=== PATIENT | male | born 1950 | race Caucasian/White ===

== ENCOUNTER → 2017-04-26 | Outpatient (CLI) | payer MEDICARE, SELFPAY | PROVIDERS: Visit Provider Nurse Practitioner Family | DX: Z02.4 Encounter for examination for driving license (principal) ==

== ENCOUNTER → 2017-06-05 07:27 | Outpatient (CLI) | payer MEDICARE, SELFPAY ==
[2017-06-05 07:47] LABS: Basophils % 0.2 % (0.1-2.0); Eosinophils # 0.2 K/mm3 (0.0-0.4); Eosinophils % 2.9 % (0.1-12.0); Hematocrit 42.3 % (42.0-52.0); Hemoglobin 14.1 g/dL (14.1-18.0); Lymphocytes # 1.3 K/mm3 (0.7-4.5); Lymphocytes % 23.9 K/mm3 (10-50); Mean Corpuscular HGB Conc 33.3 g/dL (31.8-35.4); Mean Corpuscular Hemoglobin 29.9 pg (27.0-31.2); Mean Corpuscular Volume 89.9 fl (80-94); Mean Platelet Volume 7.7 fl (7.4-10.4); Monocytes # 0.3 K/mm3 (0.1-1.0); Monocytes % 5.8 % (1.7-9.3); Neutrophils # 3.7 K/mm3 (1.8-7.8); Neutrophils % 67.3 % (37.0-80.0); Platelet Count 222 K/mm3 (142-424); Red Blood Count 4.71 M/mm3 (4.60-6.20); Red Cell Distribution Width 13.5 % (11.5-17.5); White Blood Count 5.5 K/mm3 (4.8-10.8)
[2017-06-05 08:53] LABS: Erythrocyte Sedimentation Rate 11 mm/hr (0-20)
[2017-06-05 13:08] LABS: C-Reactive Protein < 0.2 mg/L (0.0-0.9)
== END ==
PROVIDERS: PCP Family Medicine; Visit Provider Orthopaedic Surgery
DX: Z01.818 Encounter for other preprocedural examination (principal); M17.10 Unilateral primary osteoarthritis, unspecified knee
CPT/HCPCS: 36415; 85025; 85651; 86140

== ENCOUNTER → 2017-06-17 08:07 | Outpatient (CLI) | payer MEDICARE, SELFPAY ==
[2017-06-17 10:00] LABS: Anion Gap 10.3 mEq/L (5-15); Blood Urea Nitrogen 15 mg/dL (7-18); Carbon Dioxide 29 mmol/L (21.0-32.0); Chloride 107 mmol/L (98-107); Creatinine,Serum 1.04 mg/dL (0.70-1.30); Estimated Glomerular Filt Rate 71 ml/min (>60); GFR (African American) 86 ML/MIN (>60); Glucose 109 mg/dL (74-106); Potassium 4.3 mmoL/L (3.5-5.1); Sodium 142 mmol/L (136-145)
== END ==
PROVIDERS: Family Provider Family Medicine; PCP Family Medicine; Visit Provider Orthopaedic Surgery
DX: M17.12 Unilateral primary osteoarthritis, left knee (principal); Z01.818 Encounter for other preprocedural examination
CPT/HCPCS: 36415; 80048; 86850

== ENCOUNTER 2017-06-19 11:30 | Inpatient (IN) | payer MEDICARE, SELFPAY ==
[2017-06-16 10:49] VITALS: BMI 27.3
[2017-06-19] VITALS (21 sets, daily range): BP systolic 129–157; BP diastolic 67–90; PULSE 76–104; RESP 12–18; TEMP 34.4–43; O2SAT 94–99; BMI 29.2
--- NOTE | 2017-06-19 11:20 | P.PN_ITS ---
[facility] Anesthesia Checklist - Patient Identification Patient Identification: Arm Band - Structural Data Admitted From: Home Planned Operative Procedure/s: left tka Consent for Planned Operative Procedure(s) Verified: Yes Verified Documents: Surgical Consent, History and Physical - NPO Status Verified Time NPO: 00:00 - Additional verifications Anesthesia Reactions: No - Airway Assessment C-Spine Mobility Assessed: Yes (mp2) TMJ Mobility Assessed: Yes Dentition: Good Dentition - Neurological Assessment Level of Consciousness: Awake, Alert - Anesthesia Plan Anesthesia Risk discussed: Yes Anesthesia Plan: Verified ASA Class: I Anesthesia Type: General (with fem/sciatic nerve block) [facility] Anesthesia HX I have reviewed the patient's past medical history: Yes Medical History: Denies:: Cancer, Diabetes Mellitus Type 1, Diabetes Mellitus Type 2, MRSA, Seizures Other Medical History: Denies: Blood Transfusion Reaction Laterality Cases: Right: Arthroscopy Shoulder, Bilateral: Other Other Surgeries: Yes: Other (Back surgery x3) Amputation: No Fractures: No *Family Hx:: Cancer
--- NOTE | 2017-06-19 11:45 | XR_ITS ---
XR knee LT 2V Ordering Physician: Matheus Garrison MD Patient Age: 67 years: Male HISTORY: ITS.REASON: post op TECHNIQUE: AP lateral left knee postop COMPARISON :. Preoperative left knee 03/14/2017 FINDINGS Left TKA now place. The components appear to be in good position with satisfactory relationships.. . No fracture nor loosening. Postsurgical changes throughout soft tissues of the leg with air and gas most evident throughout the anterior soft tissues of the lower thigh, as well as, Anterior to the knee and proximal tibia. IMPRESSION: Left ERIC a.m. place Recent Postsurgical changes. Evident
--- NOTE | 2017-06-19 13:03 | PC.NURSE ---
16F coude used as resistance met upon insertion
[2017-06-19 14:51] LABS: Microscopic,Cath URINE MICROSCOPIC (MICROSCOPIC)
--- NOTE | 2017-06-19 15:13 | HMH.ANESI ---
[facility] Anesthesia Record Part I Intake, IV Amount: 2,500 Estimated blood loss (mL): 10 Urine output (mL): 300 Blood Pressure: 155/88 SaO2: 96 Pulse Rate: 88 Respiratory Rate: 12 Temperature: 99.3 F Patient is:: Drowsy, Stable Stable to PACU at:: 15:15
--- NOTE | 2017-06-19 15:15 | P.PN_ITS ---
[facility] Anesthesia Record Part II Discharge Time: 15:45 Destination: floor PACU nurse assessment reviewed?: Yes Patient Condition:: Good Anesthesia Complications:: None
[2017-06-19 15:16] LABS: Appearance,Urine/Cath CLEAR (Clear); Bilirubin,Cath Negative (Negative); Blood, Urine/Cath Negative (Negative); Color,Urine/Cath YELLOW (Yellow); Glucose,Urine/Cath (UA) Negative (Negative); Ketones,Urine/Cath Negative (Negative); Leukocyte Esterase,Cath Negative (Negative); Nitrate,Cath Negative (Negative); Protein,Urine/Cath Negative (Negative); Urobilinogen,Cath 0.2 EU/dl (0.2)
[2017-06-19 15:37] LABS: RBC,Urine/Cath Occasional # /hpf (0-3); WBC,Urine/Cath Occasional #/hpf (0-3)
--- NOTE | 2017-06-19 19:12 | PC.NURSE ---
pt has not used overage shortage and damage clerk pump
[2017-06-20] VITALS (9 sets, daily range): BP systolic 104–151; BP diastolic 58–90; PULSE 58–96; RESP 18–20; TEMP 36.5–37.3; O2SAT 93–98
--- NOTE | 2017-06-20 03:24 | PC.NURSE ---
Patient laying in bed resting at this time with spouse at bedside. Has not complained of any pain this shift. Has not yet been up on bedside. Encouraged patient to notify RN when ready to get up. Has repositioned self with standby assist. No edema, strong pulses in foot. Lungs are clear, resp even and nonlabored, + bowel sounds x 4. IV is patent. Has no needs at this time. Bed locked in low position, side rails up x 2. Call Light within reach.
[2017-06-20 06:42] LABS: Eosinophils % 0.1 % (0.1-12.0); Hematocrit 36.8 % (42.0-52.0); Hemoglobin 12.9 g/dL (14.1-18.0); Lymphocytes # 0.7 K/mm3 (0.7-4.5); Lymphocytes % 3.3 K/mm3 (10-50); Mean Corpuscular HGB Conc 34.9 g/dL (31.8-35.4); Mean Corpuscular Hemoglobin 30.7 pg (27.0-31.2); Mean Corpuscular Volume 87.8 fl (80-94); Mean Platelet Volume 7.5 fl (7.4-10.4); Monocytes # 0.6 K/mm3 (0.1-1.0); Monocytes % 2.6 % (1.7-9.3); Neutrophils # 20.6 K/mm3 (1.8-7.8); Neutrophils % 93.9 % (37.0-80.0); Platelet Count 234 K/mm3 (142-424); Red Blood Count 4.19 M/mm3 (4.60-6.20); Red Cell Distribution Width 13.2 % (11.5-17.5); White Blood Count 21.9 K/mm3 (4.8-10.8)
[2017-06-20 06:44] LABS: MANUAL DIFFERENTIAL MANUAL DIFFERENTIAL (MANUAL DIFF)
[2017-06-20 06:58] LABS: Anion Gap 12.8 mEq/L (5-15); Blood Urea Nitrogen 18 mg/dL (7-18); Carbon Dioxide 25 mmol/L (21.0-32.0); Chloride 106 mmol/L (98-107); Creatinine Clearance Estimated 92 mL/min (0-300); Estimated Glomerular Filt Rate 74 ml/min (>60); GFR (African American) 90 ML/MIN (>60); Glucose 138 mg/dL (74-106); Potassium 3.8 mmoL/L (3.5-5.1); Sodium 140 mmol/L (136-145)
--- NOTE | 2017-06-20 07:32 | PC.NURSE ---
Report received from Cuauhtemoc Benjamin RN.
--- NOTE | 2017-06-20 07:43 | P.CONPHA_ITS ---
[facility] Pharmacy VTE Monitoring - Patient Demographics Admission date: 06/19/17 Report Date: 06/20/17 Time: 07:43 Allergies/Adverse Reactions: Patient Allergies onion [ONION] Allergy (Mild, Verified 06/19/17 09:40) Height: 1.78 m Weight: 92.249 kg - VTE Risk Labs: VTE Related Lab Results Hgb 12.9 g/dL (14.1-18.0) L 06/20/17 06:05 Hct 36.8 % (42.0-52.0) L 06/20/17 06:05 Plt Count 234 K/mm3 (142-424) 06/20/17 06:05 BUN 18 mg/dL (7-18) 06/20/17 06:05 Creatinine 1.00 mg/dL (0.70-1.30) 06/20/17 06:05 Estimated Creat Clear 92 mL/min (0-300) 06/20/17 06:05 Was VTE Risk Assessment Performed: Yes VTE Score: 5 VTE Risk Level: Low Risk Clinical Trial Participant: No - Prophylaxis VTE Prophylaxis Ordered?: Yes Types of VTE Prophylaxis: TEDS Knee High, IPCS Thigh High Location of Applied Device: Right Leg
--- NOTE | 2017-06-20 11:09 | HMH.PTEV ---
Physical Therapy Evaluation Rehab PT IP Evaluation Start: 06/20/17 10:54 Freq: ONCE Status: Active Protocol: Document 06/20/17 10:54 PWANAT (Rec: 06/20/17 11:09 [email or web address] [id number]) Subjective/History History History This is the initial PT eval for Matheus Kuhn. Pt admitted to [facility] s/p L TKA Subjective Subjective Pt rpeorts nerve block is still active - pt was unable to extend knee or pump ankle Rehab PT IP Eval Objective Appearance Patient Behavior Appropriate Patient Orientation Person Place Time Name Year Patient Baseline Difficulty following instructions none Speech Pattern Clear Ambulation Patient Able to Ambulate Yes Ambulation Observation IP General Gait Pattern Observation Decrease Weight Bear (L) Decrease Stride Lngth (L) Ambulation Distance (feet) 2 Ambulation Assistive Device Rolling Walker Balance Ability to Arise Able, uses arms to help Sitting Balance Steady, safe Standing Balance Steady, wide stance Dynamic Sitting Balance Ability Normal Dynamic Standing Balance Ability Fair Transfers Bed Transfer Ability Independent Chair Transfer Ability Supervision/Stand by Sit to Stand Bed Transfer Ability Contact Guard/Hand Hold Sit to Stand Chair Transfer Ability Contact Guard/Hand Hold ROM LLE PT ROM Status ABN Abnormal ROM Comment significant limit 2nd to swelling and bandage MMT LLE PT MMT ABN Abnormal MMT Grade 2+/5 second to nerve block Rehab PT IP prob,goals,plan Problems Date of Evaluation: 06/20/17 PT IP Problems Transfers Gait Balance Self care Rehab Potential Rehab Potential Good Equipment Needs Assistive Devices Rolling / Wheeled Walker Plan PT Intervention Plan Bed Mobility Transfers Gait Balance Safety Therapeutic Exercise PT Plan Frequency BID Duration LOS Discharge Goals Bed Transfer Ability Supervision/Stand by Sit to Stand Chair Transfer Ability Supervision/Stand by Ambulation Assistive
[2017-06-20 12:41] LABS: Lymphocytes % 3 % (10-50); Monocytes % 2 % (2-9); Neutrophils % 95 % (42-76); Total Cells Counted 100
[2017-06-20 12:45] LABS: Platelet Estimate Normal; RBC Morphology Normal
--- NOTE | 2017-06-20 14:28 | HMH.ORTHPN ---
Subjective Date: 06/20/17 Time: 14:28 Interval history: Status post left total knee arthroplasty. Sleeping. Adequate pain control. Hematocrit approximately 36%. Dressing clean and dry. Sensate to light touch. Moves ankle and toes without difficulty. Pedal pulses intact. Up to chair with physical therapy but has not really been walking. PN: Obj Ex Vital signs: Temp Pulse Resp BP Pulse Ox 98.2 F 80 18 120/58 98 06/20/17 13:43 06/20/17 13:43 06/20/17 13:43 06/20/17 13:43 06/20/17 13:43 - Urinary Catheter Management Wang Cath placed during this visit: yes Urethral indwelling: No Insertion date: 06/19/17 Insertion time: 12:20
--- NOTE | 2017-06-20 16:14 | PC.NURSE ---
Pt A&Ox3. VSS. Afebrile. Pt c/o pain 3-08/08 and medicated with PO narcotics per JUN. Pt is opting to use PO meds in lieu of OPHTHALMOLOGY ASSISTANT Morphine. Heart rate reg. Lungs CTA. (R) FA IV infusing LR @ 25ml/hr /s difficulty or s/s of infiltration/infection. Abd soft, non-tender /c active BS x4 quads. Pt reports no BM since surgery and is expelling flatus per anus. (L) knee kim wrap intact /s drng. Ice bag applied to (L) knee on top of drsg. Pt refused JENNIFER hose this shift. Visitors at bedside intermittently throughout shift. Will continue to monitor.
--- NOTE | 2017-06-20 16:45 | SW/DCPLANNER ---
Visited this patient this afternoon regarding discharge plans. Patient and discussed a few different options: outpatient therapy and arranging transportation for three days a week OR swingbed. At this time therapy has stated that patient is improving and swingbed stay may not be necessary. I have discussed this with family but have stated that we will follow up with patient and therapy in the AM to see how patient is feeling/cooperation with therapy. Patient did not have any other questions or needs at this time.
[2017-06-21] VITALS (11 sets, daily range): BP systolic 116–153; BP diastolic 65–87; PULSE 64–89; RESP 16–20; TEMP 36.4–37.1; O2SAT 90–98; BMI 29.1
--- NOTE | 2017-06-21 01:14 | PC.NURSE ---
LAYING IN BED RESTING AT THIS TIME. SPOUSE AT BEDSIDE. HAS REST WELL MOST OF SHIFT. HAS USED PAIN PUMP AND PO PAIN MEDS 2 X THIS SHIFT. LAST RATED PAIN AT A 3. STATES THAT IS A TOLERABLE LEVEL. HAS O2 AT 2L PER NC FOR WOUND HEALING. HAS HAD ICE PACKS APPLIED. ENCOURAGED RANGE OF MOTION, EDUCATED ON RISK OF CLOTTS. LUNGS ARE CLEAR, RESP EVEN AND NONLABORED, AFEBRILE. IV IS PATENT. HAS NO NEEDS AT THIS TIME. BED LOCKED IN LOW POSITION, SIDE RAILS UP X 2, CALL LIGHT WITHIN REACH. ENCOURAGED TO CALL OUT IF NEEDS. WILL CONTINUE TO MONITOR.
--- NOTE | 2017-06-21 04:20 | PC.NURSE ---
INCREASED INSTRUCTIONAL TECHNOLOGY TEACHER PUMP TO 1.5 MG MORPHINE Q 10 MIN WITH LOCKOUT OF 20MG IN 4 HOUR PER PROTOCOL. PT WAS REMAINING IN PAIN DESPITE PAIN MED. WILL CONTINUE TO MONITOR.
--- NOTE | 2017-06-21 11:45 | P.PN_ITS ---
Subjective Date: 06/21/17 Time: 11:20 Principal diagnosis: Status post total knee arthroplasty, left Interval history: Patient of Dr. Garrison seen on the floor as he is out of town. Patient is status post left total knee arthroplasty post op day #2. Patient is sitting up in a chair. Says he is doing well and reports no problems. Patient reports moderate knee pain and says it's well-controlled with medication. Patient still reports some paresthesias in the left foot from the nerve blocks. No history of any nausea or vomiting. No history of any cough, chest pain, shortness of breath or palpitations. Patient is eating and drinking well. Patient says he managed to walk well with the help of physical therapist using a walker. PN: Obj Ex Vital signs: Temp Pulse Resp BP Pulse Ox 97.8 F 67 20 153/85 94 L 06/21/17 11:26 06/21/17 11:26 06/21/17 11:26 06/21/17 11:26 06/21/17 11:26 Narrative: Laboratory Results - last 24 hr 06/20/17 06:05: Total Counted 100, Neutrophils % (Manual) 95 H, Lymphocytes % ( Manual) 3 L, Monocytes % (Manual) 2, Platelet Estimate Normal, RBC Morphology Normal Intake & Output 06/20/17 06/21/17 06/21/17 19:59 03:59 11:59 Intake Total 1261 / 1261 1959 Output Total 951 / 951 Balance 310 / 310 1959 Physical exam: General appearance: alert, active, awake, no acute distress ENT: normal exam; mucous membranes moist Neck: Soft and supple, trachea midline, full range of movements Cardiovascular: regular rate & rhythm, S1-S2 heard, normal peripheral pulses Respiratory: clear to auscultation, normal breath sounds Abdomen: Soft and nontender, normal bowel sounds Neuro: alert, oriented x 3, business employment specialist II-XII normal as tested Psych: normal and appropriate mood/affect; communicates well Extremities: On examination of the left knee, the dressings are clean, dry and intact. I have changed the dressings today and the surgical incision looks clean, dry and healthy. No erythema or discharge noted. Knee range of motion is 5-80? of flexion. Distal pulses are 2+. Capillary refill is brisk. Patient has paresthesias over the left foot from the nerve blocks. Thigh and calf are soft and nontender. Extensor mechanism is clinically intact and quadriceps is actively barbie. Patient is able to actively lift the leg off the chair. - Urinary Catheter Management Wang Cath placed during this visit: yes Urethral indwelling: No Insertion date: 06/19/17 Insertion time: 12:20 Progress Note: A&P (1) S/P total knee arthroplasty Start date: 06/20/17 Status: Acute Assessment and plan: Status post left total knee arthroplasty, postoperative day #2, doing well I reviewed the findings and progress with the patient and his . I have changed the dressings today and the incision is clean and healthy. Patient started physical therapy and mobilization with the help of physical therapist. Discontinue IV fluids as eating and drinking well. Discontinue PIECE WORK CHECKER and continue oral and IV pain medication as needed. Continue DVT prophylaxis. Care management to look into discharge planning- patient wants to go home with appropriate equipment and outpatient physical therapy. Current Visit: Yes
--- NOTE | 2017-06-21 16:38 | PC.NURSE ---
MR. MERCER WILL NEED A ROLLING WALKER RATHER THAN A CANE DUE TO TOTAL LEFT KNEE REPLACEMENT AND GAIT IMMOBILITY ISSUES. OLIVIER CHANEL, MSN, RN
--- NOTE | 2017-06-21 17:59 | PC.NURSE ---
67 YEAR OLD WHITE MALE PRESENTED TO THE HOSPITAL FOR A LEFT KNEE REPLACEMENT. HE HAS DONE WELL TODAY AND AMBULTAED IN THE HALLWAY WITH PHYSICAL THERAPY. HIS IV FLUIDS AND QUALITY ASSURANCE TECHNICIAN PUMP HAVE BEEN DISCONTINUED AND HE PLANS TO DISCHARGE HOME TOMORROW AND COME BACK FOR OUTPATIENT THERAPY. HE HAS BEEN UP IN THE CHAIR MOST OF THE DAY. HIS LUNGS ARE CTA, HE CONTINUES TO COMPLAIN OF PAIN AND WOULD LIKE TO KEEP IT BELOW [address] FITZGERALD VISITED AT BEDSIDE AND HIS DRESSING WAS CHANGED AT THAT TIME. HE CONTINUES TO USE ICE PACKS ON 20 AND OFF 20 MINUTES. HIS HAS VISITED AT BEDSIDE TODAY. HE HAS BEEN GIVEN PAIN MEDICATION EVERY 4 HOURS TODAY. WILL CONTINUE TO MONITOR. OLIVIER CHANEL, MSN, RN
[2017-06-22 04:00] VITALS: BP 138/88; PULSE 95; RESP 20; TEMP 36.8; O2SAT 96
--- NOTE | 2017-06-22 05:42 | PC.NURSE ---
C/O PAIN IN L KNEE, ADMINISTERED 1-2 TAB PER MAR. 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 REPORTED SMALL BROWN, LIQUID STOOL. DRESSING ON L KNEE, CDI. AMBULATES INDEPENDENTLY WITH ROLLING WALKER. VSS. WILL CONTINUE TO MONITOR.
--- NOTE | 2017-06-22 07:20 | PC.NURSE ---
REPORT GIVEN TO Lauren PELAYO W/C
--- NOTE | 2017-06-22 07:39 | PC.NURSE ---
REPORT GIVEN TO Marek CHANEL RN
[2017-06-22 07:48] VITALS: BP 138/84; PULSE 103; RESP 20; TEMP 36.9; O2SAT 96
[2017-06-22 08:00] VITALS: RESP 20
[2017-06-22 08:42] VITALS: RESP 20
--- NOTE | 2017-06-22 09:18 | SW/DCPLANNER ---
Rolling walker has been delivered to this patient from [facility].
[2017-06-22 10:44] LABS: Basophils % 0.1 % (0.1-2.0); Eosinophils # 0.2 K/mm3 (0.0-0.4); Eosinophils % 1.4 % (0.1-12.0); Hemoglobin 13.2 g/dL (14.1-18.0); Lymphocytes # 1.8 K/mm3 (0.7-4.5); Lymphocytes % 14.6 K/mm3 (10-50); Mean Corpuscular HGB Conc 33.7 g/dL (31.8-35.4); Mean Corpuscular Hemoglobin 30.3 pg (27.0-31.2); Mean Corpuscular Volume 89.8 fl (80-94); Mean Platelet Volume 7.7 fl (7.4-10.4); Monocytes % 7.6 % (1.7-9.3); Neutrophils # 9.6 K/mm3 (1.8-7.8); Neutrophils % 76.3 % (37.0-80.0); Platelet Count 238 K/mm3 (142-424); Red Blood Count 4.34 M/mm3 (4.60-6.20); Red Cell Distribution Width 13.4 % (11.5-17.5); White Blood Count 12.6 K/mm3 (4.8-10.8)
--- NOTE | 2017-06-22 12:35 | HMH.DCSUM ---
General - General Admission date: 06/19/17 Discharge date: 06/22/17 HPI HPI: The patient is a 67-year-old male with end-stage left knee osteoarthritis and was admitted electively following an uncomplicated primary uncemented Left total knee replacement on 06/19/2017. He has not responded well to conservative options including NSAID, Tylenol, and interarticular injections for his knee osteoarthritis. He is used assistive walking devices. He is physically active and has a BMI of 28. Total knee arthroplasty is indicated as he is experiencing locking and near falling episodes. The surgical and nonsurgical alternatives were discussed in detail with the patient as well as the risks and benefits of the surgery. He has no significant past medical history. Objective Vital signs: Temp Pulse Resp BP Pulse Ox 98.4 F 103 H 20 138/84 96 06/22/17 07:48 06/22/17 07:48 06/22/17 08:42 06/22/17 07:48 06/22/17 07:48 no acute distress, morbidly obese - *Routine Respiratory Exam Present: CTA bilaterally - *Routine Cardiovascular Exam Present: RRR, Normal S1, Normal S2 - *Routine Abdominal Exam Present: soft, normoactive bowel sounds - *Routine Extremities Exam Comments: On examination of his left knee, the dressings are clean, dry and intact. Knee range of motion is 5? to 100? of flexion. There is diffuse moderate swelling and tenderness around the knee. No erythema, induration or discharge noted. There is 1+ edema over the foot and ankle. Dorsalis pedis and posterior tibial pulses are 2+. Capillary refill is brisk. Sensation is intact to light touch throughout. Thigh and calf are soft and nontender. - *Routine Skin Exam Present: intact, normal turgor - *Routine Neurological Exam Present: alert, oriented X3, CN II-XII intact, normal speech - Routine Psychiatric Exam Present: normal affect, normal thought process, cooperative, good insight, good judgment Hospital Course Hospital Course: Patient underwent an uncomplicated straightforward primary left total knee arthroplasty on 06/19/2017. Following surgery patient progressed well without any complications. His postoperative check x-ray was satisfactory with good alignment and fixation of the components. His postop course was satisfactory and uneventful. He progressed rapidly with physical therapy and was able to mobilize using a walker. He also regained good quadriceps control and was able to actively straight leg raise at the time of discharge. His pain is well controlled with as needed oral Lortab 5. The dressings were changed on the second postoperative day and also at the time of discharge and the wound is healthy and healing well. No signs of any erythema, induration or discharge. He was started on aspirin 325 mg daily for DVT for prophylaxis after surgery. His neurovascular status in both lower extremities is intact. Pedal pulses 2+ bilaterally and fully sensate distally. No clinical evidence of DVT noted. Patient was cleared for discharge by physical therapy. On the day of discharge, the wound is clean and dry. The patient's vital signs have been stable throughout and he is afebrile at the time of discharge. He is being discharged home with self-care. He wants to come to the hospital physical therapy department for outpatient PT. His postop course was uneventful. He progressed well with physical therapy and also regained good quadriceps control. Condition at discharge: improved and stable. Treatments and Procedures: Total knee arthroplasty, left knee; date of surgery 06/19/2017. Results Labs on day of discharge: Labs from last 24 hours 06/22/17 10:38 WBC 12.6 H D RBC 4.34 L Hgb 13.2 L Hct 39.0 L MCV 89.8 MCH 30.3 MCHC 33.7 RDW 13.4 Plt Count 238 MPV 7.7 Neut % (Auto) 76.3 Lymph % (Auto) 14.6 Hettinger % (Auto) 7.6 Eos % (Auto) 1.4 Baso % (Auto) 0.1 Neut # (Auto) 9.6 H Lymph # (Auto) 1.8 Hettinger # (Auto) 1.0 Eos # (Au
--- NOTE | 2017-06-27 12:44 | HMH.OPNOTE ---
Date of procedure: 06/19/17 Pre-op Diagnosis:: Left knee osteoarthritis Post-op diagnosis:: same Procedure performed:: Left total knee arthroplasty Surgeon:: Matheus Garrison MD Tin Flipper(s):: Dr. 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 Blood loss was minimal due to) Operative findings:: The patient was taken to the operating room and placed in the supine position. The patient had received twice daily applications of Bactroban and had applied Hibiclens daily to the involved knee operative site for the 5 days prior to surgery. After appropriate identification, timeout verification, the involved right knee was prepped and draped in the usual sterile fashion. The entire operative team wore isolation suits. The operative site was sealed with Ioban. Preoperative antibiotics consisting of Ancef were given. A midline incision was made with a #10 blade and the tissue sharply dissected. A medial parapatellar incision was made sharply and electrocautery used to seal blood vessels. The patella was carefully everted and a rongeur used to remove osteophytes. The knee was gently flexed and we observe to ensure no disruption of the patella tendon at its insertion occurred. We remove the anterior portions of the medial and lateral menisci and the majority of the fat pad. The ACL was sacrificed. An entry drill was used to drill the cortex of the femur just medial to the insertion of the PCL and anterior by around 1 cm. This allowed entry into the femoral canal. We irrigated it and then placed the intramedullary alignment guide. We then pinned the distal cutting guide in position for a standard cut. Soft tissue retractors were placed and a etechies.in oscillating precision saw used to remove the distal femur. We checked for trueness of the cut and then sized the femur at a size [7] for the Orthocon system. We placed two drill holes at 3? external rotation, checked Whitesides line and the epicondylar axis, and secured the 4-in-1 cutting block. Soft tissue retractors were placed in the anterior cut made followed by the posterior cut and the 2 chamfer cuts. Trueness of cut was confirmed and we placed the extra medullary guide for the tibia. This was placed in the distal aspect of the guide used to center on the distal tibia at approximately the level of the second ray. This alignment was confirmed by the surgeon, the surgeon's assistant surgeon, and even the manager product marketing. We measured off the more worn medial tibial plateau for a 3 mm resection. Using soft tissue guides, the oscillating precision saw was again utilized. We measured depth of cut and work to protect the PCL. The tibia was resected and sized at a size [6]. We removed the posterior aspects of the medial and lateral menisci. We did note that the popliteus tendon had incurred a partial laceration as the tibial plateau was resected. Its overall integrity remained stable and no loss of lateral stabilization incurred. We trialed with the appropriate femoral component and the tibia as well. We used the patella clamp and milled for the patella medializing this. The femoral component a bit lateralized to allow patella tracking. We trialed the components and found the patella to track nicely without any tendency to dislocate. There was no lift off of the tibial tray thus indicating the PCL tensioning was appropriate. Knee flexion was to approximately 120 degrees and extension was to 0?. We decided on this construct for final implantation. The femoral lug holes were punched and the tibial tray placed in slight external rotation, pinned, and the punch for the stem utilized. We then irrigated copiously with pulsatile lavage. Ancef 2 g was mixed with 20 mL of normal saline and injected into the cancellous bone. The femoral canal was plugged with resected bone and pulsatile la
--- NOTE | 2017-06-27 12:52 | P.OP_ITS ---
Date of procedure: 06/19/17 Pre-op Diagnosis:: Left knee osteoarthritis Post-op diagnosis:: same Procedure performed:: Left total knee arthroplasty Surgeon:: Matheus Garrison MD Laboratory Clerk(s):: Dr. Gunderson, indicated secondary to the complexity of the case PAVER LAYER:: Other Anesthesia: GETA, regional Estimated blood loss (mL): -10 (See anesthesia sheet. Blood loss was minimal due to) Operative findings:: The patient was taken to the operating room and placed in the supine position. The patient had received twice daily applications of Bactroban and had applied Hibiclens daily to the involved knee operative site for the 5 days prior to surgery. After appropriate identification, timeout verification, the involved right knee was prepped and draped in the usual sterile fashion. The entire operative team wore isolation suits. The operative site was sealed with Ioban. Preoperative antibiotics consisting of Ancef were given. A midline incision was made with a #10 blade and the tissue sharply dissected. A medial parapatellar incision was made sharply and electrocautery used to seal blood vessels. The patella was carefully everted and a rongeur used to remove osteophytes. The knee was gently flexed and we observe to ensure no disruption of the patella tendon at its insertion occurred. We remove the anterior portions of the medial and lateral menisci and the majority of the fat pad. The ACL was sacrificed. An entry drill was used to drill the cortex of the femur just medial to the insertion of the PCL and anterior by around 1 cm. This allowed entry into the femoral canal. We irrigated it and then placed the intramedullary alignment guide. We then pinned the distal cutting guide in position for a standard cut. Soft tissue retractors were placed and a [employer] oscillating precision saw used to remove the distal femur. We checked for trueness of the cut and then sized the femur at a size [7] for the Retevo system. We placed two drill holes at 3? external rotation, checked Whitesides line and the epicondylar axis, and secured the 4-in-1 cutting block. Soft tissue retractors were placed in the anterior cut made followed by the posterior cut and the 2 chamfer cuts. Trueness of cut was confirmed and we placed the extra medullary guide for the tibia. This was placed in the distal aspect of the guide used to center on the distal tibia at approximately the level of the second ray. This alignment was confirmed by the surgeon, the administrative services assistant surgeon , and even the product design engineer. We measured off the more worn medial tibial plateau for a 3 mm resection. Using soft tissue guides, the oscillating precision saw was again utilized. We measured depth of cut and work to protect the PCL. The tibia was resected and sized at a size [6]. We removed the posterior aspects of the medial and lateral menisci. We did note that the popliteus tendon had incurred a partial laceration as the tibial plateau was resected. Its overall integrity remained stable and no loss of lateral stabilization incurred. We trialed with the appropriate femoral component and the tibia as well. We used the patella clamp and milled for the patella medializing this. The femoral component a bit lateralized to allow patella tracking. We trialed the components and found the patella to track nicely without any tendency to dislocate. There was no lift off of the tibial tray thus indicating the PCL tensioning was appropriate. Knee flexion was to approximately 120 degrees and extension was to 0?. We decided on this construct for final implantation. The femoral lug holes were punched and the tibial tray placed in slight external rotation, pin
== END 2017-06-22 15:00 | disposition home or self-care (01) | DRG 470 ==
LOC: 2ND 11:31
PROVIDERS: Orthopaedic Surgery; Admitting Provider Orthopaedic Surgery; Family Provider Family Medicine; PCP Family Medicine; Visit Provider Orthopaedic Surgery
PROC: (CPT 27447; principal; 2017-06-19 11:00)
DX: M17.12 Unilateral primary osteoarthritis, left knee (principal)
CPT/HCPCS: 27447; 36415; 73560; 80048; 81001; 85007; 85025; 86850; 94761; 96374; 97116; 97161; 97530; C1765; C1776; J2405

== ENCOUNTER → 2017-07-03 13:15 | Outpatient (CLI) | payer MEDICARE, SELFPAY ==
--- NOTE | 2017-07-03 13:37 | XR_ITS ---
XR knee LT 3V HISTORY: Follow-up surgery/total knee arthroplasty ITS.REASON: lt knee post op ORDERING PHYSICIAN: Matheus Garrison MD PATIENT AGE: 67 years COMPARISON: 06/19/2017 FINDINGS: Status post total knee arthroplasty. There is good alignment of the prosthesis. No obvious orthopedic, . IMPRESSION: Good alignment status post total knee arthroplasty
--- NOTE | 2017-07-03 14:22 | NVE_ITS ---
Venous Exam Indications: 729.5 Pain in limb. IMPRESSIONS 1. There is no evidence of significant Reflux. 2. Small, acute superficial vein thrombosis involving the leftlesser saphenous vein. History: Left lower extremity pain. Risk factors: Hypertension. Medications: ASA, 81 mg daily. Labs, prior tests, procedures, and surgery: Left lower extremity joint prosthesis (recent, 20-Jun-2017). Labs, prior tests, procedures, and surgery: Left lower extremity joint prosthesis (recent, 20-Jun-2017). Left lower extremity venous duplex evaluation. Doppler flow study including spectral analysis, color and suazo scale imaging. Location: Vascular laboratory. Patient status: Outpatient. CRITICAL FINDINGS - Reported to: Dr. Meli Peña office - Read back and verified. - 07/03/17 - 15:00 - SVT in LSV, no DVT seen Tables: Venous flow and imaging: + + + + Location Overall Flow properties + + + + Right common femoral Patent Normal phasicity; spontaneous; normal augmentation; compressible + + + + Right saphenofemoral Patent Compressible junction + + + + Right profunda femoral Patent Compressible + + + + Right femoral Patent Normal phasicity; spontaneous; normal augmentation; compressible + + + + Right greater saphenous Patent Normal phasicity; spontaneous; normal augmentation; compressible + + + + Right popliteal Patent Normal phasicity; spontaneous; normal augmentation; compressible + + + + Right posterior tibial Patent Compressible + + + + Right peroneal Patent Compressible + + + + Right gastrocnemius Patent Compressible + + + + Right soleal Patent Compressible + + + + Left lesser saphenous Partially occluded Noncompressible + +
== END ==
PROVIDERS: PCP Family Medicine; Visit Provider Orthopaedic Surgery
DX: Z96.652 Presence of left artificial knee joint (principal); M79.605 Pain in left leg
CPT/HCPCS: 73562; 93971

== ENCOUNTER 2017-08-07 08:00 | Outpatient (RCR) | payer MEDICARE, SELFPAY ==
--- NOTE | 2017-06-23 15:34 | HMH.PTOPEV ---
Rehab Outpatient Evaluation Rehab OP Evaluation Start: 06/23/17 15:24 Freq: Status: Active Protocol: Document 06/23/17 15:25 ALIYAH (Rec: 06/23/17 15:34 ALIYAH [id number]) Electronically Signed By Jai Mckay, PT 06/23/17 15:25 Outpatient Therapy Subjective History Subjective History Pt presents s/p L TKA on . Pt reports 'feels like it' s doing pretty good so far', reporting moderate pain, improving ROM, and improving gait. Next MD appt 07/03/17 Chief Complaint Pain Stiff Weakness Symptom Type Ache Dull Symptoms Relieved By Rest/Positioning Symptoms Aggravated By Physical Activity Walking Prior Functional Limitations None Current Functional Limitations Standing Squatting Walking Stairs Symptom Description Constant but Variable Level of pain today (0-10) 3 Pain scale - at its best (0-10) 3 Pain scale - at its worst (0-10) 6 Hip/Knee Eval Gait Observation General Gait Pattern Observation Antalgic Gait Assistive Device Assistive Devices Rolling / Wheeled Walker Palpation Tenderness left Knee Palpation Finding Tenderness Knee Palpation Overall Comment 2/4 MMT right Hip Strength Reason Not Measured WFL Knee Strength Reason Not Measured WFL left Hip Flexion Strength Grade 5 Normal Hip Abduction Strength Grade 4- Good- Hip Adduction Strength Grade 4- Good- Hip Extension Strength Grade 4- Good- Knee Extension Strength Grade 4 Good Knee Flexion Strength Grade 4 Good ROM right Knee Flexion Active Range of Motion ( 0-130 degrees) left Knee Flexion Active Range of Motion ( 10-95 degrees) Outpatient Therapy Assessment Impairments Problems/Impairmments Palpation Tenderness Impaired Range of Motion Impaired Strength Impaired Gait Pattern Impaired Walking Impaired Standing Impaired Household Care Impaired Stair Climbing Impaired Squatting Subjective C/O Pain Impaired Self Care/Self
== END 2017-08-07 08:01 | disposition home or self-care (01) ==
LOC: PT 08:00
PROVIDERS: Family Provider Family Medicine; PCP Family Medicine; Visit Provider Orthopaedic Surgery
DX: Z96.652 Presence of left artificial knee joint (principal); M25.562 Pain in left knee
CPT/HCPCS: 97010; 97014; 97016; 97110; 97140; 97164; G0283

== ENCOUNTER → 2017-08-21 10:02 | Outpatient (CLI) | payer MEDICARE, SELFPAY ==
--- NOTE | 2017-08-21 10:04 | NVE_ITS ---
Venous Exam Indications: 729.5 Pain in limb. IMPRESSIONS 1. There is no evidence of significant Reflux. 2. No evidence of deep vein thrombosis involving the left lower extremity 3. Superficial vein thrombosis of LSV Disease regression from the study of 03-Jul-2017. Improved from prior exam History: Risk factors: history ofsuperficial vein thrombosis of lesser saphaneous vein Left lower extremity venous duplex evaluation. Doppler flow study including spectral analysis, color and suazo scale imaging. Location: Vascular laboratory. Patient status: Outpatient. Tables: Venous flow and imaging: + +-------+ + Location Overall Flow properties + +-------+ + Left common femoral Patent Normal phasicity; spontaneous; normal augmentation; compressible + +-------+ + Left saphenofemoral junction Patent Compressible + +-------+ + Left profunda femoral Patent Compressible + +-------+ + Left femoral Patent Normal phasicity; spontaneous; normal augmentation; compressible + +-------+ + Left greater saphenous Patent Normal phasicity; spontaneous; normal augmentation; compressible + +-------+ + Left popliteal Patent Normal phasicity; spontaneous; normal augmentation; compressible + +-------+ + Left posterior tibial Patent Compressible + +-------+ + Left peroneal Patent Compressible + +-------+ + Left gastrocnemius Patent Compressible + +-------+ + Left soleal Patent Compressible + +-------+ + (Report amended ) Electronically signed by: Geronimo Jolly [id number]
== END ==
PROVIDERS: Family Provider Family Medicine; PCP Family Medicine; Visit Provider Orthopaedic Surgery
DX: M25.562 Pain in left knee (principal); I82.492 Acute embolism and thrombosis of other specified deep vein of left lower extremity
CPT/HCPCS: 93971

== ENCOUNTER 2017-09-06 09:00 | Outpatient (RCR) | payer MEDICARE, SELFPAY | END 2017-09-06 09:01 | disposition home or self-care (01) | LOC: PT 09:00 | PROVIDERS: Family Provider Family Medicine; PCP Family Medicine; Visit Provider Orthopaedic Surgery | DX: I82.890 Acute embolism and thrombosis of other specified veins (principal); Z96.652 Presence of left artificial knee joint | CPT/HCPCS: 97161 ==

== ENCOUNTER → 2017-11-07 08:24 | Outpatient (CLI) | payer MEDICARE, SELFPAY ==
--- NOTE | 2017-11-07 08:28 | XR_ITS ---
XR knee LT 2V HISTORY: Follow-up total knee replacement ITS.REASON: S/P LEFT TKA ORDERING PHYSICIAN: Matheus Garrison MD PATIENT AGE: 67 years COMPARISON: 07/03/2017 FINDINGS: Overall no change status post total knee replacement with good alignment. There remains some soft tissue swelling in the suprapatellar region. IMPRESSION: No change status post total knee replacement
== END ==
PROVIDERS: Visit Provider Orthopaedic Surgery
DX: Z96.652 Presence of left artificial knee joint (principal)
CPT/HCPCS: 73560

== ENCOUNTER 2018-04-12 09:03 | Outpatient (CLI) | payer SELFPAY | END 2018-04-12 10:35 | disposition home or self-care (01) | PROVIDERS: Visit Provider Nurse Practitioner Family | DX: Z02.4 Encounter for examination for driving license (principal) ==

== ENCOUNTER → 2019-04-08 09:04 | Outpatient (CLI) | payer MEDICARE, SELFPAY ==
--- NOTE | 2019-04-08 09:14 | CT_ITS ---
PROCEDURE: CT ABDOMEN PELVIS WO/W CON CLINICAL INDICATION: RENAL MASS Follow-up renal mass COMPARISON: CTAC CTA-CHEST from 07/20/2016 CT ABDOMEN PELVIS WO CON from 03/27/2019 US KIDNEY from 03/27/2019 TECHNIQUE: IV Contrast: 75ML OPTIRAY 350 Oral Contrast none Axial images obtained with sagittal and coronal reformats. All CT scans at the facility use one or more dose reduction, viz: automated exposure control, ma/kV adjustment per patient size (including targeted exams where dose is matched to indication, i.e. head), or iterative reconstruction technique. FINDINGS: LOWER THORAX: Mild atelectatic or fibrotic change in the left lung base. Small hiatal hernia. ABDOMEN & PELVIS: The liver, spleen, adrenal glands, and pancreas have an unremarkable appearance. There is an exophytic complex nodule along the lower pole of the right kidney which measures 12 mm corresponding to [address] CT abnormality noted on the 03/27/2019. No renal or ureteral calculi. No hydronephrosis. No retroperitoneal adenopathy. The left kidney has an unremarkable appearance. No pelvic mass abnormal fluid collection or focal inflammatory change. There is some increased soft tissue density in the right inguinal area which could be related to prior hernia repair. There is a small left inguinal hernia containing fat. Moderate to severe degenerative changes are present in the lumbar spine with postsurgical changes of the lumbar spine as well. IMPRESSION: Exophytic solid-appearing 12 mm nodule along the lower pole of the right kidney suspicious for a small renal neoplasm. Dictated by: Geronimo Jolly MD 04/08/2019 13:55 Electronically signed by Geronimo Jolly MD in [place] 04/09/2019 09:57
[2019-04-08 09:27] LABS: Blood Urea Nitrogen 15 mg/dL (7-18); Creatinine,Serum 1.21 mg/dL (0.70-1.30); Estimated Glomerular Filt Rate 59 ml/min (>60); GFR (African American) 72 ML/MIN (>60)
== END ==
PROVIDERS: PCP Family Medicine; Visit Provider Urology
DX: N28.89 Other specified disorders of kidney and ureter (principal)
CPT/HCPCS: 36415; 74178; 82565; 84520; Q9967

== ENCOUNTER → 2023-01-06 09:23 | Outpatient (CLI) | payer MEDICARE, SELFPAY ==
--- NOTE | 2023-01-06 | CA_ITS ---
APPROVED REPORT Exam: Exercise Treadmill Technologist: Sherri Ayala, Ht: 5 ft 10 in Wt: 195 lbs BSA: 2.07 m2 HR: 74 bpm BP: 157/96 mmHg Rhythm: NSR, PVCS Medical History Allergies: ONION Cardiac Risk Factors: FHX of CAD Stress Test Details Test: Tevin HR Resting HR: 81 bpm Max Heart Rate (APMHR): 147 bpm Max HR Achieved: 144 bpm Target HR (85% APMHR): 125 bpm % of APMHR: 98 Recovery HR: 89 bpm HR response to stress: Normal HR response to stress BP Resting BP: 152.0/96 mmHg Max BP: 200/85 mmHg Recovery BP: 162.0/95.0 mmHg BP response to stress: Abnormal hypertensive response to stress. ECG Resting ECG: NSR, PVCS Stress EC mm ST depression Arrhythmia: Frequent PVCs (bigeminy pattern), couplets, triplets, and PACs Recovery ECG: Return to baseline within 3 minutes of recovery Recovery Arrhythmia: PVCs Clinical Exercise duration: 06:39 min Highest Stage Achieved: Exercise capacity: 7.0 METs Overall Exercise Capacity for Age: Average Stress ECG Conclusion PT EXERCISED 6:39 ON TEVIN PROTOCOL. SHE WAS ABLE TO ACHIEVE A TOTAL OF 7.0 METS. SHE HAS A NORMAL HR, BUT EXAGGERATED HYPERTENSIVE BP, RESPONSE TO EXERCISE. MAX HR: 144 % OF PM: 98% MAX BP: 200/85 METS: 7.0 TEST STOPPED DUE TO: SOA, FATIGUE NO CP FREQUENT MULTIFOCAL PVCS WITH PERIODS OF VENTRICULAR BIGMEMINY, OCCASIONAL VENTRICULAR COUPLET, AT LEAST ONE TRIPLET. MODERATELY FREQUENT PACS [address] DEPRESSION INFEROLATERALLY CONCLUSION AVERAGE EXERCISE CAPACITY EXAGGERATED HYPERTENSIVE BP RESPONSE TO EXERCISE FREQUENT ECTOPY ABN GXT SUGGESTIVE OF ISCHEMIC CHANGES GXT ONLY (NO IMAGING) Test Summary REST . . . . . . . Sitting REST . . . . . . . Standing REST 27:55 0.0 0.0 81 . 152/ 96 . . Stage 1 01:00 10.0 1.7 99 . . . . Stage 1 02:00 10.0 1.7 107 . . . . Stage 1 03:00 10.0 1.7 107 . 160/ 90 . . Stage 2 01:00 12.0 2.5 119 . . . . Stage 2 02:00 12.0 2.5 124 . . . . Stage 2 03:00 12.0 2.5 136 . 180/ 90 . . Stage 3 00:39 14.0 3.4 144 . . . Stop exercise at 06:39 RECOVERY 01:00 0.0 0.0 119 . . . . RECOVERY 02:00 0.0 0.0 103 . . . . RECOVERY 03:00 0.0 0.0 93 . 200/ 85 . . RECOVERY 04:00 0.0 0.0 89 . 185/ 90 . . RECOVERY 05:00 0.0 0.0 87 . 185/ 90 . . RECOVERY 06:00 0.0 0.0 91 . 172/ 88 . . RECOVERY 07:00 0.0 0.0 89 . 172/ 88 . . RECOVERY 08:00 0.0 0.0 90 . 162/ 95 . . RECOVERY 09:00 0.0 0.0 85 . 162/ 95 . . RECOVERY 09:13 0.0 0.0 85 . 162/ 95 . . Electronically signed by : Mona Costello, 01/17/2023 15:10:52
== END ==
PROVIDERS: PCP Family Medicine; Visit Provider Family Medicine
DX: R06.02 Shortness of breath (principal); Z82.49 Family history of ischemic heart disease and other diseases of the circulatory system
CPT/HCPCS: 93017

== ENCOUNTER 2023-05-19 15:42 | Outpatient (CLI) | payer MEDICARE, SELFPAY ==
[2023-05-19 16:44] LABS: Blood Urea Nitrogen 20 mg/dl (9-20); Estimated Glomerular Filt Rate 50 ml/min (>60); GFR (African American) 60 ML/MIN (>60)
== END 2023-05-19 23:59 ==
LOC: LAB 15:44
PROVIDERS: PCP Family Medicine; Visit Provider Internal Medicine
DX: R94.39 Abnormal result of other cardiovascular function study (principal)
CPT/HCPCS: 36415; 82565; 84520

== ENCOUNTER 2023-05-25 06:56 | Outpatient (CLI) | payer MEDICARE, SELFPAY ==
--- NOTE | 2023-05-25 06:56 | CT_ITS ---
APPROVED REPORT Keel Press Operator: CLINICAL INDICATION Chest Pain TECHNIQUE Image Acquisition: A 128 slice MDCT scanner ([employer] View) was used for data acquisition. A noncontrast coronary calcium scan was performed. A CT attenuation threshold of 130 Hounsfield units (HU) was used for the detection of calcium in contiguous voxels of 1 sq mm in area to be counted as individual lesions. Bolus tracking in the ascending aorta with a threshold of 180 HU was performed. Immediately afterwards, ECG synchronized cardiac CT was then performed from the cardiac base to apex using retrospective gating with ECG tube current modulation. A total of 85 mL of Isovue 370 mg/mL contrast medium was administered at 5 mL/sec followed by a saline flush using a biphasic injection protocol. A tube voltage of 120 KVp was used. The patient received the following medications prior to the cardiac CT. 75 mg of oral metoprolol 15 mg of oral ivabradine 0.8 mg of sublingual nitroglycerin The average heart rate at the time of acquisition was 45 bpm and regular. Image Reconstruction Transaxial images were reconstructed at 0.67 mm slide thickness. Data was reviewed interactively on an advanced workstation capable of 2 and 3-dimensional displays in all conventional reconstruction formats, including multiplanar reformations, maximum intensity projections, curved multiplanar reformations, and volume rendered reconstructions. When applicable, selected routine images describing the relevant coronary anatomy and pathology were saved and sent to PACS. Complications None Technical Quality Overall image quality was good. Coronary artery opacification was adequate. Total DLP (Dose-Length Product) is 2309.3 mGy-cm. The reported value represents the total of one or more individual components during the CT acquisition of this date and at this time, and as such, the same value may appear in more than one CT report depending on the interpreting/reporting physicians. COMPARISON None FINDINGS CT Coronary Calcium Scoring LMA (Left Main Artery) = 131 LAD (Left Anterior Descending) = 426 LCX (Left Coronary Circumflex) = 92 RCA (Right Coronary Artery) = 0 Total Calcium Score = 649 using the AJ-130 method. The observed calcium score of 649 is at 72nd percentile for subjects of the same age, sex, and race/ethnicity. The interpretation of the calcium heart score is based on the following continuum*: 0 = no calcified plaque detected (risk of coronary artery disease is very low ??? less than 5%) 1-10 = calcium detected in extremely minimal levels (risk of coronary diseases is still low ??? less than 10%) 11-100 = mild levels of plaque detected with certainty (mild or minimal narrowing of heart arteries is likely) 101-400 = definite,at least moderate levels of plaque detected (relatively high risk of a heart attack within 3-5 years) >401-999 = extensive levels of plaque detected (high risk of heart attack, high levels of vascular disease are present, high likelihood of at least one significant coronary narrowing) *The calcium heart score quantifies the burden of coronary calcification/plaque in the coronary arteries. The calcium heart score is not able to evaluate the presence or burden of non-calcified (i.e. soft) plaque. There is also identifiable calcification in the ascending and descending thoracic aorta, but not the aortic valve, mitral annulus or mitral valve, pericardium, or myocardium. Coronary CT Angiography The coronary arterial system is left dominant. Quantitative Stenosis Grading: Left Main (LM): The left main originates normally from the left sinus of Valsalva. The LM bifurcates into the left anterior descending artery and left circumflex artery. There is non-calcified plaque in the ostial LM, with approximately 10-30% luminal stenosis. Left Anterior Descending (LAD) and Diagonal Branches: The LAD gives off 3 diagonal branches. There are multiple mixed and eccentric plaque in the proximal and mid-LAD at the level of bifurcation, with an elongated segment of up to 70-90% luminal stenosis. and LAD and its branches are patent with no evidence of atherosclerosis. There is no evidence of LAD bridge. Left Circumflex (LCX) and Obtuse Marginals (OM): The LCX gives off 2 Obtuse Marginal (OM) branch(es). The LCX gives rise to the posterior descending artery. There is mixed plaque in the proximal LCX of up to 30-50% luminal stenosis. Right Coronary Artery (RCA): The RCA originates normally from the right sinus of Valsalva. The RCA is a small caliber vessel. The RCA lumen is difficult to visualize due to small caliber. The RCA lumen grossly appears normal, but cannot entirely rule out luminal narrowing. Non-Coronary Cardiac Findings: Analysis of the left ventricular (LV) structure and function was performed after 3-D reconstruction of the LV from axial images, with user-corrected automatic contouring for assessment of LV volumes and user-defined reconstruction from oblique planes for measurement of 3-D cardiac structure and function. LVEDV: 121 mL LVESV: 41 mL SV: 81 mL LVEF: 66.5 % -The left ventricle is normal in size with normal left ventricular systolic function. -There is no left atrial appendage filling defect. Two right pulmonary veins and two left pulmonary veins drain normally into the left atrium. -No pericardial thickening or calcification. -Central and branch pulmonary arteries in the [id number] are unremarkable. -Thoracic aorta within the visualized thoracic aortic-branches in the [id number] is unremarkable. Extracardiac Structures No significant extra-cardiac findings. Note, however, that this study is focused on the cardiac findings. IMPRESSION -Presence of extensive coronary calcification with an Agatston score = 649 using the AJ-130 method. -The observed calcium score of 649 is at 72nd percentile for subjects of the same age, sex, and race/ethnicity. -Significant, severe, and likely flow-limiting atherosclerosis of the proximal and mid LAD starting at the bifurcation, as well as moderate stenosis in the LCX (left dominant circulation). -CAD-RADS 4A. Management recommendations per ACC/AHA guidelines*, as clinically appropriate. -Calcification in the ascending and descending thoracic aorta *Recommendations: CAD RADS 0: Reassurance. Consider non-atherosclerotic causes of chest pain. CAD RADS 1: Consider non-atherosclerotic causes of chest pain. Consider preventive therapy and risk factor modification. CAD RADS 2: Consider non-atherosclerotic causes of chest pain. Consider preventive therapy and risk factor modification, particularly for patients with nonobstructive plaque in multiple segments. CAD RADS 3: Consider further functional testing. Consider symptom-guided anti-ischemic and preventive pharmacotherapy as well as risk factor modification per published guideline statements. CAD RADS 4A: Consider further functional testing or invasive coronary angiography with revascularization per published guideline statements. Consider symptom-guided anti-ischemic and preventive pharmacotherapy as well as risk factor modification per published guideline statements. CAD RADS 4B: Invasive coronary angiography recommended with revascularization per published guideline statements. Consider symptom-guided anti-ischemic and preventive pharmacotherapy as well as risk factor modification per published guideline statements. CAD RADS 5: Consider invasive angiography and/or viability assessment with revascularization per published guideline statements. Consider symptom-guided anti-ischemic and preventive pharmacotherapy as well as risk factor modification per published guideline statements. CRITICAL RESULT None COMMUNICATION Per this written report The coronary and cardiac findings of this CCTA were reviewed, reported, and signed by Aubrey Costello MD (Dip Brazier) Conclusion Electronically signed by : Mona Costello MD 05/25/2023 13:12:31
[2023-05-25 07:32] VITALS: BP 141/81; PULSE 78; RESP 17; O2SAT 99
[2023-05-25] MEDS: METOPROLOL TARTRATE 25MG TABLET *IVABRADINE+METOPROLOL REGIMINE 25 MG PO (07:32)
[2023-05-25] MEDS: METOPROLOL TARTRATE 50MG TABLET *IVABRADINE+METOPROLOL REGIMINE 50 MG PO (07:32)
[2023-05-25] MEDS: IVABRADINE HCL 7.5MG TABLET *IVABRADINE+METOPROLOL REGIMINE 15 MG PO (07:32)
[2023-05-25 07:59] VITALS: BMI 29.1
[2023-05-25 08:26] VITALS: BP 140/74; PULSE 51; RESP 17; O2SAT 98
[2023-05-25] MEDS: NITROGLYCERIN 0.4MG SL TABLET 0.800000000000000044 MG SL (08:26)
[2023-05-25 08:30] VITALS: BP 123/76; PULSE 64; RESP 17; O2SAT 100
[2023-05-25 08:35] VITALS: BP 90/60; PULSE 47; RESP 17; O2SAT 100
[2023-05-25 08:40] VITALS: BP 105/55; PULSE 45; RESP 18; O2SAT 99
[2023-05-25] MEDS: 0.9 % SODIUM CHLORIDE 50 ML VIAL IV (08:45)
[2023-05-25] MEDS: SODIUM CHLORIDE 0.9% 10ML SYR (RAD ONLY) 10 ML IV (08:45)
[2023-05-25] MEDS: IOPAMIDOL-370 (76%);100ML BOTTLE 85 ML IV (08:45)
== END 2023-05-25 09:25 | disposition home or self-care (01) ==
PROVIDERS: PCP Family Medicine; Visit Provider Internal Medicine
DX: R94.30 Abnormal result of cardiovascular function study, unspecified (principal); R94.39 Abnormal result of other cardiovascular function study; R94.31 Abnormal electrocardiogram [ECG] [EKG]; I25.10 Atherosclerotic heart disease of native coronary artery without angina pectoris; R07.9 Chest pain, unspecified; I25.84 Coronary atherosclerosis due to calcified coronary lesion
CPT/HCPCS: 75571; 75574; Q9967

== ENCOUNTER 2023-05-29 15:48 | Outpatient (CLI) | payer MEDICARE, SELFPAY ==
[2023-05-29 16:43] LABS: Basophils % 0.3 % (0.1-2.0); Eosinophils # 0.4 K/mm3 (0.0-0.4); Eosinophils % 4.1 % (0.1-12.0); Hematocrit 44.1 % (42.0-52.0); Hemoglobin 15.3 g/dL (14.1-18.0); Lymphocytes % 22.3 % (10-50); Mean Corpuscular HGB Conc 34.7 g/dL (31.8-35.4); Mean Corpuscular Hemoglobin 30.6 pg (27.0-31.2); Mean Corpuscular Volume 88.1 fl (80-94); Mean Platelet Volume 7.9 fl (7.4-10.4); Monocytes # 0.6 K/mm3 (0.1-1.0); Monocytes % 6.6 % (1.7-9.3); Neutrophils # 5.9 K/mm3 (1.8-7.8); Neutrophils % 66.7 % (37.0-80.0); Platelet Count 258 K/mm3 (142-424); Red Cell Distribution Width 13.8 % (11.5-17.5); White Blood Count 8.8 K/mm3 (4.8-10.8)
[2023-05-29 17:28] LABS: Alanine Aminotransferase 16 U/L (12-78); Albumin Level 4.1 g/dl (3.5-5.0); Alkaline Phosphatase 81 U/L (38-126); Anion Gap 10.5 mEq/L (5-15); Aspartate Amino Transferase 26 U/L (17-59); Bilirubin,Direct 0.1 mg/dl (0.0-0.4); Bilirubin,Indirect 0.3 mg/dL (0.0-0.9); Bilirubin,Total 0.4 mg/dl (0.2-1.3); Bilirubin,Unconjugated 0.3 mg/dL (0.0-1.1); Blood Urea Nitrogen 19 mg/dl (9-20); Calcium 9.6 mg/dl (8.4-10.2); Carbon Dioxide 28 mmol/L (22.0-30.0); Chloride 105 mmol/L (98-107); Chol/HDL Ratio 5.7 (1-3.5); Cholesterol 183 mg/dl (140-200); Estimated Glomerular Filt Rate 54 ml/min (>60); GFR (African American) 65 ML/MIN (>60); Glucose 85 mg/dl (74-100); HDL Cholesterol 32 mg/dl (40-60); Magnesium 1.8 mg/dl (1.6-2.3); Potassium 4.5 mmoL/L (3.5-5.1); Sodium 139 mmol/L (136-145); Total Protein,Serum 6.7 g/dl (6.3-8.2); Triglycerides 193 mg/dl (30-150); VLDL Cholesterol 39 mg/dL (0-40)
[2023-05-29 17:45] LABS: Free T4 (Free Thyroxine) 0.87 ng/dl (0.78-2.19)
[2023-05-29 17:58] LABS: Thyroid Stimulating Hormone 2.78 uIU/mL (0.465-4.68)
== END 2023-05-29 23:59 ==
LOC: LAB 15:49
PROVIDERS: PCP Family Medicine; Visit Provider Internal Medicine
DX: I25.10 Atherosclerotic heart disease of native coronary artery without angina pectoris (principal); I25.84 Coronary atherosclerosis due to calcified coronary lesion; R93.1 Abnormal findings on diagnostic imaging of heart and coronary circulation; R94.31 Abnormal electrocardiogram [ECG] [EKG]; R53.83 Other fatigue
CPT/HCPCS: 36415; 80048; 80061; 80076; 83735; 84439; 84443; 85025

== ENCOUNTER 2023-06-02 12:15 | Observation (INO) | payer MEDICARE, SELFPAY ==
[2023-06-02] VITALS (22 sets, daily range): BP systolic 103–190; BP diastolic 63–103; PULSE 56–112; RESP 15–19; TEMP 36.6–36.7; O2SAT 94–100; BMI 29.0
--- NOTE | 2023-06-02 07:08 | IR_ITS ---
APPROVED REPORT Patient Location: Outpatient PROCEDURES Left heart catheterization Left ventriculogram Selective coronary angiogram Drug-eluting stent deployment to the ostial proximal and mid LAD Intravascular ultrasound of the LAD INDICATION Coronary artery disease, Abnormal CCTA, Complex intervention requiring IVUS guidance for improved mortality outcomes Informed consent was obtained prior to the procedure. COMPLICATIONS NONE Estimated Blood Loss: LESS THAN 10 ML TECHNIQUE One percent lidocaine used to anesthetize the right anterior aspect of the wrist. The right radial artery was accessed via the Seldinger technique. A 6 Malagasy sheath was placed in the right radial artery. 2.5 mg of Verapamil, 800 mcg of nitroglycerin, 1mg Lidocaine and 5000 U Heparin were given through the arterial sheath. The papa catheter was also used to perform left heart catheterization, left ventriculogram and selective coronary angiogram. At the end of the diagnostic angiogram therapeutic heparin was administered giving a therapeutic ACT and the guide catheter was placed in the left main artery followed by Choice PT extra-support wire down the LAD. A 2.5 mm balloon was used to predilate the stenosis in the LAD. A 3 mm x 26 mm Dixon frontier stent was deployed at 18 gallo reducing the stenosis. An additional 2.5 x 12 mm Buddy frontier stent was placed distal to this deployed at 18 gallo with the balloon brought back and deployed at 22 gallo to post dilate. A 3 mm x 8 mm Dixon frontier stent was placed proximal to the first 3 mm stent and then deployed at 20 gallo. The ostium was missed after intravascular ultrasound probe was advanced therefore 3.5 x 12 mm Dixon frontier stent was deployed at 20 gallo in the proximal LAD overlapping the 8 mm LAD stent. The balloon was advanced throughout the proximal portion and deployed at 20 gallo to post dilate. Intravascular ultrasound probe indicated the ostium was still missed therefore an additional 3.5 x 8 mm Buddy frontier stent was placed proximal to the 12 mm stent and then deployed at 20 gallo. Intravascular ultrasound probe was advanced which demonstrated wide patency of the LAD following revascularization with no encroachment upon the left main artery. After achieving excellent angiographic results and using 5 drug-eluting stents the apparatus was removed the sheath was removed good hemostasis was achieved using TR banding patient was transferred to the postop holding in stable condition ANGIOGRAPHIC RESULTS The left main artery Has ostial and distal 10 to 20% stenoses as confirmed by IVUS The left anterior descending artery Has severe and extensive calcific disease from the ostium throughout the proximal segment midportion and distally. There are multiple 70,80 and 90% stenoses. The circumflex artery Is a massively large dominant vessel and has proximal 20 to 30% stenosis. It gives rise to a medium sized ramus intermedius which has a proximal 80 to 90% concentric stenosis. A large first obtuse marginal artery has a proximal concentric 30 to 40% stenosis. The terminal obtuse marginal artery also has mid vessel 10 to 20% stenoses The right coronary artery Nondominant occluded proximally with right to right collaterals and epuk-ex-mmnar collaterals. The HUNTER ventriculogram reveals Normal 65% The left ventricular end-diastolic pressure 10 mmHg IMPRESSION Extensive calcific disease throughout the proximal mid and distal LAD Successful stenting of the ostial and proximal LAD severe and critical disease reduced to 0% with 5 contiguous drug-eluting stents. Persistent 80 and 90% mid LAD stenoses and tandem 80 to 90% distal LAD stenoses which are too distal for bypass grafting. Chronically occluded nondominant right coronary artery which fills via right to right and [id number]-[id number] collaterals Normal ejection fraction Normal LVEDP PLAN 1. Effient 10 mg daily plus aspirin 81 mg daily 2. Medical management for the remaining calcific disease 3. LDL less than 55 to be achieved with high intensity statin 4. Aggressive control of hypertension 5. Admission overnight with IV fluids and monitoring for contrast nephropathy as well as controlling poorly controlled blood pressure 6. Cardiac rehabilitation Electronically signed by : Isaac Workman MD 06/02/2023 14:27:46
[2023-06-02 09:42] LABS: Basophils # 0.1 K/mm3 (0-0.2); Basophils % 0.9 % (0.1-2.0); Eosinophils # 0.4 K/mm3 (0.0-0.4); Eosinophils % 5.6 % (0.1-12.0); Hematocrit 48.6 % (42.0-52.0); Hemoglobin 16.5 g/dL (14.1-18.0); Lymphocytes % 26.5 % (10-50); Mean Corpuscular HGB Conc 33.9 g/dL (31.8-35.4); Mean Corpuscular Hemoglobin 30.9 pg (27.0-31.2); Mean Corpuscular Volume 91.3 fl (80-94); Mean Platelet Volume 7.9 fl (7.4-10.4); Monocytes # 0.4 K/mm3 (0.1-1.0); Monocytes % 5.6 % (1.7-9.3); Neutrophils # 4.7 K/mm3 (1.8-7.8); Neutrophils % 61.4 % (37.0-80.0); Platelet Count 278 K/mm3 (142-424); Red Blood Count 5.32 M/mm3 (4.60-6.20); Red Cell Distribution Width 14.1 % (11.5-17.5); White Blood Count 7.7 K/mm3 (4.8-10.8)
[2023-06-02 09:48] LABS: Chloride 106 mmol/L (98-107); Potassium 4.2 mmoL/L (3.5-5.1); Sodium 143 mmol/L (136-145)
[2023-06-02 09:51] LABS: Anion Gap 10.2 mEq/L (5-15); Blood Urea Nitrogen 14 mg/dl (9-20); Carbon Dioxide 31 mmol/L (22.0-30.0); Creatinine Clearance Estimated 65 mL/min (50-200); Estimated Glomerular Filt Rate 54 ml/min (>60); GFR (African American) 65 ML/MIN (>60); Glucose 105 mg/dl (74-100)
[2023-06-02] MEDS: VERAPAMIL 2.5MG/ML 2ML VIAL 2.5 MG IV (10:10)
[2023-06-02] MEDS: diphenhydrAMINE 50MG/ML VIAL 50 MG IV (10:10)
[2023-06-02] MEDS: NITROGLYCERIN 800MCG/8ML SYR (CATH LAB) 800 MCG IA (10:10)
[2023-06-02] MEDS: LIDOCAINE 1% 10ML MDV 20 ML IJ (10:10)
[2023-06-02] MEDS: HEPARIN 1,000 UNITS/500ML NS (CATH LAB) 3000 UNIT IV (10:11)
[2023-06-02] MEDS: MIDAZOLAM HCL 1MG/1ML 5ML VIAL 1 MG IV (10:11)
[2023-06-02] MEDS: HEPARIN 1,000 UNITS/ML 10ML VIAL (CATH LAB) 10000 UNIT IV (10:11)
[2023-06-02] MEDS: 0.9 % SODIUM CHLORIDE 500 ML 25 ML IV (10:11)
[2023-06-02] MEDS: FENTANYL 100MCG/2ML VIAL 50 MCG IV (10:12)
[2023-06-02] MEDS: PRASUGREL 10MG TAB 60 MG PO (11:24)
--- NOTE | 2023-06-02 11:27 | CA_ITS ---
FINAL REPORT TECHNIQUE: Spectral and color Doppler exam CLINICAL HISTORY: HTN COMPARISON: None FINDINGS: DOPPLER RENAL VESSELS HISTORY: Hypertension . FINDINGS: Intrarenal resistive indices on the right are 0.56, normal . Intrarenal resistive indices on the left are 0.74, normal . Renal size is normal and symmetric. Right main renal artery systolic velocity: 89 cm/sec. Aortic-right renal artery flow velocity ratio: 1.16 COMMENT: No evidence of hemodynamically significant renal artery stenosis . Left main renal artery systolic velocity: 123 cm/sec. Aortic-left renal artery flow velocity ratio: 1.6 COMMENT: No evidence of hemodynamically significant renal artery stenosis . IMPRESSION: No evidence of hemodynamically significant renal artery stenosis CTA or gadolinium-enhanced MR may be considered as a more sensitive exam. Alternatively noncontrast MRI may be considered for assessing main renal arteries for stenosis as a more sensitive exam if the patient has renal insufficiency. Reviewed, Interpreted and Dictated by Jackie Ashford MD Transcribed by Tammi Mejia Authenticated and [facility]
[2023-06-02] MEDS: IOPAMIDOL-370 (76%);100ML BOTTLE 220 ML IV (12:14)
--- NOTE | 2023-06-02 12:26 | HMH.PHAINT1 ---
Pharmacy Intervention Comments: MEDICATION RECONCILIATION COMPLETED ON PATIENT USING EXTERNAL FILL HISTORY FROM PHARMACY AND LIST FROM CARDIOLOGY OFFICE. -BARBARA ISRAEL, ISABELD
--- NOTE | 2023-06-02 12:39 | PC.NURSE ---
arrived by vicer from [facility]
[2023-06-02] MEDS: AMLODIPINE 10MG TABLET 10 MG PO (13:39)
[2023-06-02 15:05] LABS: CATHL Activated Clotting Time > 400 SEC (74-125)
--- NOTE | 2023-06-02 16:23 | PC.NURSE ---
right cath band removed and non adherent dressing placed with tegaderm.
--- NOTE | 2023-06-02 16:46 | P.HP_ITS ---
History of Present Illness *Admission Date: 06/02/23 *Reason for visit:: Heart cath, angioplasty *History of present illness: Mr. Kuhn is a 73-year-old white male with a very strong family history of coronary artery disease. He had an abnormal stress test performed in March. He also has high coronary calcium score. He was taken to [facility] today by Dr. Workman. He had extensive LAD disease and received 5 stents. He has an occluded right coronary artery. See heart catheterization report. He is admitted for observation overnight status post cath. Blood pressure is being monitored as well as renal function. Past history includes left knee replacement, right rotator cuff repair and bilateral inguinal hernia repairs. He has had multiple back surgeries. [facility] Disclaimer: The information contained in this section may have been updated after the patient was seen, as this information can be updated by other users. Medical History (Updated 06/02/23 @ 17:05 by Jackie Swan MD) Abnormal ECG Abnormal findings on diagnostic imaging of heart and coronary circulation Abnormal result of cardiovascular function study Coronary artery calcification Coronary artery disease Surgical History (Updated 06/02/23 @ 17:06 by Jackie Swan MD) History of back surgery History of hernia surgery History of knee replacement History of rotator cuff surgery S/P angioplasty with stent Family History Other Family history of cancer Family history of hyperlipidemia Family history of hypertension Family history of myocardial infarction Social History (Updated 06/02/23 @ 14:06 by Tika Mendoza RN) Smoking Status: Never smoker second hand exposure: No alcohol intake: never substance use type: denies use current occupational status: employed Travel in the last 8 weeks: Inside the [place] household members: spouse 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 current occupational exposures/hazards: No caffeine: Yes Review of Systems Review of Systems Review of systems:: pertinent systems reviewed and negative unless documented below Constitutional Constitutional: Denies anorexia, Denies body ache(s), Denies chills and Reports fatigue Eyes Eyes: Denies change in vision and Denies loss of vision ENT Ears, Nose, Mouth, and Throat: Reports system reviewed and no additional complaints, except as documented *Cardiovascular Cardiovascular: Denies chest pain at rest, Denies chest pain with activity, Denies claudication, Reports dyspnea on exertion, Denies irregular heart rhythm and Denies leg edema *Respiratory Respiratory: Denies chest congestion, Denies cough and Reports dyspnea on exertion *Gastrointestinal Gastrointestinal: Denies abdominal pain and Denies change in bowel habits *Genitourinary Genitourinary: Reports system reviewed and no additional complaints, except as documented *Musculoskeletal Musculoskeletal: Reports as per HPI and Denies abnormal gait Integumentary/Breasts Skin/Breast: Reports system reviewed and no additional complaints, except as documented *Neurologic Neurologic: Denies abnormal gait, Denies confusion, Denies convulsions, Denies localized weakness, Denies loss of vision and Denies seizure-like activity Psychiatric Psychiatric: Reports system reviewed and no additional complaints, except as documented and Denies confusion Endocrine Endocrine: Reports fatigue Hematologic/Lymphatic Hematologic/Lymphatic: Denies easy bleeding Allergic/Immunologic Allergic/Immunologic: Reports system reviewed and no additional complaints, except as documented Meds Home Medications and Allergies Home Medications Medication Instructions Recorded Confirmed Type amlodipine 10 mg tablet (Norvasc) 10 mg PO DAILY 30 days #30 tabs 06/02/23 Rx aspirin 81 mg tablet,delayed 81 mg PO DAILY Heart Health 06/02/23 06/02/23 History release atorvastatin 40 mg tablet 40 mg PO DAILY Cholesterol 06/02/23 06/02/23 History prasugrel 10 mg tablet (Effient) 10 mg PO DAILY 30 days #30 tabs 06/02/23 Rx New Prescriptions to Start Prescriptions: amlodipine [Norvasc] Isaac Workman prasugrel [Effient] Isaac Workman Allergies Allergy/AdvReac Type Severity Reaction Status Date / Time onion [ONION] Allergy Mild Verified 05/29/23 14:38 Exam Data for Last 24 hours Vital signs and Labs for Last 24 Hours: Temp Pulse Resp BP Pulse Ox O2 Del Method 97.9 F 72 18 113/66 99 Room Air 06/02/23 15:45 06/02/23 15:45 06/02/23 15:45 06/02/23 15:45 06/02/23 15:45 06/02/23 16:27 Laboratory Results - last 24 hr 06/02/23 09:30: WBC 7.7, RBC 5.32, Hgb 16.5, Hct 48.6, MCV 91.3, MCH 30.9, MCHC 33.9, RDW 14.1, Plt Count 278, MPV 7.9, Neut % (Auto) 61.4, Lymph % (Auto) 26.5, [place] % (Auto) 5.6, Eos % (Auto) 5.6, Baso % (Auto) 0.9, Neut # (Auto) 4.7, Lymph # (Auto) 2.0, [place] # (Auto) 0.4, Eos # (Auto) 0.4, Baso # (Auto) 0.1, Sodium 143, Potassium 4.2, Chloride 106, Carbon Dioxide 31 H, Anion Gap 10.2, BUN 14, Creatinine 1.30 H, Estimated Creat Clear 65, Estimated GFR 54 L, Est GFR ( Amer) 65, Glucose 105 H, Calcium 10.0 06/02/23 11:37: Activated Clotting Time > 400 H* I & O for Last 24 hours: Intake & Output 05/31/23 06/01/23 06/02/23 06/03/23 11:59 11:59 11:59 11:59 Weight 202 lb Constitutional Constitutional: no acute distress (Post catheterization) *Routine HEENT Exam Head: Present normocephalic Eye: Present PERRL ENT: Present mucous membranes moist *Routine Neck Exam Neck: Absent JVD or carotid bruit Routine Chest/Breast/Axilla Exam Chest wall: Absent tenderness *Routine Respiratory Exam Respiratory: Present CTA bilaterally and rales (A few bibasilar); Absent respiratory distress *Routine Cardiovascular Exam Cardiovascular: Present RRR and S4; Absent ectopic *Routine Abdominal Exam Abdominal: Present soft and surgical scars; Absent tenderness or mass *Routine Rectal Exam Rectal:: deferred *Routine Genitalia Exam Genitalia:: deferred *Routine Extremities Exam Extremities: Present cyanosis; Absent edema Routine Back/Spine/Pelvis Exam Back/Spine: Present kyphosis; Absent CVA tenderness *Routine Skin Exam Skin: Present intact; Absent cyanosis, erythema or mottling *Routine Neurological Exam Neurological: Present alert, oriented X3, CN II-XII intact and moving all extr emities Routine Psychiatric Exam Psychiatric: Present normal affect and normal thought process Assessment and Plan *Assessment and plan (1) Coronary artery disease: Status: Acute Category: Medical Code(s): I25.10 - Atherosclerotic heart disease of [place] coronary artery without angina pectoris (2) Coronary artery calcification: Status: Acute Category: Medical Code(s): I25.10 - Atherosclerotic heart disease of [place] coronary artery without angina pectoris; I25.84 - Coronary atherosclerosis due to calcified coronary lesion (3) S/P angioplasty with stent: Status: Acute Category: Surgical Code(s): Z95.820 - Peripheral vascular angioplasty status with implants and grafts (4) Abnormal findings on diagnostic imaging of heart and coronary circulation: Status: Acute Category: Medical Code(s): R93.1 - Abnormal findings on diagnostic imaging of heart and coronary circulation (5) History of knee replacement: Status: Acute Category: Surgical Code(s): Z96.659 - Presence of unspecified artificial knee joint Plan See orders. Overnight observation.
[2023-06-02] MEDS: ATORVASTATIN 40MG TABLET 40 MG PO (20:28)
--- NOTE | 2023-06-02 22:17 | PC.NURSE ---
Rounded on pt at 1999. pt refused to bath. Refilled pts watter pitcher and gave mt jefry.
[2023-06-03] VITALS: BP 108/46; PULSE 74; PULSE 78; RESP 16; TEMP 36.8; O2SAT 93
--- NOTE | 2023-06-03 02:50 | PC.NURSE ---
HAS HAD A UNEVENTFUL NIGHT. DRSG INTACT TO RIGHT WRIST. NO S/S OF BLEEDING OR COMPLICATIONS. SINUS ARRHYTHMIA ON THE MONITOT. DENIES SOA/CHEST PAIN/DISCOMFORT. VITAL SIGNS STABLE.
[2023-06-03 04:00] VITALS: BP 147/68; PULSE 68; RESP 18; TEMP 36.8; O2SAT 96; BMI 28.7
[2023-06-03 04:28] VITALS: PULSE 73
[2023-06-03 06:58] LABS: Basophils % 0.4 % (0.1-2.0); Eosinophils # 0.4 K/mm3 (0.0-0.4); Lymphocytes # 1.5 K/mm3 (0.7-4.5); Monocytes # 0.6 K/mm3 (0.1-1.0)
[2023-06-03 07:03] LABS: Chloride 107 mmol/L (98-107); Potassium 4.1 mmoL/L (3.5-5.1); Sodium 137 mmol/L (136-145)
[2023-06-03 07:06] LABS: Anion Gap 10.1 mEq/L (5-15); Blood Urea Nitrogen 14 mg/dl (9-20); Carbon Dioxide 24 mmol/L (22.0-30.0); Creatinine Clearance Estimated 69 mL/min (50-200); Estimated Glomerular Filt Rate 59 ml/min (>60); GFR (African American) 72 ML/MIN (>60)
[2023-06-03 07:07] LABS: Calcium 8.9 mg/dl (8.4-10.2); Glucose 112 mg/dl (74-100)
[2023-06-03 07:14] LABS: Eosinophils % 5.1 % (0.1-12.0); Hematocrit 39.9 % (42.0-52.0); Lymphocytes % 18.2 % (10-50); Mean Corpuscular HGB Conc 34.9 g/dL (31.8-35.4); Mean Corpuscular Hemoglobin 30.8 pg (27.0-31.2); Mean Corpuscular Volume 88.3 fl (80-94); Mean Platelet Volume 8.1 fl (7.4-10.4); Monocytes % 7.1 % (1.7-9.3); Neutrophils # 5.5 K/mm3 (1.8-7.8); Neutrophils % 69.2 % (37.0-80.0); Platelet Count 224 K/mm3 (142-424); Red Blood Count 4.51 M/mm3 (4.60-6.20); Red Cell Distribution Width 14.1 % (11.5-17.5)
[2023-06-03 07:18] LABS: Hemoglobin 13.9 g/dL (14.1-18.0)
[2023-06-03 08:00] VITALS: BP 127/62; PULSE 74; PULSE 80; RESP 20; TEMP 36.8; O2SAT 97
[2023-06-03] MEDS: PRASUGREL 10MG TAB 10 MG PO (09:00)
[2023-06-03] MEDS: AMLODIPINE 10MG TABLET 10 MG PO (09:00)
[2023-06-03] MEDS: ASPIRIN EC 81MG TABLET 81 MG PO (09:01)
--- NOTE | 2023-06-03 10:52 | EXP.ACUTE.PN ---
Subjective *Date: 06/03/23 *Time: 10:52 Interval history: He has done well overnight. He was able to rest. He has had no ectopics that I am aware of. He has no chest pain. Medical Exam Vital signs and Labs for Last 24 Hours: Vital Signs Temp Pulse Pulse Resp BP Pulse Ox O2 Del Method 06/03/23 08:00 98.3 F 74 20 127/62 97 Room Air 06/03/23 06:39 Room Air 06/03/23 05:00 Room Air 06/03/23 04:00 98.2 F 68 18 147/68 H 96 Room Air 06/03/23 04:28 73 06/03/23 03:00 Room Air 06/03/23 01:00 Room Air 06/03/23 00:00 78 06/03/23 00:00 98.3 F 74 16 108/46 L 93 L Room Air 06/02/23 23:00 Room Air 06/02/23 21:00 Room Air 06/02/23 20:00 97 Room Air 06/02/23 20:00 72 06/02/23 19:57 98.1 F 73 16 138/67 97 Room Air 06/02/23 18:45 97.9 F 60 18 133/88 100 Room Air 06/02/23 18:58 Room Air 06/02/23 17:45 97.9 F 112 H 18 144/102 H 100 Room Air 06/02/23 16:45 97.9 F 71 17 103/63 L 100 Room Air 06/02/23 16:00 80 06/02/23 16:27 Room Air 06/02/23 15:45 97.9 F 72 18 113/66 99 Room Air 06/02/23 14:45 97.9 F 77 18 134/71 99 Room Air 06/02/23 14:15 97.9 F 73 18 148/78 H 99 Room Air 06/02/23 13:45 97.9 F 60 18 167/103 H 98 Room Air 06/02/23 14:03 Room Air 06/02/23 13:15 97.9 F 56 L 18 190/98 H 99 Room Air 06/02/23 12:45 97.9 F 60 18 172/103 H 100 Room Air 06/02/23 13:00 Room Air 06/02/23 13:22 98 Room Air 06/02/23 12:30 60 15 163/92 H 99 06/02/23 12:15 58 L 17 161/92 H 99 06/02/23 12:00 61 15 160/88 H 98 06/02/23 11:45 56 L 17 151/93 H 97 06/02/23 11:40 58 L 15 160/89 H 97 06/02/23 11:35 57 L 15 149/89 H 96 06/02/23 11:37 56 L 06/02/23 11:30 56 L 19 153/89 H 98 Intake and Output 06/02/23 06/03/23 06/03/23 19:59 03:59 11:59 Intake Total 600 / 1790 650 / 1790 540 / 1790 Output Total Balance 600 / 1789 649 / 1789 540 / 1789 Intake: Intake, Oral Amount 600 / 1790 650 / 1790 540 / 1790 Output: Output, Urine Amount 0 Other: Number of Unmeasured Voids 1 Weight 200 lb 6.4 oz Patient Weight 06/03/23 11:59 Weight 200 lb 6.4 oz Laboratory Results - last 24 hr 06/02/23 11:37: Activated Clotting Time > 400 H* 06/03/23 06:24: WBC 8.0, RBC 4.51 L, Hgb 13.9 L D, Hct 39.9 L, MCV 88.3, MCH 30.8, MCHC 34.9, RDW 14.1, Plt Count 224, MPV 8.1, Neut % (Auto) 69.2, Lymph % (Auto) 18.2, [place] % (Auto) 7.1, Eos % (Auto) 5.1, Baso % (Auto) 0.4, Neut # (Auto) 5.5, Lymph # (Auto) 1.5, [place] # (Auto) 0.6, Eos # (Auto) 0.4, Baso # (Auto) 0.0, Sodium 137, Potassium 4.1, Chloride 107, Carbon Dioxide 24, Anion Gap 10.1, BUN 14, Creatinine 1.20, Estimated Creat Clear 69, Estimated GFR 59, Est GFR ( Amer) 72, Glucose 112 H, Calcium 8.9 I & O for Labs for Last 24 Hours: Intake & Output 01/31/06/01/23 06/02/23 06/03/23 11:59 11:59 11:59 11:59 Intake Total 1789 Output Total Balance 178 / 178 Weight 202 lb 200 lb 6.4 oz Head: Present normocephalic ENT: Present normal exam Neck: Present normal inspection Respiratory: Present CTA bilaterally Cardiac: Present Reg Rate and Rhythm (No ectopics) GI: Present soft; Absent tenderness Rectal (male): Present deferred (male): Present deferred Extremities: Absent edema Skin: Present intact Neuro: Present alert, awake and oriented x 3 Assessment and Plan *Assessment and plan (1) S/P angioplasty with stent: Status: Acute Category: Surgical Code(s): Z95.820 - Peripheral vascular angioplasty status with implants and grafts (2) Coronary artery disease: Status: Acute Category: Medical Code(s): I25.10 - Atherosclerotic heart disease of [place] coronary artery without angina pectoris (3) Coronary artery calcification: Status: Acute Category: Medical Code(s): I25.10 - Atherosclerotic heart disease of [place] coronary artery without angina pectoris; I25.84 - Coronary atherosclerosis due to calcified coronary lesion (4) Abnormal findings on diagnostic imaging of heart and coronary circulation: Status: Acute Category: Medical Code(s): R93.1 - Abnormal findings on diagnostic imaging of heart and coronary circulation (5) History of knee replacement: Status: Acute Category: Surgical Code(s): Z96.659 - Presence of unspecified artificial knee joint (6) History of back surgery: Status: Acute Category: Surgical Code(s): Z98.890 - Other specified postprocedural states Plan Discharge to home. Follow-up with Dr. Workman and Dr. Petersen. Continue atorvastatin 40 mg at bedtime, amlodipine 10 mg daily, Effient 10 mg a day, 81 mg aspirin daily.
[2023-06-03 12:00] VITALS: PULSE 80
--- NOTE | 2023-06-05 15:47 | SW/DCPLANNER ---
Follow up phone call w/ this patient: patient stated that he doing fine at home and does not have any needs at this time.
--- NOTE | 2023-06-11 22:39 | EXP.DC.SUM ---
General Admission date:: 06/02/23 Discharge date: 06/03/23 HPI HPI HPI: Mr. Kuhn is a 73-year-old white male with a very strong family history of coronary artery disease. He had an abnormal stress test performed in March. He also has high coronary calcium score. He was taken to medical lab scientist today by Dr. Workman. He had extensive LAD disease and received 5 stents. He has an occluded right coronary artery. See heart catheterization report. He is admitted for observation overnight status post cath. Blood pressure is being monitored as well as renal function. Past history includes left knee replacement, right rotator cuff repair and bilateral inguinal hernia repairs. He has had multiple back surgeries. Hospital Course Hospital Course Hospital Course: The patient was admitted overnight for observation. By 06/03/2023 he had done well and was able to rest. He had no ectopics and denied any chest pain. He was stable to be discharged home on atorvastatin, amlodipine, Effient, and aspirin. He will follow-up with both Dr. Workman and Dr. Petersen. Exam Data for Last 24 hours Vital signs and Labs for Last 24 Hours: Temp Pulse Resp BP Pulse Ox O2 Del Method 98.3 F 80 20 127/62 97 Room Air 06/03/23 08:00 06/03/23 12:00 06/03/23 08:00 06/03/23 08:00 06/03/23 08:00 06/03/23 08:00 Narrative: Constitutional Constitutional: no acute distress (Post catheterization) *Routine HEENT Exam Head: Present normocephalic Eye: Present PERRL ENT: Present mucous membranes moist *Routine Neck Exam Neck: Absent JVD or carotid bruit Routine Chest/Breast/Axilla Exam Chest wall: Absent tenderness *Routine Respiratory Exam Respiratory: Present CTA bilaterally and rales (A few bibasilar); Absent respiratory distress *Routine Cardiovascular Exam Cardiovascular: Present RRR and S4; Absent ectopic *Routine Abdominal Exam Abdominal: Present soft and surgical scars; Absent tenderness or mass *Routine Rectal Exam Rectal:: deferred *Routine Genitalia Exam Genitalia:: deferred *Routine Extremities Exam Extremities: Present cyanosis; Absent edema Routine Back/Spine/Pelvis Exam Back/Spine: Present kyphosis; Absent CVA tenderness *Routine Skin Exam Skin: Present intact; Absent cyanosis, erythema or mottling *Routine Neurological Exam Neurological: Present alert, oriented X3, CN II-XII intact and moving all extremities Routine Psychiatric Exam Psychiatric: Present normal affect and normal thought process DS: Diagnosis Discharge Diagnosis (1) S/P angioplasty with stent: Status: Acute Code(s): Z95.820 - Peripheral vascular angioplasty status with implants and grafts (2) Coronary artery disease: Status: Acute Code(s): I25.10 - Atherosclerotic heart disease of [place] coronary artery without angina pectoris (3) Coronary artery calcification: Status: Acute Code(s): I25.10 - Atherosclerotic heart disease of [place] coronary artery without angina pectoris; I25.84 - Coronary atherosclerosis due to calcified coronary lesion (4) Abnormal findings on diagnostic imaging of heart and coronary circulation: Status: Inactive Code(s): R93.1 - Abnormal findings on diagnostic imaging of heart and coronary circulation (5) History of knee replacement: Status: Acute Code(s): Z96.659 - Presence of unspecified artificial knee joint (6) History of back surgery: Status: Inactive Code(s): Z98.890 - Other specified postprocedural states Meds Home Medications and Allergies Home Medications Medication Instructions Recorded Confirmed Type amlodipine 10 mg tablet (Norvasc) 10 mg PO DAILY 30 days #30 tabs 06/02/23 Rx aspirin 81 mg tablet,delayed 81 mg PO DAILY Heart Health 06/02/23 06/02/23 History release atorvastatin 40 mg tablet 40 mg PO DAILY Cholesterol 06/02/23 06/02/23 History prasugrel 10 mg tablet (Effient) 10 mg PO DAILY 30 days #30 tabs 06/02/23 Rx New Prescriptions to Start Prescriptions: amlodipine [Norvasc] Isaac Workman prasugrel [Effient] Isaac Workman Allergies Allergy/AdvReac Type Severity Reaction Status Date / Time onion [ONION] Allergy Mild Verified 05/29/23 14:38 Discharge Plan Disposition Patient Disposition: Home, Self-Care Condition: Good Follow up Plan Follow up with: Michelet Petersen MD [Primary Care Provider] - 06/08/23 (please call for appointment ) Isaac Workman MD [Staff Physician] - 06/12/23 9:30 am (please call for appointment) Prescriptions/Medication Reconciliation: New amlodipine [Norvasc] 10 mg Tablet 10 mg PO DAILY 30 Days Qty: 30 6RF prasugrel [Effient] 10 mg Tablet 10 mg PO DAILY 30 Days Qty: 30 6RF Continued atorvastatin 40 mg tablet 40 mg PO DAILY aspirin 81 mg tablet,delayed release (DR/EC) 81 mg PO DAILY Other Ambulatory Orders: Basic Metabolic Panel (Timed) Timeframe: [id number] Facility: [facility] - Location: Laboratory Ordered By: Isaac Workman Hemoglobin and Hematocrit (Timed) Timeframe: 20230612 Facility: [facility] - Location: Laboratory Ordered By: Isaac Workman Problem Reconciliation Problems Reviewed?: Yes Patient Discharge Instructions ACTIVITY: Limited activity DIET: low fat, low cholesterol Patient Instructions: DI for Cardiac Catheterization, DI for Coronary Stenting, DI for Surgical Site Infection, DI for Moderate Sedation, DI for Post-Surgical Bleeding Providers Primary Care Provider: Michelet Petersen Admit Provider: Jackie Swan Attending Provider: Jackie Swan
== END 2023-06-03 12:20 | disposition home or self-care (01) ==
LOC: 2ND 12:20
PROVIDERS: Internal Medicine; Admitting Provider Family Medicine; PCP Family Medicine; Visit Provider Family Medicine
DX: R93.1 Abnormal findings on diagnostic imaging of heart and coronary circulation (principal); I25.10 Atherosclerotic heart disease of native coronary artery without angina pectoris; I25.84 Coronary atherosclerosis due to calcified coronary lesion; Z95.820 Peripheral vascular angioplasty status with implants and grafts; Z96.659 Presence of unspecified artificial knee joint; Z98.890 Other specified postprocedural states; Z79.899 Other long term (current) drug therapy
CPT/HCPCS: 36415; 80048; 85025; 85347; 92928; 92978; 93458; 93976; 99152; 99153; C1725; C1760; C1769; C1876; C9600; G0378; J1644; Q9967

== ENCOUNTER 2023-07-10 10:14 | Outpatient (CLI) | payer MEDICARE, SELFPAY ==
[2023-07-10 10:41] LABS: Hematocrit 42.3 % (42.0-52.0); Hemoglobin 14.3 g/dL (14.1-18.0)
[2023-07-10 11:34] LABS: Anion Gap 9.9 mEq/L (5-15); Blood Urea Nitrogen 18 mg/dl (9-20); Calcium 9.6 mg/dl (8.4-10.2); Carbon Dioxide 28 mmol/L (22.0-30.0); Chloride 106 mmol/L (98-107); Estimated Glomerular Filt Rate 59 ml/min (>60); GFR (African American) 72 ML/MIN (>60); Glucose 120 mg/dl (74-100); Potassium 3.9 mmoL/L (3.5-5.1); Sodium 140 mmol/L (136-145)
[2023-07-10 11:35] LABS: Alanine Aminotransferase 22 U/L (12-78); Albumin Level 4.1 g/dl (3.5-5.0); Alkaline Phosphatase 117 U/L (38-126); Aspartate Amino Transferase 27 U/L (17-59); Bilirubin,Indirect 0.6 mg/dL (0.0-0.9); Bilirubin,Total 0.6 mg/dl (0.2-1.3); Bilirubin,Unconjugated 0.6 mg/dL (0.0-1.1); Chol/HDL Ratio 3.6 (1-3.5); Cholesterol 138 mg/dl (140-200); HDL Cholesterol 38 mg/dl (40-60); Total Protein,Serum 6.7 g/dl (6.3-8.2); Triglycerides 111 mg/dl (30-150); VLDL Cholesterol 22 mg/dL (0-40)
[2023-07-10 11:46] LABS: Direct LDL Cholesterol 73.58 mg/dL (100-129)
== END 2023-07-10 23:59 ==
LOC: LAB 10:15
PROVIDERS: Internal Medicine; PCP Family Medicine; Visit Provider Physician Assistant
DX: E78.5 Hyperlipidemia, unspecified (principal); I25.10 Atherosclerotic heart disease of native coronary artery without angina pectoris; Z95.820 Peripheral vascular angioplasty status with implants and grafts
CPT/HCPCS: 36415; 80048; 80061; 80076; 85014; 85018

== ENCOUNTER 2024-12-03 11:47 | Outpatient (CLI) | payer OTHER, MEDICARE, SELFPAY ==
--- OUTSIDE RECORDS SUMMARY | 2023-06-08 10:15 | XMS_ITS ---
Author Organization [facility] Address [address] [facility] [address] [place] [id number] Care Team Providers Care Screen Printing Paster Name Role Phone Leonel Petersen Primary Care Provider [phone] Allergies No Known Allergies REASON FOR VISIT f/u [facility] D/C heart cath Medications Medication SIG (Take, Route, Frequency, Duration) Notes Start Date End Date Status Atorvastatin Calcium 40 MG 1 tablet Oral ly Once a day Active Aspirin 81 81 MG 1 tablet Orally Once a day Active Prasugrel HCl 10 MG as directed Orally Active amLODIPine Besylate 10 MG 1 tablet Orall y Once a day Active Problems Problem Type SNOMED Code ICD Code Onset Dates Problem Status W/U Status Risk Notes Problem Atherosclerotic heart disease of [place] coronary artery without angina pectoris (I25.10) Active confirmed Vital Signs Weight 203.2 lbs 06/08/2023 Blood pressure systolic 110 mm Hg 06/08/19 24 Blood pressure diastolic 62 mm Hg 024 Heart Rate 85 /min 06/08/2023 Height 68 in 06/08/2023 BMI 30.89 kg/m2 06/08/2023 Encounters Encounter Location Date Provider Diagnosis [facility] [address] [facility] [address] [place] [id number] 06/08/2023 Leonel Petersen Atherosclerotic hear t disease of [place] coronary artery without angina pectoris I25.10 Assessments Encounter Date Diagnosis (ICD Code) Assessment Notes Treatment Notes Treatment Clinical Notes Section Notes 06/08/2023 Atherosclerotic heart disease of [place] coronary artery without angina pectoris (ICD-10 - I25.10) Plan Of Treatment Medication Medication Name Sig Start Date Stop Date Notes Atorvastatin Calcium 40 MG 1 tablet Orally Once a day Aspirin 81 81 MG 1 tablet Orally Once a day Prasugrel HCl 10 MG as directed Orally amLODIPine Besylate 10 MG 1 tablet Orally Once a day Next Appt Details Follow Up: 3 Months for labs , Reason: Progress Notes * KISHA MERCER HDOB:1950 (74 yo M)Acc No.[id number]:06/08/2023 Progress Notes Patient: KISHA HAYNES Provider: Leonel Petersen M.D. :1950 A ge:73 Y S ex:Male Date:06/08/2023 Address:[address] [place] [address] Jean-Claude BARAJAS [id number] Subjective: * Chief Complaints: * 1 . f/u [facility] D/C heart cath. * HPI: C ardiology: Derrick has been following with cardiology recently and had an abnormal coronary CTA which prompted a a heart cath. He was found to have multiple blockages, most significant in the LAD requiring 5 stents. He was also found to have an occluded right coronary artery which was nondominant. Denies : Chest Pain. D enies : Short of Breath. D enies : Palpitations. D enies : Leg Edema. * ROS: D ERMATOLOGY: no R tram. n o H kev. G ASTROENTEROLOGY: no V omiting. n o D iarrhea. U ROLOGY: no D ifficulty urinating. n o B lood in urine. * Medical History: C ervical and lumbar disk disease, ASCVD. * Surgical History: l umbar disc x 2 1986, 1987, right rotator cuff sugery , cervical discectomy , left inguinal hernia , Heart Cath - Dr. Workman - Stents x 5 to LAD 06/02/2023. * Hospitalization/Major Diagno stic Procedure: H ER-fluid behind ears 06/2016, [facility] ER-left sided back pain 03/27/19. * Family History: F ather: 70 yrs, emphysema. M other: 44 yrs, unknown cancer. 7 brother(s) , 2 sister(s) . 1 son(s) , 3 daughter(s) . . * Social History: C URRENT TOBACCO USE: No . C affeine: yes, frequency:. Home smoke detector use: yes. 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 Alcohol: No. * Medications: T aking Aspirin 81 81 MG Tablet Chewable 1 tablet Orally Once a day , Taking Atorvastatin Calcium 40 MG Tablet 1 tablet Orally Once a day , Taking amLODIPine Besylate 10 MG Tablet 1 tablet Orally Once a day , Taking Prasugrel HCl 10 MG Tablet as directed Orally , Discontinued Medrol 4 MG Tablet Therapy Pack as directed , Discontinued Cyclobenzaprine HCl 10 MG Tablet 1 tab(s) orally 3 times a day , Medication List reviewed and reconciled with the patient * Allergies: N .K.D.A. Objective: * Vitals: W t:203.2, Temp:97.3, BP:110/62, HR:85, Nurse:LISA, Ht: 68, BMI:30.89. * Examination: C ardiology: General Appearance: NAD. ciaran C arotid upstroke:?normal, no bruits. H eart sounds: R RR, normal S1, S2. M urmur, click , gallop:?none. E xtremities: n o leg edema. Assessment: * Assessment: 1. A therosclerotic heart disease of [place] coronary artery without angina pectoris - I25.10 (Primary) Plan: * Treatment: 2. O thers Continue amLODIPine Besylate Tablet, 10 MG, 1 tablet, Orally, Once a day. * Follow Up: 3 Months for labs * Images: Billing Information: * Visit Code: 37901 Office Visit, Est Pt., Level 3. * Procedure Codes: * Electronic signature of Leonel Petersen MD on 12/03/2024 at 11:52 AM EDT Sign off status: Pending * Provider: Leonel Petersen M.D. Date: 0 06/08/2023 Generated for Carlos vyas/Lana/Francesco on: 0 12/03/2024 11:52 AM EDT History and Physical Notes * HPI (History of Present Illness) Category Sub-Category Detail Notes Category Not es Cardiology Short of Breath Chest Pain Palpitations Leg Edema Examination Category Sub-Category Detail Notes Category Not es Cardiology Heart sounds: RRR, normal S1, S2 Carotid upstroke: normal, no bruits Extremities: no leg edema Murmur, click , gallop: none General Appearance: pleasant, NAD
--- OUTSIDE RECORDS SUMMARY | 2023-09-07 09:30 | XMS_ITS ---
Author Organization [facility] Address [address] [facility] [address] [place] [id number] Care Team Providers Care Closed Circuit Screen Watcher Name Role Phone Leonel Petersen Primary Care Provider Allergies No Known Allergies REASON FOR VISIT checkup, Needs labs with PSA, colon cancer screening, & Prevnar vaccine Medications Medication SIG (Take, Route, Frequency, Duration) Notes Start Date End Date Status Prasugrel HCl 10 MG as directed Orally Active Aspirin 81 81 MG 1 tablet Orally Once a day Active Atorvastatin Calcium 40 MG 1 tablet Orally Once a day Not-Taking amLODIPine Besylate 10 MG 1 tablet Orall y Once a day Active Problems Problem Type SNOMED Code ICD Code Onset Dates Problem Status W/U Status Risk Notes Problem HBP (high blood pressure) (I10) Active confirmed Vital Signs Weight 202.4 lbs 09/07/2023 Blood pressure systolic 114 mm Hg 09/07/19 24 Blood pressure diastolic 58 mm Hg 024 Heart Rate 69 /min 09/07/2023 Height 68 in 09/07/2023 BMI 30.77 kg/m2 09/07/2023 Encounters Encounter Location Date Provider Diagnosis [facility] [address] [facility] [address] [place] [id number] 09/07/2023 Leonel Petersen Atherosclerotic hear t disease of [place] coronary artery without angina pectoris I25.10 and HBP (high blood pressure) I10 Assessments Encounter Date Diagnosis (ICD Code) Assessment Notes Treatment Notes Treatment Clinical Notes Section Notes 09/07/2023 Atherosclerotic heart disease of [place] coronary artery without angina pectoris (ICD-10 - I25.10) 09/07/2023 HBP (high blood pressure) (ICD-10 - I10) Plan Of Treatment Medication Medication Name Sig Start Date Stop Date Notes Prasugrel HCl 10 MG as directed Orally Aspirin 81 81 MG 1 tablet Orally Once a day amLODIPine Besylate 10 MG 1 tablet Orally Once a day Next Appt Details Follow Up: 6 Months, Reason: Progress Notes * BAM KISHA HDOB:1950 (74 yo M)Acc No.[id number]:09/07/2023 Progress Notes Patient: KISHA HAYNES Provider: Leonel Petersen M.D. :1950 A ge:73 Y S ex:Male Date:09/07/2023 Address:[address] [place], [place] [id number] Subjective: * Chief Complaints: * 1 . Checkup. 2. Needs labs with PSA, colon cancer screening, & Prevnar vaccine. * HPI: C ardiology: Maged returns for follow-up on his hypertension. He continues to follow with cardiology regarding his heart disease and recent stents. He developed side effects from his atorvastatin; primarily with leg cramps. He had blood work per his [employer] a couple weeks ago and states his cholesterol was low . I do not have a copy of this report. At any rate the [facility] discontinued the atorvastatin and is planning to start a new medication in the next 2 weeks. He generally feels well. No complaints of exertional chest pain or shortness of breath. No swelling. Blood pressure has been normal. * ROS: D ERMATOLOGY: no R tram. [...] stic Procedure: H ER-fluid behind ears 06/2016, [facility] ER-left sided back pain 03/27/19. * Family History: F ather: 70 yrs, emphysema. M other: 44 yrs, unknown cancer. 7 brother(s) , 2 sister(s) . 1 son(s) , 3 daughter(s) . . * Social History: C URRENT TOBACCO USE: No . C affeine: yes, frequency:. Home smoke detector use: yes. 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 Alcohol: No. * Medications: T aking amLODIPine Besylate 10 MG Tablet 1 tablet Orally Once a day , Taking Prasugrel HCl 10 MG Tablet as directed Orally , Taking Aspirin 81 81 MG Tablet Chewable 1 tablet Orally Once a day , Not-Taking Atorvastatin Calcium 40 MG Tablet 1 tablet Orally Once a day , Medication List reviewed and reconciled with the patient * Allergies: N .K.D.A. Objective: * Vitals: W t:202.4, Temp:97.4, BP:114/58, HR:69, O2 Sat:98% on RA, Nurse:LISA, Ht: 68, BMI:30.77. * Examination: C ardiology: General Appearance: p leasant, NAD. C arotid upstroke:?normal, no bruits. H eart sounds: R RR, normal S1, S2. M urmur, click , gallop:?none. E xtremities: n o leg edema. Assessment: * Assessment: 1. A therosclerotic heart disease of [place] coronary artery without angina pectoris - I25.10 (Primary) 2 . H BP (high blood pressure) - I10 Plan: * Treatment: 2. H BP (high blood pressure) Continue amLODIPine Besylate Tablet, 10 MG, 1 tablet, Orally, Once a day. * Procedure Codes: 9 4760 PULSE OX, G2211 Complex e/m visit add on * Follow Up: 6 Months * Images: Billing Information: * Visit Code: 68749 Office Visit, Est Pt., Level 3. * Procedure Codes: 67817 PULSE OX. G2211 Complex e/m visit add on. * Electronic signature of Leonel Petersen MD on 12/03/2024 at 11:52 AM EDT Sign off status: Pending * Provider: Leonel Petersen M.D. Date: 09/07/2023 Generated for Carlos vyas/Lana/eTransmitting on: 0 12/03/2024 11:52 AM EDT History and Physical Notes * HPI (History of Present Illness) Category Sub-Category Detail Notes Category Not es Cardiology He generally fe els well. No complaints of exertional chest pain or shortness of breath. No swelling. Blood pressure has been normal. Examination Category Sub-Category Detail Notes Category Not es Cardiology Heart sounds: RRR, normal S1, S2 Carotid upstroke: normal, no bruits Extremities: no leg edema Murmur, click , gallop: none General Appearance: pleasant, NAD
--- OUTSIDE RECORDS SUMMARY | 2024-12-03 11:52 | XMS_ITS | Encounter Summary ---
Author Organization [employer] ([place], [place], [place], [place]) Address [address] [place] [address] Care Team Providers Care Medicine Technologist Name Role Phone Unavailable Primary Care Provider Unavailabl e Encounter Details Date Type Department Care Team (Late st Contact Info) Description 07/09/2019 Transcribed Document [facility] [place] [facility] [address] ProviderDeborah MD [address] [place], [place] [phone] Social History Tobacco Use Types Packs/Day Years Used Date Smoking Tobacco: Never Assessed Sex and Gender Information Value Date Recorded Sex Assigned at Male 10/26/2021 4:50 PM CDT Legal Sex Male 4:50 PM CDT Gender Identity Male 10/26/2021 4:50 PM CDT Sexual Orientation Not on file documented as of this encounter Miscellaneous Notes * Cerner Conversion Note - Historical ProviderMD - 07/09/2019 2:04 PM CDT Initial Discharge Planning Entered On: 07/09/2019 14:07 EDT Performed On: 07/09/2019 14:04 EDT by DAVID AVINA RN-Manager Lvn Initial Assessment I Previously Documented Living Environment : No qualifying data available. Living Situation : Home Patient Lives With : Spouse Is the Patient a Caregiver at Home? : No Emergency Contact #1 : Meghan Kuhn Emergency Contact #1 Emergency Contact #1 Relationship : spouse Emergency Contact #2 : .na Emergency Contact #2 Phone Number : na Emergency Contact #2 Relationship : .na Enter Doctors Name : Michelet Petersen Does Patient have PCP Listed? : Yes Legal Guardian : No Is Guardianship Needed : No DAVID AVINA RN-Manager Lvn - 07/09/2019 14:04 EDT Initial Assessment II Sensory and Motor Deficits : None Current Home Treatments and Equipment : None DAVID AVINA RN-Manager Lvn - 07/09/2019 14:04 EDT Discharge Needs I Anticipated Discharge Date : 07/09/2019 EDT Anticipated Discharge To, CM : Home with family care Current Home Treatment/Equipment : Current Home Treatment/Equipment No qualifying data available. Post Acute/Home Treatments : None Documentation Status Complete : Yes DAVID AVINA RN-Manager Lvn - 07/09/2019 14:04 EDT Discharge Needs II Professional Skilled Services : Professional Skilled Services No qualifying data available. Needs Assistance with Transportation : No DAVID AVINA RN-Manager Lvn - 07/09/2019 14:04 EDT Narrative Note Narrative Note : Received from PACU s/p robot assisted laparoscopic partial nephrectom. Met with Pt on IDT rounds. Role of CM explained. Pt states that he is ADL independent. Plans are to return home with his when discharged. No needs anticipated/verbalized at this time. RRS is low @ 25. CM will follow. DAVID AVNIA RN-Manager Lvn - 07/09/2019 14:04 EDT Electronically signed by Tanisha Cotto Conversion Electrophysiology Technologist Cerner at 08/16/2022 8:55 AM CDT documented in this encounter Plan of Treatment Not on file documented as of this encounter Visit Diagnoses Not on filedocumented in this encounter
--- OUTSIDE RECORDS SUMMARY | 2024-12-03 11:52 | XMS_ITS | Encounter Summary ---
Author Organization [email or web address] ([place], [place], [place], [place]) Address [address] [place] [address] Care Team Providers Care Supervisor Cd Area Name Role Phone Unavailable Primary Care Provider Unavailabl e Encounter Details Date Type Department Care Team (Late st Contact Info) Description 07/09/2019 Transcribed Document [facility] [place] [address] [place] [address] ProviderDeborah MD [address] [place], [place] [phone] Social History Tobacco Use Types Packs/Day Years Used Date Smoking Tobacco: Never Assessed Sex and Gender Information Value Date Recorded Sex Assigned at Male 10/26/2021 4:50 PM CDT Legal Sex Male 4:50 PM CDT Gender Identity Male 10/26/2021 4:50 PM CDT Sexual Orientation Not on file documented as of this encounter Miscellaneous Notes * Cerner Conversion Note - Historical ProviderMD - 07/09/2019 1:01 PM CDT Stroke/Warfarin Instructions Entered On: 07/09/2019 13:01 EDT Performed On: 07/09/2019 13:01 EDT by Yola Bowman Rn Stroke/Warfarin Instructions Stroke/TIA Discharge Ins : N/A Warfarin Discharge Ins : N/A Yola Bowman Rn - 07/09/2019 13:01 EDT documented in this encounter Plan of Treatment Not on file documented as of this encounter Visit Diagnoses Not on filedocumented in this encounter
--- OUTSIDE RECORDS SUMMARY | 2024-12-03 11:52 | XMS_ITS | Encounter Summary ---
Author Organization [employer] ([place], [place], [place], [place]) Address [address] [place] [address] Care Team Providers Care Head Filter Press Tender Name Role Phone Unavailable Primary Care Provider Unavailabl e Encounter Details Date Type Department Care Team (Late st Contact Info) Description 07/09/2019 Transcribed Document [facility] [place] [address] ProviderDeborah MD [address] [place] [address] Social History Tobacco Use Types Packs/Day Years Used Date Smoking Tobacco: Never Assessed Sex and Gender Information Value Date Recorded Sex Assigned at Male 10/26/2021 4:50 PM CDT Legal Sex Male 4:50 PM CDT Gender Identity Male 10/26/2021 4:50 PM CDT Sexual Orientation Not on file documented as of this encounter Miscellaneous Notes * Cerner Conversion Note - Historical ProviderMD - 07/09/2019 3:01 PM CDT Nursing Discharge Summary Entered On: 07/09/2019 15:03 EDT Performed On: 07/09/2019 15:01 EDT by Yola Bowman Rn Discharge Documentation Discharge Date/Time : 07/09/2019 15:01 EDT Patient Disposition, General : Discharge Discharge To : Home with ambulatory/outpatient follow-up Mode Of Departure, General Discharge : Private vehicle, Wheelchair Accompanied By, Discharge : Spouse IV Discontinued : Yes Personal Belongings With Patient : Yes Pt's Own Supply of Medications Returned : No patient supply of medications to return Prescriptions Given to Patient : No Medications Given to Patient : No Discharge Instructions Reviewed With, Opportunity For Questions Given : Patient, Spouse Patient Education Completed : Yes Teaching Method : Explanation, Printed materials Teaching Evaluation : Verbalizes understanding Yola Bowman Rn - 07/09/2019 15:01 EDT Electronically signed by Kirti [facility] Conversion Packaging Materials Inspector Cerner at 08/16/2022 8:45 AM CDT documented in this encounter Plan of Treatment Not on file documented as of this encounter Visit Diagnoses Not on filedocumented in this encounter
--- OUTSIDE RECORDS SUMMARY | 2024-12-03 11:52 | XMS_ITS | Encounter Summary ---
Author Organization [employer] ([place], [place], [place], [place]) Address [address] [place] [address] Care Team Providers Care Instructor Bus Trolley And Taxi Name Role Phone Unavailable Primary Care Provider Unavailabl e Encounter Details Date Type Department Care Team (Late st Contact Info) Description 07/09/2019 Transcribed Document [facility] [place] Family Medicine [address] [place] [address] ProviderDeborah MD [address] [place] [address] Social History Tobacco Use Types Packs/Day Years Used Date Smoking Tobacco: Never Assessed Sex and Gender Information Value Date Recorded Sex Assigned at Male 10/26/2021 4:50 PM CDT Legal Sex Male 4:50 PM CDT Gender Identity Male 10/26/2021 4:50 PM CDT Sexual Orientation Not on file documented as of this encounter Miscellaneous Notes * Cerner Conversion Note - Deborah ProviderMD - 07/09/2019 2:13 PM CDT [facility] [place] [address] KISHA KUHN :1950 Visit Time:07/08/2019 Your Visit Summary Your Care Team Admitting Physician - AXEL ALLRED MD-URO Attending Physician - AXEL ALLRED MD-URO Primary Care Physician - JASS CARRASCO (REF)MD Referring Physician - JASS CARRASCO (REF), MD JOHNSON, NOT LISTED AXEL ALLRED MD-URO Your Diagnosis Other specified disorders of kidney and ureter, Other specified disorders of kidney and ureter What to do next Instructions From Your Care Team Discharge Follow Up Instructions: Diet: Discharge Diet: Regular diet as tolerated Follow-Up Appointments Follow Up with AXEL ALLRED MD-URO When 07/30/2019 04:15 PM EDT Where: [address] [id number]- Medications Take your medications faithfully. Do NOT skip medication. Do NOT stop taking medications without the direction of a physician. Carry a list of your medications with you at all times, and take this medication list with you to your first follow up visit. Report any side effects. Avoid herbal remedies unless discussed with your physician. As part of your treatment plan, your physician may have prescribed a limited course of a controlled substance. This medication may be given to help people with moderate or severe pain or for other medical conditions, but there are risks involved with treatment. Common side effects may include nausea, constipation, drowsiness, sweating, itching, dry mouth, and rash. More serious side effects may include cognitive and motor impairment, like problems with thinking, concentrating, alertness, and movement (e.g. slowed reflexes), and driving and operating heavy machinery can be dangerous. It is important for you to talk to your physician if you have these side effects or questions. These controlled substances can produce physical dependence and be habit-forming if taken for an extended period of time, which means that the body has gotten used to them and may experience withdrawal symptoms if they are abruptly stopped. Withdrawal symptoms can include runny nose, sweating, goose bumps, diarrhea, abdominal cramping, rapid heartbeat, difficulty sleeping, and nervousness. Please dispose of unused and medications per your retail pharmacy guidance. Allergies No Known Medication Allergies Immunizations This Visit No Immunizations Found Education Materials Laparoscopic Nephrectomy, Care After Refer to this sheet in the next few weeks. These instructions provide you with information on caring for yourself after your procedure. Your health care provider may also give you more specific instructions. Your treatment has been planned according to current medical practices, but problems sometimes occur. Call your health care provider if you have any problems or questions after your procedure. What can I expect after the procedure? After the procedure, it is common to have: ??? Pain. ??? Soreness and numbness in your incision areas. Follow these instructions at home: Activity ??? Return to your normal activities as told by your health care provider. Ask what activities are safe for you. ??? Do not lift anything that is heavier than 10 lb (4.5 kg) until your health care provider approves. Bathing ??? Do not take baths, swim, or use a hot tub until your health care provider approves. Ask your health care provider if you can take showers. You may only be allowed to take sponge baths for bathing. ??? Keep the bandage (dressing) dry until your health care provider says it can be removed. Incision care ??? Follow instructions from your health care provider about how to take care of your incisions. Make sure you: ? Wash your hands with soap and water before you change your dressing. If soap and water are not available, use hand shop tailor. ? Change your dressing as told by your health care provider. ? Leave stitches (sutures), skin glue, or adhesive strips in place. These skin closures may need to be in place for 2 weeks or longer. If adhesive strip edges start to loosen and curl up, you may trim the loose edges. Do not remove adhesive strips completely unless your health care provider tells you to do that. ??? Check your incision area every day for signs of infection. Watch for: ? Redness, swelling, or pain. ? Fluid, blood, or pus. General instructions ??? Take medicines only as directed by your health care provider. ??? Do not drive or operate heavy machinery while taking prescription pain medicine. ??? Keep all follow-up visits as told by your health care provider. This is important. ??? Drink enough fluid to keep your urine clear or pale yellow. ??? If you have a drain, follow instructions from your health care provider about how to care for it. Contact a health care provider if: ??? Your pain is worse. ??? You have redness, swelling, or pain at your incision site. ??? You have a bad smell coming from the wound or dressing. Get help right away if: ??? You have a rash. ??? You have trouble breathing or feel short of breath. ??? You feel light-headed or dizzy. ??? You have blood in your urine. ??? You have fluid, blood, or pus coming from your incision. ??? You have a fever. This information is not intended to replace advice given to you by your health care provider. Make sure you discuss any questions you have with your health care provider. Document Released: 01/06/2016 Document Revised: 05/31/2017 Document Reviewed: 09/09/2015 [employer] Interactive Patient Education ?? [address] [place] [employer]. Emergency Awareness and Preventative Care STROKE is an EMERGENCY Every Minute Counts Act FAST and Check for these signs: FACE Does the face look uneven? ARM Does one arm drift down? SPEECH Does their speech sound strange? TIME Call at any sign of stroke Stroke Risk Factors Atrial Fibrillation (irregular heartbeat) Diabetes Family history of stroke Heart Disease Heavy alcohol use High Blood Pressure High Cholesterol Physical inactivity and obesity Smoking Cigarette Smoking The facts are clear, cigarette smoking will shorten your life. Smoking can cause many illnesses along the way. As a healthcare provider, we recommend that you stop smoking. Assistance with quitting is available by contacting 0-925-GYWK-NOW. This is a free resource providing counseling, support, and referral. Or you may contact your personal physician. National Suicide Prevention Lifeline: The National Suicide Prevention Lifeline is a national network of local crisis centers that provides free and confidential emotional support to people in suicidal crisis or emotional distress 24 hours a day, 7 days a week. Don't Wait! Stop a Heart Attack Before it Starts What is a heart attack? A heart attack is damage or to a part of the heart from severely decreased or lack of blood flow to the heart. Over time, arteries can become narrow from the buildup of fat and cholesterol, which is called plaque. The plaque can rupture causing a blood clot to form. When the blood clot forms, the artery can become severely narrowed or completely blocked, causing a heart attack. Heart attack is the leading cause of in the [place]. 85% of muscle damage occurs within the first 2 hours. Delay in the recognition of heart attack symptoms increases the chances of . Know the early symptoms of a heart attack: Nausea Feeling of fullness in chest Jaw Pain Pain that travels down one or both arms Fatigue/being tired Anxiety Back Pain Chest pressure, squeezing, or discomfort Shortness of breath Sweating, or a cold sweat Feeling of impending doom There are unusual signs of a heart attack, too! Women, the elderly, and diabetics may present with atypical symptoms: Fainting/dizziness Weakness Confusion Risk Factors for a Heart Attack Some heart disease risk factors, such as age and family history, cannot be changed. Others, like smoking and lack of exercise, can be changed. Smoking High Cholesterol High Blood Pressure Family History Obesity Age Gender (Males are at higher risk) Lack of Exercise Diabetes Diet Stress Excessive Alcohol Intake If you or someone you know is experiencing the signs and symptoms of a heart attack, DON???T DELAY. Call immediately and seek help. If someone collapses, perform CPR! Do not attempt to drive if you are having symptoms of heart attack. Hands-Only CPR Why Hands-Only CPR? Hands-Only CPR has been shown to be as effective as conventional CPR for cardiac arrests that occur outside of a hospital. Survival depends on immediately receiving CPR from someone nearby. How do you perform Hands-Only CPR? There are two easy steps: Call if you see a teen or adult collapse Push hard and fast in the center of the chest at a beat of 100 beats per minute. Save a life! 4 WAYS TO GET AHEAD OF SEPSIS SEPSIS is a MEDICAL EMERGENCY. Time matters! Infections put you and your family at risk for a life-threatening condition called sepsis. Sepsis is the body's extreme response to an infection. It is life-threatening, and without timely treatment, sepsis can rapidly lead to tissue damage, organ failure, and . Sepsis happens when an infection you already have-in your skin, lungs, urinary tract or somewhere else-triggers a chain reaction throughout your body. 1 PREVENT INFECTIONS Take good care of chronic conditions. Talk to your doctor about getting the recommended vaccines. 2 PRACTICE GOOD HYGIENE Wash your hands frequently. Keep cuts or open sores clean and covered until they are healed. 3 KNOW THE SYMPTOMS Confusion or disorientation Shortness of breath High heart rate Fever, shivering, or feeling very cold Extreme pain or discomfort Clammy or sweaty skin 4 ACT FAST Get medical care IMMEDIATELY if you suspect sepsis or if you have an infection that is not getting better or is getting worse. To learn more about sepsis and how to prevent infections, visit www.cdc.gov/sepsis. Test Results Laboratory or Other Results This Visit (last charted value for your 07/08/2019 visit) Hematology 07/08/2019 7:29 AM Hemoglobin POC: 15.6 Gram/dL -- Normal range between ( 12.0 and 17.0 ) Hematocrit POC: 46.0 % -- Normal range between ( 38.0 and 51.0 ) Blood Bank 07/08/2019 7:23 AM ABO/Rh Repeat: O POS 07/08/2019 7:22 AM ABO/Rh (ECHO): O POS Antibody Screen: Negative ABSC Patient Name:KISHA KUHN I have received and understand this information and was given the opportunity to ask questions. Patient/Assistant Commissioner Name: Patient/Assistant Commissioner Signature: Relationship to Patient: Clinician/Hospital Assistant Commissioner Signature: Date: documented in this encounter Plan of Treatment Not on file documented as of this encounter Visit Diagnoses Not on filedocumented in this encounter
--- OUTSIDE RECORDS SUMMARY | 2024-12-03 11:53 | XMS_ITS | Encounter Summary ---
Author Organization [employer] ([place], [place], [place], [place]) Address [address] [place] [address] Care Team Providers Care Italian Teacher Name Role Phone Unavailable Primary Care Provider Unavailabl e Encounter Details Date Type Department Care Team (Late st Contact Info) Description 07/09/2019 Transcribed Document [facility] [place] [address] [place] [address] ProviderDeborah MD [address] [place] [address] Social History Tobacco Use Types [...] Conversion Note - Historical ProviderMD - 07/09/2019 5:00 AM CDT Chart Check - Review Order Profile Entered On: 07/09/2019 4:09 EDT Performed On: 07/09/2019 5:00 EDT by Henny Pruitt RN Chart Check Powerplans Initiated/Discontinued as Appropriate : Yes All Active Orders Reviewed : Yes Henny Pruitt RN - 07/09/2019 4:09 EDT documented in this encounter Plan of Treatment Not on file documented as of this encounter Visit Diagnoses Not on filedocumented in this encounter
--- OUTSIDE RECORDS SUMMARY | 2024-12-03 11:53 | XMS_ITS | Encounter Summary ---
Author Organization [employer] ([place], [place], [place], [place]) Address [address] [place] [address] Care Team Providers Care Cheese Sprayer Name Role Phone Unavailable Primary Care Provider Unavailabl e Encounter Details Date Type Department Care Team (Late st Contact Info) Description 07/08/2019 Transcribed Document [facility] [place] Family Medicine [facility] [place] [address] ProviderDeborah MD [address] [place] [address] Social History Tobacco Use Types Packs/Day Years Used Date Smoking Tobacco: Never Assessed Sex and Gender Information Value Date Recorded Sex Assigned at Male 10/26/2021 4:50 PM CDT Legal Sex Male 4:50 PM CDT Gender Identity Male 10/26/2021 4:50 PM CDT Sexual Orientation Not on file documented as of this encounter Miscellaneous Notes * Cerner Conversion Note - Historical ProviderMD - 07/08/2019 8:02 AM CDT Procedural Documentation Entered On: 07/08/2019 8:04 EDT Performed On: 07/08/2019 8:02 EDT by RITESH SMITH RN Procedure Documentation Procedure to be Performed : bilateral taps block Time Out Pause Time : 07/08/2019 7:50 EDT All Activity Suspended : Yes Team Verbally Confirms Information : Correct patient identity, Correct side and site are marked, Consent form is present and accurate, Agreement on the procedure to be done, Correct patient position, Relevant images/results properly labeled/appropriately displayed, Confirm the skin prep has dried Procedure Performed : bilateral taps block Proper Use of Sterile Apparel per Policy : Yes Procedure Case Attendee : TOMAS RAMIREZ MD-ANS Procedure Case Attendee Role : Anesthesiologist Procedure Case Attendee Role 2 : flatware maker Case Attendee Role 3 : flatware maker Case Attendee 3 : RITESH SMITH V., RN RITESH SMITH RN - 07/08/2019 8:02 EDT Diego Level I Post Anesthesia Assessment Diego I Activity Status : Moves 4 extremities voluntarily or on command Diego l Respiratory Component : Able to deep breathe and cough freely Diego I Circulation Component : BP 20% of preanesthetic level Diego I Consciousness : Arouses on calling Diego l Oxygen Saturation : Needs oxygen to maintain > 92% Diego l Score : 8 RITESH SMITH RN - 07/08/2019 8:02 EDT Vital Measurements Pulse Method : Pulse Oximetry Peripheral Pulse Rate : 75 bpm Pulse Rhythm : Regular Respiratory Rate : 18 Breaths/Min Blood Pressure Location : Arm, right upper Blood Pressure Source : Non-Invasive BP Device Blood Pressure Position : Supine Systolic Blood Pressure : 140 mmHg Diastolic Blood Pressure : 77 mmHg RITESH SMITH RN - 07/08/2019 8:02 EDT Oxygen Therapy Oxygen Titrated : No Oxygen Therapy Mode : Nasal cannula Oxygen Flow Rate : 2 Liter/Min Pulse Oximeter Probe Site : Hand, right O2 Saturation Monitoring Frequency : Continuous Oxygen Saturation : 96 % RITESH SMITH RN - 07/08/2019 8:02 EDT documented in this encounter Plan of Treatment Not on file documented as of this encounter Visit Diagnoses Not on filedocumented in this encounter
--- OUTSIDE RECORDS SUMMARY | 2024-12-03 11:53 | XMS_ITS | Encounter Summary ---
Author Organization [employer] ([place], [place], [place], [place]) Address [address] [place] [address] Care Team Providers Care Certified Nutritionist Name Role Phone Unavailable Primary Care Provider Unavailabl e Encounter Details Date Type Department Care Team (Late st Contact Info) Description 07/08/2019 Transcribed Document [facility] [place] Family [place] [facility] [place] [address] ProviderDeborah MD [address] [place] [address] Social History Tobacco Use Types [...] Conversion Note - Historical ProviderMD - 07/08/2019 4:21 PM CDT DATE OF PROCEDURE: 07/08/2019 SURGEON: Valentino Orellana MD PREOPERATIVE DIAGNOSIS: Right renal mass. POSTOPERATIVE DIAGNOSIS: Right renal mass. PROCEDURE PERFORMED: Right robotic-assisted laparoscopic partial nephrectomy. ANESTHESIA: General. COMPLICATIONS: None. OPERATIVE INDICATIONS: This gentleman was found to have an exophytic and suspicious enhancing, but very small lesion protruding from the lower pole of the right kidney on CT scan imaging. The lesion was felt to be consistent with possible renal cell carcinoma. Other treatment options had been discussed in detail. This is felt to be a very suitable lesion for partial nephrectomy with removal of the lesion only and preserving the right remainder of the, otherwise, normal appearing right kidney. The left kidney appears normal as well preoperatively. OPERATIVE FINDINGS: A very small solid lesion was identified in a pedunculated fashion as expected off the posterior lower pole of the kidney. During the course of the exposure and defatting of the lower pole of the kidney, the tumor was actually amputated at its small stalk connection point. The base of this connection point was excised with tissue submitted for frozen section analysis, which returned as normal renal tissue. The solid tumor was then removed in conjunction with its surrounding perinephric adipose tissue and submitted for permanent section analysis. Blood loss was minimal. The renal hilum did not have to be clamped. DESCRIPTION OF PROCEDURE: The patient was brought to the operating room where general anesthesia was induced. He was placed in the modified right flank position with the right shoulder and hip elevated at approximately 45 degrees, and rolls were placed behind his back and hips. Extremities and all pressure points were padded and protected appropriately. The table was flexed partially at the waist level. A Wang catheter had been placed to straight drainage. The abdomen was prepped and draped sterilely. Initial entrance into the peritoneal cavity was carried out with a Veress needle approach through the planned camera port incision site just to the right of the midline and superior to the umbilicus. Pneumo insufflation was achieved, after which a 5 mm optical view trocar was placed under direct vision into the peritoneal cavity. Remaining trocars were placed in a standard array for right partial nephrectomy with a 12 mm assistance port just to the left of the umbilicus. Prior to docking the robot, the table was tilted to the left and the robot was docked. Dissection ensued by dividing the white line of Toldt, and mobilizing the colon and kocherizing the duodenum. This ultimately exposed the entire anterior surface of the kidney. /[id number] Valentino Orellana MD CGLeonel/AQ / CGR / MODL /[id number] documented in this encounter Plan of Treatment Not on file documented as of this encounter Visit Diagnoses Not on filedocumented in this encounter
--- OUTSIDE RECORDS SUMMARY | 2024-12-03 11:53 | XMS_ITS | Encounter Summary ---
Author Organization [employer] ([place], [place], [place], [place]) Address [address] [place] [address] Care Team Providers Care Business Solutions Architect Name Role Phone Unavailable Primary Care Provider Unavailabl e Encounter Details Date Type Department Care Team (Late st Contact Info) Description 07/09/2019 Transcribed Document [facility] [place] [address] [place] [address] ProviderDeborah MD [address] [place] [address] Social History Tobacco Use Types [...] Conversion Note - Historical ProviderMD - 07/09/2019 12:18 PM CDT Patient: KISHA KUHN Age: 69 Years Sex: Male : 1950 Progress Note POD1 VSS and feels well - ambulatory many times Abd soft, NT Legs negative Stable post op\ Will d/c home once voiding, he will use acetaminophen for pain OV with me in 3 wks documented in this encounter Plan of Treatment Not on file documented as of this encounter Visit Diagnoses Not on filedocumented in this encounter
--- OUTSIDE RECORDS SUMMARY | 2024-12-03 11:53 | XMS_ITS | Patient Health Record ---
[facility] Address [address] [place] [id number] Care Team Providers Care Bench Assembler Battery Name Role Phone Leonel Petersen Primary Care Provider [phone] Allergies No Known Allergies Reason For Referral No Information Medications Medication SIG (Take, Route, Frequency, Duration) Notes Start Date End Date Status Prasugrel HCl 10 MG as directed Orally Active Aspirin 81 81 MG 1 tablet Orally Once a day Active Atorvastatin Calcium 40 MG 1 tablet Orally Once a day Not-Taking amLODIPine Besylate 10 MG 1 tablet Orall y Once a day Active Immunizations Vaccine Route Administration Date Status Comme nts COVID 19 Moderna Unknown 06/09/2020 Administered Problems Problem Type SNOMED Code ICD Code Onset Dates Problem Status W/U Status Risk Notes Problem Renal mass (263183739) Renal mass (N28.89) Active confirmed Problem Disorder of lumbar disc (166546378) Lumbar disc disease (M51.9) Active confirmed Problem Atherosclerotic heart disease of [place] coronary artery without angina pectoris (780390994568560) Atherosclerotic heart disease of [place] coronary artery without angina pectoris (I25.10) Active confirmed Problem Cervical disc disease (499713438) Cervical disc disease (M50.90) Active confirmed Problem HBP - High blood pressure (21470870) HBP (high blood pressure) (I10) Active confirmed Problem Osteoarthritis of knee (435463498) Primary osteoarthritis of left knee (M17.12) Active confirmed Problem S/P angioplasty with stent (Z95.820) Active confirmed Plan Of Treatment No Information Insurance Providers Payer Name Payer Address Payer Phone Subscriber Number Group Number Insured Name Patient Relationship to Insured Coverage Start Date Coverage End Date MEDICARE PART B [address] [address] [place] [id number] [phone] [id number] KISHA KUHN Self - patient is the insured Medications Administered Medication Instructions Date of Administration Dosage Notes Depo- Medrol 40 mg/ml 09/29/2016 1 mL Medical (General) History Medical History History ICD Code cervical and lumbar disk disease ASCVD Surgical History Surgery Date(Month/Year) lumbar disc x 2 1986, 1987 right rotator cuff sugery cervical discectomy left inguinal hernia Heart Cath - Dr. Workman - Stents x 5 t o LAD 06/02/2023 Hospitalization History Reason Date(Month/Year) [facility] ER-fluid behind ears 06/2016 [facility] ER-left sided back pain 03/27/19
--- OUTSIDE RECORDS SUMMARY | 2024-12-03 11:53 | XMS_ITS | Encounter Summary ---
Author Organization [employer] ([place], [place], [place], [place]) Address [address] [place] [address] Care Team Providers Care Art Critic Name Role Phone Unavailable Primary Care Provider Unavailabl e Encounter Details Date Type Department Care Team (Late st Contact Info) Description 07/09/2019 Transcribed Document [facility] [place] [facility] [place] [address] ProviderDeborah MD [address] [place] [address] Social History Tobacco Use Types [...] Conversion Note - Deborah ProviderMD - 07/09/2019 2:07 PM CDT Final Discharge Planning Entered On: 07/09/2019 14:08 EDT Performed On: 07/09/2019 14:07 EDT by DAVID AVINA RN-Typewriter Assembler Final Discharge Planning Discharge Arrangements : Patient Post-Acute Information Patient Name: KISHA KUHN Gender: Male : [birth year] Age: 69 Years No Post-Acute Placement(s) Listed No Post-Acute Service(s) Listed No [place] Referral(s) Listed Transportation Needs : Family/Friend Follow Up Appointment Scheduled : Yes Is Patient High/Moderate Readmission Risk? : No Patient/Family Notified of Plan : Yes Support Person/Pt Rep Notified of Plan : Yes Is Patient Ready for Discharge? : Yes Physician Notified Patient is Ready for Discharge? : Yes Discharge To Care Management : Home/Residential/Longterm or Self Care -01 DAVID AVINA RN-Typewriter Assembler - 07/09/2019 14:07 EDT Final Narrative Note Final Narrative Note : Discharged to home, agreeable. No needs verbalized. DAVID AVINA RN-Typewriter Assembler - 07/09/2019 14:07 EDT documented in this encounter Plan of Treatment Not on file documented as of this encounter Visit Diagnoses Not on filedocumented in this encounter
--- OUTSIDE RECORDS SUMMARY | 2024-12-03 11:53 | XMS_ITS | Clinical Summary ---
Author Organization [employer] ([place], [place], [place], [place]) Address [address] [place] [address] Care Team Providers Care Financial Services Professional Name Role Phone Unavailable Primary Care Provider Unavailabl e Social History Tobacco Use Types Packs/Day Years Used Date Smoking Tobacco: Never Assessed Sex and Gender Information Value Date Recorded Sex Assigned at Male 10/26/2021 4:50 PM CDT Legal Sex Male 4:50 PM CDT Gender Identity Male 10/26/2021 4:50 PM CDT Sexual Orientation Not on file Plan of Treatment Not on file
--- OUTSIDE RECORDS SUMMARY | 2024-12-03 11:53 | XMS_ITS | Encounter Summary ---
Author Organization [employer] ([place], [place], [place], [place]) Address [address] [place] [address] Care Team Providers Care Hand Sizer Name Role Phone Unavailable Primary Care Provider Unavailabl e Encounter Details Date Type Department Care Team (Late st Contact Info) Description 07/08/2019 Transcribed Document [facility] [place] [facility] [place] [address] ProviderDeborah MD [address] [place] [address] Social History Tobacco Use Types [...] Conversion Note - Historical ProviderMD - 07/08/2019 6:25 AM CDT Patient: KISHA KUHN Age: 69 years Sex: Male : 1950 Associated Diagnoses: None Author: GLENYS MARIANO APRN Chief Complaint R renal cyst Review of Systems ROS reviewed as documented in chart no change since last seen by surgeon Health Status Allergies: Allergic Reactions (Selected) No Known Medication Allergies, Allergies (1) Active Reaction No Known Medication Allergies None Documented Current medications: (Selected) Inpatient Medications Ordered Lactated Ringers Injection intravenous solution 1,000 mL: 20 mL/Hr, IntraVENous ceFAZolin: 2 Gram, 50 mL, 100 mL/Hr, IV Piggyback, 1-Time, No qualifying data available , Medications (2) Active Scheduled: (1) ceFAZolin/D5w 2 Gram 50 mL, IV Piggyback, 1-Time Continuous: (1) lactated ringers 1,000 mL 1,000 mL, IntraVENous, 20 mL/Hr PRN: (0) Problem list: All Problems Kidney nodule / SNOMED CT 947847428 / Confirmed GERD - Gastro-esophageal reflux disease / SNOMED CT 4490193129 / Confirmed Back pain / SNOMED CT 252558750 / Confirmed At risk for sleep apnea / IMO [id number] / Confirmed, Active Problems (4) At risk for sleep apnea Back pain GERD - Gastro-esophageal reflux disease R renal cyst Histories Past Medical History: No active or resolved past medical history items have been selected or recorded. Family History: No family history items have been selected or recorded. Procedure history: Knee replacement ([id number]). back surgery. Operative procedure on shoulder ([id number]). hernia repair. Social History Social & Psychosocial Habits No Data Available . Physical Examination VS/Measurements Vital Signs/Vital Measures 07/08/2019 7:00 EDT Systolic Blood Pressure 135 mmHg Diastolic Blood Pressure 79 mmHg Temperature Source Temporal artery scanning Temperature Mode Fahrenheit Temperature, Fahrenheit 97.8 Deg F Heart Rate Monitored 74 bpm Respiratory Rate 15 Breaths/Min Oxygen Saturation 97 % , Vitals Signs (last 24 hrs) Last Charted Minimum Maximum Temp 97.8 (JUL 07:) 97.8 (JUL 07:) 97.8 (JUL 07:) Mon HR 74 (JUL 07:) 74 (JUL 07:) 74 (JUL 07:) Resp Rate 15 (JUL 07:) 15 (JUL 07:) 15 (JUL 07:) SBP 135 (JUL 07:) 135 (JUL 07:00) 135 (JUL 07:) DBP 79 (JUL 07:) 79 (JUL 07:) 79 (JUL 07:) SpO2 97 (JUL 07:) 97 (JUL 07:) 97 (JUL 07:) General: Alert and oriented, No acute distress. Eye: Pupils are equal, round and reactive to light, Extraocular movements are intact, glasses. HENT: Normocephalic, Normal hearing. Neck: Supple, Non-tender. Respiratory: Lungs are clear to auscultation, Respirations are non-labored. Cardiovascular: Normal rate, Regular rhythm, No murmur, No gallop, No edema. Gastrointestinal: Soft, Non-tender. Genitourinary: No costovertebral angle tenderness. Lymphatics: No lymphadenopathy neck, axilla, groin. Musculoskeletal: Normal range of motion, Normal strength. Integumentary: Warm, Dry, [place]. Neurologic: Alert, Oriented. Psychiatric: Cooperative, Appropriate mood & affect. Review / Management Results review: No qualifying data available. Impression and Plan Condition: Stable. Electronically signed by Tanisha Cotto Conversion Product Management Specialist Cerner at 08/16/2022 8:42 AM CDT documented in this encounter Plan of Treatment Not on file documented as of this encounter Visit Diagnoses Not on filedocumented in this encounter
--- OUTSIDE RECORDS SUMMARY | 2024-12-03 11:53 | XMS_ITS | Encounter Summary ---
Author Organization [employer] ([place], [place], [place], [place]) Address [address] [place] [address] Care Team Providers Care Lace Winder Name Role Phone Unavailable Primary Care Provider Unavailabl e Encounter Details Date Type Department Care Team (Late st Contact Info) Description 07/09/2019 Transcribed Document [facility] [place] [facility] [address] ProviderDeborah MD [address] [place] [address] Social History Tobacco Use Types [...] Conversion Note - Deborah ProviderMD - 07/09/2019 1:01 PM CDT Patient Education Materials Follows: Laparoscopic Nephrectomy, Care After Refer to this [...] and water are not available, use hand blow machine tender starch spraying. ? Change your dressing as told by [...] 01/06/2016 Document Revised: 05/31/2017 Document Reviewed: 09/09/2015 Elsevier Interactive Patient Education ? 2019 [employer] documented in this encounter Plan of Treatment Not on file documented as of this encounter Visit Diagnoses Not on filedocumented in this encounter
--- OUTSIDE RECORDS SUMMARY | 2024-12-03 11:53 | XMS_ITS | Encounter Summary ---
Author Organization [employer] ([place], [place], [place], [place]) Address [address] [place] [address] Care Team Providers Care Public Area Supervisor Name Role Phone Unavailable Primary Care Provider Unavailabl e Encounter Details Date Type Department Care Team (Late st Contact Info) Description 07/09/[address] [facility] [place] Family [place] [address] [place] [address] ProviderDeborah MD [address] [place], [place] [id number] Social History Tobacco Use Types Packs/Day Years Used Date Smoking Tobacco: Never Assessed Sex and Gender Information Value Date Recorded Sex Assigned at Male 10/26/2021 4:50 PM CDT Legal Sex Male 4:50 PM CDT Gender Identity Male 10/26/2021 4:50 PM CDT Sexual Orientation Not on file documented as of this encounter Miscellaneous Notes * Cerner Conversion Note - Historical ProviderMD - 07/09/2019 2:00 AM CDT Rv Detailer Details Entered On: 07/09/2019 4:09 EDT Performed On: 07/09/2019 2:00 EDT by Henny Pruitt, IVET Order Details Transport Mode Order Detail : Ambulatory Isolation Precautions Order Detail : Standard Precautions Order Detail : N/A IV Order Detail : 1 Oxygen Order Detail : 0 Nurse Collect Order Detail : 0 Lift/Transfer : Minimal Central Line Order Detail : No Room Service : Needs Assistance Arterial Line : No Henny Pruitt, IVET - 07/09/2019 4:09 EDT documented in this encounter Plan of Treatment Not on file documented as of this encounter Visit Diagnoses Not on filedocumented in this encounter
--- OUTSIDE RECORDS SUMMARY | 2024-12-03 11:53 | XMS_ITS | Encounter Summary ---
Author Organization [employer] ([place], [place], [place], [place]) Address [address] [place] [address] Care Team Providers Care Assembler Wire Mesh Gate Name Role Phone Unavailable Primary Care Provider Unavailabl e Encounter Details Date Type Department Care Team (Late st Contact Info) Description 07/05/2019 Transcribed Document [facility] [place] [facility] [place] [address] ProviderDeborah MD [address] [place] [address] Social History Tobacco Use Types Packs/Day Years Used Date Smoking Tobacco: Never Assessed Sex and Gender Information Value Date Recorded Sex Assigned at Male 10/26/2021 4:50 PM CDT Legal Sex Male 4:50 PM CDT Gender Identity Male 10/26/2021 4:50 PM CDT Sexual Orientation Not on file documented as of this encounter Miscellaneous Notes * Cerner Conversion Note - Historical ProviderMD - 07/05/2019 7:07 PM HYBRID TESTER PAT Adult Entered On: 07/05/2019 19:09 EST Performed On: 07/05/2019 19:07 EST by SAMRA ALBARADO RN Height and Weight, Clinical Dosing Height Source : Measured Height Entry Format : [place] Height, Feet : 5 ft(Converted to: 152 cm, 60 Inch) Height, Inches : 10 Inch(Converted to: 0 ft 10 Inch, 25.40 cm) Clinical Height : 177.8 cm Weight Source : Standing scale Weight Entry Format : [place] Clinical Dosing Weight : 91.5 kg Weight, Pounds : 201.3 lb Body Surface Area (BSA) : 2.09 m2 Body Mass Index : 28.9 kg/m2 (HI) [place] Body Weight : 72 kg RITESH SMITH RN - 07/08/2019 7:03 EDT Health Histories Smoking Status : Never (less than 100 in lifetime; none in last 30 days) Smokeless Tobacco Status : Never SAMRA ALBARADO RN - 07/05/2019 19:07 EST Social History (As Of: 07/05/2019 19:09:57 EST) Infectious Disease History COVID19 Screening : No Physical contact outside [place] in the last 30 days : No Infectious Disease History : Chicken pox/Shingles, Measles, Mumps Isolation Needed : Standard Tuberculosis Symptoms : None SAMRA ALBARADO RN - 07/05/2019 19:07 EST Anesthesia/Transfusion History Family History of Anesthesia Reaction : No prior transfusion(s) Blood Transfusion Acceptable to Patient : Yes Transfusion History : Prior anesthesia without reaction Family History of Anesthesia Reaction : None SAMRA ALBARADO RN - 07/05/2019 19:07 EST Advance Directive Patient has Advance Directive *Q : No, patient refuses Advance Directive information SAMRA ALBARADO RN - 07/05/2019 19:07 EST [place] Suicide Severity Rating Scale (C-SSRS) CSSRS Past Month Wish to be : No CSSRS Past Month Suicidal Thoughts : No CSSRS Lifetime Suicide Behavior : No Suicide Severity Rating Score : 0 Suicide Severity Rating : No Additional Care Required at this time SAMRA ALBARADO RN - 07/05/2019 19:07 EST Psychosocial History Currently in Unsafe Situation : No SAMRA ALBARADO RN - 07/05/2019 19:07 EST General Info Support Person/Patient Manager Lan : Yes Support Person/Pt Rep Name : stefania Cagle Support Person/Pt Rep Contact Information : [phone] [place] Family/Rep/Phys Notified of Admit : No Emergency Contact #1 : see above Emergency Contact #1 Phone Number : . Emergency Contact #1 Relationship : . Emergency Contact #2 : . Emergency Contact #2 Phone Number : . Emergency Contact #2 Relationship : . Information Obtained From : Patient, Spouse Primary Language : Pakistani Communication Barrier : None RITESH SMITH RN - 07/08/2019 7:03 EDT Shakir Scale Shakir Sensory Perception : No impairment Shakir Moisture : Rarely moist Shakir Activity : Walks frequently Shakir Mobility : No limitation Shakir Nutrition : Excellent Shakir Friction and Shear : No apparent problem Shakir Score : 23 SAMRA ALBARADO RN - 07/05/2019 19:07 EST Sleep Apnea Risk Assmt Hx of Obstructive Sleep Apnea Diagnosis : No Snore Loudly : No Tired, Fatigued, or Sleepy During Day : No Observed Stopping Breathing During Sleep : No Have/Are Being Treated for Hypertension : No BMI Greater Than 35 kg/m2 : No Age over 50 Years Old : Yes Neck Circumference Greater Than 40 cm : No Gender Male : Yes STOP-BANG Sleep Apnea Risk Level Score : 2 SAMRA ALBARADO RN - 07/05/2019 19:07 EST documented in this encounter Plan of Treatment Not on file documented as of this encounter Visit Diagnoses Not on filedocumented in this encounter
--- OUTSIDE RECORDS SUMMARY | 2024-12-03 11:53 | XMS_ITS | Encounter Summary ---
Author Organization [employer] ([place], [place], [place], [place]) Address [address] [place] [address] Care Team Providers Care Silver Service Waiter Name Role Phone Unavailable Primary Care Provider Unavailabl e Encounter Details Date Type Department Care Team (Late st Contact Info) Description 07/08/2019 Transcribed Document [facility] [place] [facility] [place] [address] ProviderDeborah MD [address], [place] [id number] Social History Tobacco Use Types Packs/Day Years Used Date Smoking Tobacco: Never Assessed Sex and Gender Information Value Date Recorded Sex Assigned at Male 10/26/2021 4:50 PM CDT Legal Sex Male 4:50 PM CDT Gender Identity Male 10/26/2021 4:50 PM CDT Sexual Orientation Not on file documented as of this encounter Miscellaneous Notes * Cerner Conversion Note - Historical ProviderMD - 07/08/2019 5:17 AM CDT Admission History, Adult Entered On: 07/08/2019 17:20 EDT Performed On: 07/08/2019 5:17 EDT by Yola Bowman Rn Advance Directive Patient has Advance Directive *Q : No, patient refuses Advance Directive information Yola Bowman Rn - 07/08/2019 17:18 EDT Anesthesia/Transfusion History Family History of Anesthesia Reaction : No prior transfusion(s) Blood Transfusion Acceptable to Patient : Yes Transfusion History : Prior anesthesia without reaction Family History of Anesthesia Reaction : None Yola Bowman Rn - 07/08/2019 17:18 EDT Functional Assessment Living Situation : Home Persons Assisting Patient at Home : Spouse Current Daily Living Assistance : None Sensory Deficits : None Mobility Assistance Prior to Admission : Independent [place] Hx Falls Immediate/Within 3 Months : No Current Home Treatments : None Yola Bowman Rn - 07/08/2019 17:18 EDT General Info Support Person/Patient Tile Decorator : Yes Support Person/Pt Rep Name : meghan Cagle Support Person/Pt Rep Contact Information : [phone] [place] Family/Rep/Phys Notified of Admit : No Emergency Contact #1 : Meghan Kuhn Emergency Contact #1 Emergency Contact #1 Relationship : spouse Emergency Contact #2 : .na Emergency Contact #2 Phone Number : na Emergency Contact #2 Relationship : .na Information Obtained From : Patient, Spouse Primary Language : [place]ian Communication Barrier : None Yola Bowman Rn - 07/08/2019 17:18 EDT Fall Risk Scales ABCs Fall Injury Risk Identification : Surgery ABC Fall Injury Risk : Moderate to high injury risk [place] Hx Falls Immediate/Within 3 Months : No [place] Secondary Diagnosis : Yes [place] Use of Ambulatory Aid : Bed rest/Nurse assist [place] IV Therapy or IV Access : Yes [place] Gait/Transferring : Weak [place] Mental Status : Oriented to own ability [place] Fall Risk Score : 45 [place] Fall Scale Risk Level : 25-45 Medium Risk [place] Fall Interventions : Adequate lighting, Assistive devices within reach, Bed in low position, Call device within reach, Fall prevention handout/education per facility policy, Frequent orientation to call device, Frequent orientation to surroundings, Hourly comfort/safety rounds, Non-slip footwear, Personal items within reach, Reinforced to call for assistance before getting out of bed, Room free of clutter/spills, Upper side-rails up, Wheels locked, Wires/Cords secured Fall Moderate to High Risk Interventions : Supervise toileting as indicated, Transport methods appropriate to patient Fall Risk Scale Calc Temp : 0 Yola Bowman Rn - 07/08/2019 17:20 EDT Health Histories Smoking Status : Never (less than 100 in lifetime; none in last 30 days) Smokeless Tobacco Status : Never Yola Bowman Rn - 07/08/2019 17:20 EDT Social History (As Of: 07/08/2019 17:22:08 EDT) Height and Weight, Clinical Dosing Height Source : Measured Height Entry Format : [place] Height, Feet : 5 ft(Converted to: 152 cm, 60 Inch) Height, Inches : 10 Inch(Converted to: 0 ft 10 Inch, 25.40 cm) Clinical Height : 177.8 cm Weight Source : Standing scale Weight Entry Format : [place] Clinical Dosing Weight : 91.5 kg Weight, Pounds : 201.3 lb Body Surface Area (BSA) : 2.09 m2 Body Mass Index : 28.9 kg/m2 (HI) [place] Body Weight : 72 kg Yola Bowman Rn - 07/08/2019 17:20 EDT Infectious Disease History COVID19 Screening : No Physical contact outside US in the last 30 days : No Infectious Disease History : Chicken pox/Shingles, Measles, Mumps Isolation Needed : Standard Tuberculosis Symptoms : None Yola Bowman Rn - 07/08/2019 17:20 EDT Influenza Vaccine Asmt, Adult Previous Vaccines from Immunization Schedule : No qualifying data available. Influenza Immunization, Current Season : Yes Yola Bowman Rn - 07/08/2019 17:20 EDT Pneumococcal Vaccine Previous Vaccines from Immunization Schedule : No qualifying data available. Pneumonia Immunization Received : No Pneumococcal Risk Assessment < Age 65 : N/A- Patient 65 years of age or older Pneumococcal Vaccine Contraindications : No contraindications to pneumococcal vaccine Transplant Workup/Recent Transplant : No Order for Pneumococcal Vaccine : Declined Vaccination Yola Bowman Rn - 07/08/2019 17:20 EDT Nutrition History Feeding Ability : Independent Adaptive Feeding Equipment : None Adaptive Feeding Equipment : Regular Eating Poorly Due to Decreased Appetite : No Unplanned Weight Loss in Past 3-6 Months : No Malnutrition Screening Tool Total(mal) : 0 Malnutrition Screening Tool Risk Level : Patient not at risk Yola Bowman Rn - 07/08/2019 17:20 EDT [place] Suicide Severity Rating Scale (C-SSRS) CSSRS Past Month Wish to be : No CSSRS Past Month Suicidal Thoughts : No CSSRS Lifetime Suicide Behavior : No Suicide Severity Rating Score : 0 Suicide Severity Rating : No Additional Care Required at this time Yola Bowman Rn - 07/08/2019 17:20 EDT Psychosocial History Does Someone Depend on You for Care? : No Currently in Unsafe Situation : No Yola Bowman Rn - 07/08/2019 17:20 EDT Sleep Apnea Risk Assmt Hx of Obstructive [...] Sleep Apnea Risk Level Score : 2 Yola Bowman Rn - 07/08/2019 17:20 EDT Valuables and Belongings Valuables and Belongings : Clothing, Personal devices, Personal items Clothing : Common streetwear Clothing Disposition : Bedside Personal Device Disposition : Bedside Personal Devices : Glasses Personal Items : Cell phone Personal Items Disposition : Bedside Yola Bowman Rn - 07/08/2019 17:20 EDT documented in this encounter Plan of Treatment Not on file documented as of this encounter Visit Diagnoses Not on filedocumented in this encounter
--- OUTSIDE RECORDS SUMMARY | 2024-12-03 11:53 | XMS_ITS | Encounter Summary ---
Author Organization [employer] ([place], [place], [place], [place]) Address [address] [place] [address] Care Team Providers Care Ad Operations Coordinator Name Role Phone Unavailable Primary Care Provider Unavailabl e Encounter Details Date Type Department Care Team (Late st Contact Info) Description 07/08/2019 Transcribed Document [facility] [facility] [place] [address] ProviderDeborah MD [address] [place] [address] Social History Tobacco Use Types [...] Conversion Note - Historical ProviderMD - 07/08/2019 9:55 AM CDT [facility] Main OR PACU Summary Primary Physician: AXEL ALLRED MD-URO Finalized Date/Time: 07/08/19 13:42:38 Pt. Name: KISHA KUHN D.O.B./Sex: 1950 Male Med Rec #: [id number] Physician: AXEL ALLRED MD-URO Financial #: [id number] Pt. Type: I Room/Bed: /2 Admit/Disch: 07/08/19 05:21:00 - Institution: [facility] Main OR PACU I Case Times Entry 1 In PACU I 07/08/19 12:30:00 Ready for PACU 07/08/19 13:30:00 Discharge Discharge from PACU 07/08/19 13:30:00 I Last Modified By: CHARY ALVES RN 07/08/19 13:42:24 Finalized By: CHARY ALVES, RN Document Signatures Signed By: CHARY ALVES RN 07/08/19 13:42 Electronically signed by Kirti [facility] Conversion Freezer Worker Cerner at 08/16/2022 8:59 AM CDT documented in this encounter Plan of Treatment Not on file documented as of this encounter Visit Diagnoses Not on filedocumented in this encounter
--- OUTSIDE RECORDS SUMMARY | 2024-12-03 11:53 | XMS_ITS | Encounter Summary ---
Author Organization [employer] ([place], [place], [place], [place]) Address [address] [place] [address] Care Team Providers Care Patient Care Assistant Name Role Phone Unavailable Primary Care Provider Unavailabl e Encounter Details Date Type Department Care Team (Late st Contact Info) Description 07/08/2019 Transcribed Document [facility] [place] [facility] [place] [address] ProviderDeborah MD [address] [place] [address] Social History Tobacco Use Types [...] Historical ProviderMD - 07/08/2019 9:[address] [facility] Main OR IntraOp Summary Primary Physician: AXEL ALLRED MD-URO Finalized Date/Time: 07/09/19 13:57:18 Pt. Name: KISHA KUHN D.O.B./Sex: 1950 Male Med Rec #: [id number] Physician: AXEL ALLRED MD-URO Financial #: [id number] Pt. Type: O Room/Bed: [facility]/1 Admit/Disch: 07/08/19 05:21:00 - Institution: [facility] IntraOp Case Attendance Entry 1 Entry 2 Entry 3 Case Attendee AXEL ALLRED MD-URO KINLAW, DAVID, APRN,Saumya Baumann RN Role Performed Surgeon/Proceduralist, MACHINE REBUILDER/Nurse Welt Sewer Process Control Tech, First First Time In 07/08/19 09:16:00 07/08/19 09:16:00 07/08/19 09:16:00 Time Out 07/08/19 12:27:00 07/08/19 12:27:00 07/08/19 12:27:00 Procedure Nephrectomy Partial Nephrectomy Partial Nephrectomy Partial Robotic(Right) Robotic(Right) Robotic(Right) Other Attendee Superficial Wound Closed By: Last Modified By: Saumya Whitfield RN Poff, Janie, RN Poff, Janie, RN 07/08/19 12:27:09 07/08/19 12:27:09 07/08/19 12:27:09 Entry 4 Entry 5 Entry 6 Case Attendee Dar Humphries, NILES VIDES CANDY L. Role Performed Process Control Tech, Second Foot Piece Assembler, First Scrub, First Time In 07/08/19 09:16:00 07/08/19 09:16:00 07/08/19 09:16:00 Time Out 07/08/19 12:27:00 07/08/19 12:27:00 07/08/19 12:27:00 Procedure Nephrectomy Partial Nephrectomy Partial Nephrectomy Partial Robotic(Right) Robotic(Right) Robotic(Right) Other Attendee ORIENTEE Superficial Wound Closed By: Last Modified By: Saumya Whitfield RN Poff, Janie, RN Poff, Janie, RN 07/08/19 12:27:09 07/08/19 12:27:09 07/08/19 12:27:09 Entry 7 Entry 8 Entry 9 Case Attendee TOMAS RAMIREZ Adams, Derrico, REP-SSI OTHER, ATTENDEE #1 -ANS Role Performed Anesthesiologist of Squaring Shear Operator, Ancillary Squaring Shear Operator, Ancillary Record Time In 07/08/19 09:16:00 07/08/19 09:16:00 07/08/19 09:16:00 Time Out 07/08/19 12:27:00 07/08/19 12:27:00 07/08/19 12:27:00 Procedure Nephrectomy Partial Nephrectomy Partial Nephrectomy Partial Robotic(Right) Robotic(Right) Robotic(Right) Other Attendee HANK MIMS Superficial Wound Closed By: Last Modified By: Saumya Whitfield RN Poff, Janie, RN Poff, Janie RN 07/08/19 12:27:09 07/08/19 12:27:09 07/08/19 12:27:09 Entry 10 Case Attendee Britney Crowley RN Role Performed Process Control Tech, First Time In 07/08/19 11:05:00 Time Out 07/08/19 11:47:00 Procedure Nephrectomy Partial Robotic(Right) Other Attendee lunch relief Superficial Wound Closed By: Last Modified By: Saumya Whitfield RN 07/08/19 12:27:[address] [facility] IntraOp Case Attendance Audit 07/08/19 12:27:09 Job Spotter: [email or web address] Modifier: [email or web address] 1 <+> Time Out 1 <*> Procedure Nephrectomy Partial Robotic(Right) 2 <+> Time Out 2 <*> Procedure Nephrectomy Partial Robotic(Right) 3 <+> Time Out 3 <*> Procedure Nephrectomy Partial Robotic(Right) 4 <+> Time Out 4 <*> Procedure Nephrectomy Partial Robotic(Right) 5 <+> Time Out 5 <*> Procedure Nephrectomy Partial Robotic(Right) 6 <+> Time Out 6 <*> Procedure Nephrectomy Partial Robotic(Right) 7 <+> Time Out 7 <*> Procedure Nephrectomy Partial Robotic(Right) 8 <+> Time Out 8 <*> Procedure Nephrectomy Partial Robotic(Right) 9 <+> Time Out 9 <*> Procedure Nephrectomy Partial Robotic(Right) 10 <*> Procedure Nephrectomy Partial Robotic(Right) 07/08/19 11:47:45 Job Spotter: [email or web address] Modifier: [email or web address] 10 <+> Time Out 10 <*> Procedure Nephrectomy Partial Robotic(Right) 07/08/19 11:29:31 Job Spotter: [email or web address] Modifier: [email or web address] 5 <*> Procedure Nephrectomy Partial Robotic(Right) 6 <*> Case Attendee MARIAH TURNER 6 <*> Role Performed Scrub, First 6 <*> Time In 07/08/19 09:16:00 6 <*> Procedure Nephrectomy Partial Robotic(Right) 7 <*> Case Attendee TOMAS RAMIREZ MD-ANS 7 <*> Role Performed Anesthesiologist of Record 7 <*> Time In 07/08/19 09:16:00 7 <*> Procedure Nephrectomy Partial Robotic(Right) 8 <*> Case Attendee Tremayne Mclaughlin REP-SSI 8 <*> Role Performed Squaring Shear Operator, Ancillary 8 <*> Time In 07/08/19 09:16:00 8 <*> Procedure Nephrectomy Partial Robotic(Right) 9 <*> Case Attendee OTHER, ATTENDEE #1 9 <*> Role Performed Squaring Shear Operator, Ancillary 9 <*> Time In 07/08/19 09:16:00 9 <*> Procedure Nephrectomy Partial Robotic(Right) 9 <*> Other Attendee HANK PRASANNA <+> 10 Case Attendee <+> 10 Role Performed <+> 10 Time In <+> 10 Procedure <+> 10 Other Attendee 07/08/19 11:29:30 Job Spotter: [id number] Modifier: HOLTK 1 <*> Case Attendee AXEL ALLRED MD-URO 1 <*> Role Performed Surgeon/Proceduralist, First 1 <*> Time In 07/08/19 09:16:00 1 <*> Procedure Nephrectomy Partial Robotic(Right) 2 <*> Case Attendee AISHA CAMPBELL APRN,MACHINE REBUILDER 2 <*> Role Performed MACHINE REBUILDER/Nurse Welt Sewer 2 <*> Time In 07/08/19 09:16:00 2 <*> Procedure Nephrectomy Partial Robotic(Right) 3 <*> Case Attendee Saumya Whitfield, RN 3 <*> Role Performed Process Control Tech, First 3 <*> Time In 07/08/19 09:16:00 3 <*> Procedure Nephrectomy Partial Robotic(Right) 4 <*> Case Attendee Dar Humphries, RN 4 <*> Role Performed Process Control Tech, Second 4 <*> Time In 07/08/19 09:16:00 4 <*> Procedure Nephrectomy Partial Robotic(Right) 4 <*> Other Attendee ORIENTEE 5 <*> Case Attendee NILES DIAZ 5 <*> Role Performed Foot Piece Assembler, First 5 <*> Time In 07/08/19 09:16:00 07/08/19 11:05:55 Job Spotter: [id number] Modifier: [id number] <*> Role Performed Anesthesiologist 7 <*> Procedure Nephrectomy Partial Robotic(Right) 07/08/19 10:32:51 Job Spotter: [id number] Modifier: [id number] <+> 1 Procedure 2 <*> Procedure Nephrectomy Partial Robotic(Right) 3 <*> Procedure Nephrectomy Partial Robotic(Right) 4 <*> Procedure Nephrectomy Partial Robotic(Right) 5 <*> Procedure Nephrectomy Partial Robotic(Right) 6 <*> Procedure Nephrectomy Partial Robotic(Right) 7 <*> Procedure Nephrectomy Partial Robotic(Right) 8 <*> Procedure Nephrectomy Partial Robotic(Right) 9 <+> Time In 9 <*> Procedure Nephrectomy Partial Robotic(Right) 07/08/19 10:29:19 Job Spotter: [id number] Modifier: [id number] 2 <*> Procedure Nephrectomy Partial Robotic(Right) 3 <+> Time In 3 <*> Procedure Nephrectomy Partial Robotic(Right) 4 <+> Time In 4 <*> Procedure Nephrectomy Partial Robotic(Right) 5 <+> Time In 5 <*> Procedure Nephrectomy Partial Robotic(Right) 6 <+> Time In 6 <*> Procedure Nephrectomy Partial Robotic(Right) 7 <+> Time In 7 <*> Procedure Nephrectomy Partial Robotic(Right) <+> 8 Case Attendee <+> 8 Role Performed <+> 8 Time In <+> 8 Procedure <+> 9 Case Attendee <+> 9 Role Performed <+> 9 Procedure <+> 9 Other Attendee 07/08/19 10:27:03 Job Spotter: [id number] Modifier: [id number] 2 <+> Time In 2 <*> Procedure Nephrectomy Partial Robotic(Right) <+> 3 Case Attendee <+> 3 Role Performed <+> 3 Procedure <+> 4 Case Attendee <+> 4 Role Performed <+> 4 Procedure <+> 4 Other Attendee <+> 5 Case Attendee <+> 5 Role Performed <+> 5 Procedure <+> 6 Case Attendee <+> 6 Role Performed <+> 6 Procedure <+> 7 Case Attendee <+> 7 Role Performed <+> [address] [facility] IntraOp Case Times Entry 1 Patient In Room Time 07/08/19 09:16:00 Out Room Time 07/08/19 12:27:00 Anesthesia Start Time 07/08/19 09:16:00 Stop Time 07/08/19 12:27:00 Surgery / Procedure Times Start Time 07/08/19 09:55:00 Stop Time 07/08/19 12:07:00 Last Modified By: Saumya Whitfield RN 07/08/19 12:27:[address] [facility] IntraOp Case Times Audit 07/08/19 12:27:06 Job Spotter: HIMA Modifier: POFFJAN <+> 1 Out Room Time <+> 1 Stop Time 07/08/19 12:24:07 Job Spotter: [id number] Modifier: POFFJAN <+> [address] [facility] IntraOp Cautery Entry 1 ESU Identification Cautery Type Monopolar ESU ID Number [id number] ID Type Hospital Number Cautery Settings Cut Setting 3 Coag Setting 3 Bipolar Setting 3 ESU Grounding Pad Ground Pad Type Adult Grounding Pad Site Right thigh Grounding Pad Dar Humphries RN Applied By Grounding Pad Site Warm, dry and intact Skin Condition Before Cautery Grounding Pad Site Warm, dry and intact Skin Condition After Cautery Last Modified By: Dar Humphries RN 07/08/19 10:34:[address] [facility] IntraOp Communication Entry 1 Entry 2 Entry 3 Communication To Family/Significant other Family/Significant other Family/Significant other Comment start update Closing Communication By Saumya Whitfield RN Edwards, Kelsey, RN Poff, Janie, RN Date and Time 07/08/19 09:57:00 07/08/19 11:28:00 07/08/19 12:01:00 Last Modified By: Dar Humphries RN Edwards, Kelsey, RN Edwards, Kelsey, RN 07/08/19 10:34:57 07/08/19 11:29:37 07/08/19 12:01:[address] [facility] IntraOp Communication Audit 07/08/19 12:01:18 Job Spotter: [email or web address] Modifier: HOLTK <+> 3 Communication By <+> 3 Date and Time <+> 3 Communication To <+> 3 Comment 07/08/19 11:29:37 Job Spotter: [email or web address] Modifier: HOLTK <+> 2 Communication By 07/08/19 11:29:03 Job Spotter: [id number] Modifier: HOLTK <+> 2 Date and Time <+> 2 Communication To <+> [address] [facility] IntraOp Counts Verification Entry 1 Procedure Nephrectomy Partial Robotic(Right) Count Info Count Type Sponge, Sharps, Instrument, Miscellaneous Counts Verification Baseline/pre-procedure Sequence Count Results Correct, surgeon notified Counts Performed By Count Performed By MARIAH TURNER (Scrub) Count Performed By Saumya Whitfield RN (RN) Last Modified By: Dar Humphries RN 07/08/19 10:35:[address] [facility] IntraOp Counts Final Entry 1 Procedure Nephrectomy Partial Robotic(Right) Final Count Info Count Type Sponge, Sharps, Miscellaneous Counts Verification Skin Closure/end of Sequence procedure Count Results Correct, surgeon notified Counts Performed By Count Performed By MARIAH TURNER (Scrub) Count Performed By Dar Humphries RN (RN) Last Modified By: Saumya Whitfield RN 07/08/19 12:25:[address] [facility] IntraOp Counts Final Audit 07/08/19 12:25:12 Job Spotter: [email or web address] Modifier: HIMA 1 <*> Procedure Nephrectomy Partial Robotic(Right) 1 <+> Count Performed By (Scrub) 1 <+> Count Performed By (RN) [facility] IntraOp Cultures and Spec Summary Entry 1 Cultrures and Specimens Specimen Ordered: Yes Test(s) Routine/Path-Lab Requested/Final Disposition Last Modified By: Dar Humphries RN 07/08/19 10:54:19 General Comments: a: Right renal mass - frozen b. Right Renal Mass Permanent [facility] IntraOp Delays Entry 1 Delay Reason Other Duration 145 Minute(s) Comment waiting on surgeon, waiting on imaging d/t patient forgetting CT scan disc at home. Last Modified By: Dar Humphries RN 07/08/19 10:37:[address] [facility] IntraOp Departure from OR Entry 1 Integumentary Assessment Integumentary WDL with patient Assessment WDL specific variances Patient's Normal Surgical incisions = Integumentary abdomen Variance(s) Transfer/Handoff Transfer to PACU Phase I Handoff Method Phone call Handoff Reported to HERRERA MONTANO RN Post-op Transport Stretcher/Gurney Via Patient Transport Dar Humphries, IVET, Accompanied by AISHA CAMPBELL APRN,MACHINE REBUILDER Last Modified By: Suamya Whitfield RN 07/08/19 12:24:[address] [facility] IntraOp Departure from OR Audit 07/08/19 12:24:59 Job Spotter: [id number] Modifier: HIMA 1 <*> Integumentary Assessment WDL WDL 1 <+> Patient's Normal Integumentary Variance(s) 1 <+> Patient Transport Accompanied by 1 <+> Handoff Reported to 1 <+> Handoff Method [facility] IntraOp Dressing and Packing Entry 1 Type Dressing Location Abdomen Wound Dressing Item Skin Closure Glue Applied By NILES DIAZ Last Modified By: Saumya Whitfield RN 07/08/19 12:24:[address] [facility] IntraOp Fire Risk Assessment Entry 1 Fire Info Surgical Site or 0- No Incision Above the Xyphoid Open O2 Source 0- No (Mask or Cannula) Available Ignition 1- Yes (ESU, Laser, Light Source) Fire Risk 1 Assessment Score Fire Score Fire Risk Yes Assessment Complete Fire Risk Saumya Whitfield RN Assessment Verified By Fire Risk 07/08/19 09:53:00 Assessment Verified Date/Time Fire Risk Standard Fire Yes Safety Precautions Followed Last Modified By: Dar Humphries RN 07/08/19 10:38:[address] [facility] IntraOp General Case Contract Processor 1 Case Information OR OR [address] [facility] Case Level 1 Room Verified Yes Wound Class I - Clean Specialty SN Urology Anesthesia Type General ASA Class 2 Diagnosis Preop Diagnosis right renal mass Postop Same As Preop Yes Postop Diagnosis right renal mass Last Modified By: Dar Humphries RN 07/08/19 10:44:[address] [facility] IntraOp General Case Data Audit 07/08/19 10:44:53 Job Spotter: [id number] Modifier: [id number] <+> 1 ASA Class <+> 1 Anesthesia Type <+> 1 Postop Same As Preop <+> 1 Preop Diagnosis <+> 1 Postop Diagnosis <+> [address] [facility] IntraOp Intraoperative Assessment Entry 1 Handoff Method Online nursing summary Valid History / Yes Physical in Chart Preoperative Yes Checklist Reviewed/Evaluated Allergies Reviewed Yes Patient is Latex No Sensitive Isolation Not applicable Precautions Noted Level of WDL Consciousness (WDL = Alert, Oriented to Person, Place, and Time) Skin Assessment Yes Verified Present Upon IVs Arrival to OR Last Modified By: Dar Humphries RN 07/08/19 10:40:[address] [facility] IntraOp Intraoperative Equipment Entry 1 Type Monitoring Equipment Equipment Lashay Suction System ID Number [id number] Intraop Monitoring Electrocardiogram Three lead placement (ECG) Electrode Placement Blood Pressure Arterial Pressure Line Source Blood Pressure Arterial Location Pulse Oximeter Hand, left Probe Site Antiembolic Devices Antiembolic Devices Sequential compression device, knee high Antiembolic Device Bilateral Location Antiembolic Device [id number] ID Number Scopes Photo/Video Documentation Photo No Video No Intraop Equipment Sequential compression Comment devices on and in operation prior to induction of anesthesia. Last Modified By: Dar Humphries RN 07/08/19 10:50:[address] [facility] IntraOp Medication Admin Entry 1 Entry 2 Entry 3 Medication/Irrigant KT TISSEEL FRZ 10ML LEATHA IRR 0.9% NACL LEATHA IRR STRL H2O [id number] 1000ML-[id number] 2000ML-478374 Combo Med List Time Administered 07/08/19 11:48:00 Route of Topical, on operative Laparoscopic irrigation Irrigation Administration site Dose Dose 10 Unit of Measure ml Volume Administered By NILES DIAZ KAREN A. GARCIA, KAREN A. Procedure Irrigation Irrigant Volume In 300 mL 200 mL Irrigant Volume Out 300 mL 200 mL Last Modified By: Dar Humphries RN Poff, Janie, RN Poff, Janie, RN 07/08/19 11:09:12 07/08/19 12:28:00 07/08/19 12:28:[address] [facility] IntraOp Medication Admin Audit 07/08/19 12:28:00 Job Spotter: [id number] Modifier: POFFJAN 2 <*> Medication/Irrigant LEATHA IRR 0.9% NACL 1000ML-425604 2 <*> Route of Administration laparoscopic irrigation 2 <*> Administered By AXEL ALLRED MD-URO 2 <+> Irrigant Volume Out 3 <*> Medication/Irrigant LEATHA IRR STRL H2O 2000ML-285286 3 <+> Administered By 3 <+> Irrigant Volume In 3 <+> Irrigant Volume Out 07/08/19 11:49:08 Job Spotter: [email or web address] Modifier: HOLTK <+> 3 Medication/Irrigant <+> 3 Route of Administration <+> 3 Time Administered 07/08/19 11:47:25 Job Spotter: [id number] Modifier: HOLTK <+> 2 Medication/Irrigant <+> 2 Route of Administration <+> 2 Administered By <+> [address] Volume In [facility] IntraOp Patient Positioning Entry 1 Procedure Nephrectomy Partial Robotic(Right) Body Position Lateral, right side up Left Arm Position Secured on padded arm board Right Arm Position Secured across chest Left Leg Position Other Right Leg Position Uncrossed, parallel Position Comments LEFT LEG FLEXED AND PADDED ON TABLE, RIGHT LEG ELEVATED ON PILLOWS AND PADS Feet Uncrossed Yes Pressure Points Yes Checked Positioning Devices Head Rest, Roll, Axillary, Adhesive Tape, Arm Board, Pad, Elbow, Pad (Other), Pad (Other), Pillows, Safety Strap, Thighs, Pad, Heel, Pad, Mattress, Roll (Other), Safety Strap, Leg(s) Pad/Roll Location knee, ankle, left arm Positioned By Saumya Whitfield RN, Dar Humphries RN, AXEL ALLRED MD-URO, NILES DIAZ, AISHA CAMPBELL, PRESSURIZER,MACHINE REBUILDER Position Verified Positioning Yes Verified by Anesthesia Positioning Yes Verified by Surgeon Last Modified By: Dar Humphries RN 07/08/19 10:32:[address] [facility] IntraOp Sign In Entry 1 Patient, Site, Yes Procedure Identified Surgical Consent Yes Confirmed Relevant Surgical Yes Documents Available Surgical Site Yes Marked by person performing procedure Anesthesia Machine Yes Check Completed Medication Checks Yes Completed Allergies No Airway Difficult Yes Airway/Aspiration Risk Difficult Yes Airway/Aspiration Intervention Equipment Available Blood Loss Risk Yes Blood Loss Yes Intervention Equipment Prepared and Ready Blood Identifiers Yes Verified Per Policy Hypothermia Risk Yes Warming Measures Yes Taken Last Modified By: Dar Humphries RN 07/08/19 10:37:[address] [facility] IntraOp Sign In Audit 07/08/19 10:37:43 Job Spotter: [id number] Modifier: [id number] 1 <*> Allergies Yes [facility] IntraOp Sign Out Entry 1 RN Confirmation Surgical Yes Procedure(s) Identified Instrument, Sponge Yes and Sharps Counts Correct/Documented Equipment Problems N/A Documented Specimen Labeled Yes Correctly Urinary Catheter Yes Documented in IView Arellano Patient Yes Recovery Concerns Reviewed with Anesthesia Provider, Surgeon and RN Arellano Patient Yes Management Concerns Reviewed with Anesthesia Provider, Surgeon and RN Safety Checklist Yes Elements Complete? RN Sign Out Saumya Whitfield RN Signature RN Sign Out 07/08/19 12:26:00 Signature Date/Time Plan of Care Outcome - Fire Risk OUTCOME STATEMENT: Goal met Patient is free from injury related to surgical fire Plan of Care Outcome - Pt Positioning OUTCOME STATEMENT: Goal met Absence of signs and symptoms of positioning injury. Plan of Care Outcome - Skin Prep OUTCOME STATEMENT: Goal met Intraoperative care is consistent with measures to prevent infection Plan of Care Outcome - Xray/Images OUTCOME STATEMENT: N/A Absence of observable signs or symptoms of radiation injury Plan of Care Outcome - Counts OUTCOME STATEMENT: Goal met Absence of signs and symptoms of injury related to extraneous objects Last Modified By: Saumya Whitfield RN 07/08/19 12:27:[address] [facility] IntraOp Sign Out Audit 07/08/19 12:27:01 Job Spotter: [email or web address] Modifier: HIMA <+> 1 RN Sign Out Signature Date/Time [facility] IntraOp Skin Prep Entry 1 Procedure Nephrectomy Partial Robotic(Right) Prescribed Yes Pre-Surgical Prep Completed Prep Area Abdomen Intraop Prep Integumentary WDL Assessment WDL Prep Agents Chloraprep Prep by Dar Humphries RN Hair Removal Methods Clipper/Scissors Hair Removal Site abdomen Hair Removal By NILES DIAZ Last Modified By: Dar Humphries RN 07/08/19 10:52:[address] [facility] IntraOp Surgical Procedures Entry 1 Procedure Nephrectomy Partial Robotic Modifiers Right Additional (RT ROBOTIC PARTIAL Procedure NEPHRECTOMY) Description Primary Procedure Yes Primary Surgeon AXEL ALLRED MD-URO Start 07/08/19 09:55:00 Stop 07/08/19 12:07:00 Anesthesia Type General Specialty SN Urology Wound Class I - Clean Last Modified By: Saumya Whitfield RN 07/08/19 12:24:[address] [facility] IntraOp Surgical Procedures Audit 07/08/19 12:24:19 Job Spotter: [id number] Modifier: HIMA <+> [address] [facility] IntraOp Temp Regulation Devices Entry 1 Temp Regulation Temperature Warm blankets Regulation Device Temperature Upper body, Lower body Regulation Site Temperature AISHA CAMPBELL, МАРИНА,MACHINE REBUILDER Regulation Device Applied by Temperature monitored per Regulation Comment anesthesia, arron paez available Last Modified By: Dar Humphries RN 07/08/19 10:53:[address] [facility] IntraOP Time Out Entry 1 Procedure to be Nephrectomy Partial Performed Robotic(Right) Time Out Time Out Pause Time 07/08/19 09:54:00 All activity Yes suspended (unless life threatening emergency) Team Verbally Correct patient Confirms Information identity, Correct side and site are marked, Consent form is present and accurate, Agreement on the procedure to be done, Correct patient position, Relevant images/results properly labeled/appropriately displayed, Confirm antibiotics have been administered, Confirm the skin prep has dried, Performed in location of procedure after prepped/draped Antibiotic Yes Prophylaxis Administered Or In Progress Within the Last 60 Minutes Beta Jessica N/A Administered Venous Yes Thromboembolism Prophylaxis Required Anticipated Critical Events Surgeon None expected Anesthesia Provider None expected Nursing Assures Sterility of instruments Essential Imaging Yes Labeled and Displayed Last Modified By: Dar Humphries RN 07/08/19 10:40:03 Case Comments <None> Finalized By: ERUM CARLIN Document Signatures Signed By: Saumya Whitfield RN 07/08/19 12:28 ERUM CARLIN 07/09/19 13:57 Unfinalized History Date/Time Username Reason for Unfinalizing Freetext Reason for Unfinalizing 07/09/19 13:56 JOY Correct Billing documented in this encounter Plan of Treatment Not on file documented as of this encounter Visit Diagnoses Not on filedocumented in this encounter
--- OUTSIDE RECORDS SUMMARY | 2024-12-03 11:53 | XMS_ITS | Encounter Summary ---
Author Organization [employer] ([place], [place], [place], [place]) Address [address] [place] [address] Care Team Providers Care Audiovisual Lead Technician Name Role Phone Unavailable Primary Care Provider Unavailabl e Encounter Details Date Type Department Care Team (Late st Contact Info) Description 07/08/2019 Transcribed Document [facility] [place] [facility] [place] [address] ProviderDeborah MD [address] [place] [address] Social History Tobacco Use Types [...] Conversion Note - Historical ProviderMD - 07/08/2019 7:30 AM CDT [facility] Main OR Preop Summary Primary Physician: AXEL ALLRED MD-URO Finalized Date/Time: 07/08/19 09:18:04 Pt. Name: KISHA KUHN D.O.B./Sex: 1950 Male Med Rec #: [id number] Physician: AXEL ALLRED MD-URO Financial #: [id number] Pt. Type: I Room/Bed: /2 Admit/Disch: 07/08/19 05:21:00 - Institution: [facility] PreOp Case Times Entry 1 In Preop 07/08/19 05:30:00 Ready for Holding n/a Room Patient Ready for 07/08/19 08:00:00 Surgery Patient Out of Preop 07/08/19 09:14:00 Patient Out of n/a Holding Room Last Modified By: RITESH SMITH RN 07/08/19 09:17:57 [facility] PreOp Case Times Audit 07/08/19 09:17:57 Rn Bsn: [email or web address] Modifier: [email or web address] <+> 1 Patient Out of Preop 07/08/19 08:04:54 Rn Bsn: [email or web address] Modifier: ROMEROAV <+> 1 Patient Ready for Surgery Finalized By: RITESH SMITH RN Document Signatures Signed By: RITESH SMITH RN 07/08/19 09:18 Electronically signed by [facility] Conversion Incubator Operator Cerner at 08/16/2022 9:10 AM CDT documented in this encounter Plan of Treatment Not on file documented as of this encounter Visit Diagnoses Not on filedocumented in this encounter
--- OUTSIDE RECORDS SUMMARY | 2024-12-03 11:53 | XMS_ITS | Referral Summary ---
Author Organization [employer] ([place], [place], [place], [place]) Address [address] [place] [address] Care Team Providers Care Stitcher Special Machine Name Role Phone Unavailable Primary Care Provider [...]
--- OUTSIDE RECORDS SUMMARY | 2024-12-03 11:53 | XMS_ITS | Encounter Summary ---
Author Organization [employer] ([place], [place], [place], [place]) Address [address] [place] [address] Care Team Providers Care Plant Hr Manager Name Role Phone Unavailable Primary Care Provider Unavailabl e Encounter Details Date Type Department Care Team (Late st Contact Info) Description 07/09/2019 Transcribed Document [facility] [place] [facility] [address] [place] [address] ProviderDeborah MD [address] [place], [place] [id number] Social History Tobacco Use Types Packs/Day Years Used Date Smoking Tobacco: Never Assessed Sex and Gender Information Value Date Recorded Sex Assigned at Male 10/26/2021 4:50 PM CDT Legal Sex Male 4:50 PM CDT Gender Identity Male 10/26/2021 4:50 PM CDT Sexual Orientation Not on file documented as of this encounter Miscellaneous Notes * Cerner Conversion Note - Historical ProviderMD - 07/09/2019 8:32 AM CDT UM Authorization Entered On: 07/09/2019 8:32 EDT Performed On: 07/09/2019 8:32 EDT by SUE CH RN Primary Insurance Authorization Authorization and Policy Numbers : Insurance 1 Health Plan: MEDICARE Policy Number: [id number] Authorization Number: Insurance Primary Name : MEDICARE Policy Number: [id number] Authorized Service Begin Date-Primary : 07/08/2019 EDT Historical Authorization Comments-Primary : No Authorization Comments Found SUE CH RN - 07/09/2019 8:32 EDT documented in this encounter Plan of Treatment Not on file documented as of this encounter Visit Diagnoses Not on filedocumented in this encounter
--- OUTSIDE RECORDS SUMMARY | 2024-12-03 11:53 | XMS_ITS | Encounter Summary ---
Author Organization [employer] ([place], [place], [place], [place]) Address [address] [place] [address] Care Team Providers Care Life Science Technician Name Role Phone Unavailable Primary Care Provider Unavailabl e Encounter Details Date Type Department Care Team (Late st Contact Info) Description 07/08/2019 Transcribed Document [facility] [place] [facility] [place] [address] ProviderDeborah MD [address] [place] [address] Social History Tobacco Use Types [...] Conversion Note - Historical ProviderMD - 07/08/2019 4:25 PM CDT DATE OF PROCEDURE: SURGEON: Valentino Orellana MD CONTINUATION: The anterior surface of the right kidney was fully exposed. It was determined that there was an abundance of perinephric adipose tissue and this was cut through to expose the anterior surface of the right kidney with extensive dissection of this fatty tissue which was densely adherent in some locations to the kidney, being lower, one-half to two-thirds of the kidney was defatted. The lower pole of the kidney was elevated, exposing the posterior aspect of the kidney, and during this approach at dissection, it was determined that the isthmus or stalk on which the small tumor emanated from the kidney was transected, leaving a smooth fresh cut surface on the renal cortex surface. The tumor could be identified within the surrounding perinephric adipose tissue and the tumor was fully excised inclusive of some perinephric adipose tissue encompassing the tumor. The site on which the kidney had been transected was biopsied with hot scissors, procuring adequate renal tissue for frozen section analysis. This returned as normal renal tissue. A copious amount of water irrigant was used to lavage the operative bed. Bleeding was all well controlled and was minimal and at no time was excessive. During the dissection, the right renal artery along with the ureter were readily observed entering the hilar area and were protected. At the conclusion, the trocars were seen exiting the peritoneal cavity with no bleeding from the trocar sites. The 12 mm port was closed at the fascia level with a running 0 Vicryl stitch. The skin incisions were sealed with Dermabond, and the patient was awakened and transported to postop recovery in stable condition. He tolerated the procedure very well. There were no complications. /[id number] Valentino Orellana MD CGR/AQ / CGR / MODL /[id number] Electronically signed by Tanisha Cotto Conversion Accounts Receivable Administrator Cerner at 08/16/2022 8:58 AM CDT documented in this encounter Plan of Treatment Not on file documented as of this encounter Visit Diagnoses Not on filedocumented in this encounter
[2024-12-03 12:12] LABS: Hematocrit 44.2 % (42.0-52.0); Hemoglobin 14.6 g/dL (14.1-18.0); Immature Granulocytes % 0.3 %; Mean Corpuscular HGB Conc 33.0 g/dL (31.8-35.4); Mean Corpuscular Hemoglobin 29.1 pg (27.0-31.2); Mean Corpuscular Volume 88.2 fl (80-94); Nucleated Red Blood Cells % 0 %; Platelet Count 239 K/mm3 (142-424); Red Blood Count 5.01 M/mm3 (4.60-6.20); Red Cell Distribution Width-SD 44.6 fL; White Blood Count 6.9 K/mm3 (4.8-10.8)
[2024-12-03 12:45] LABS: Alanine Aminotransferase 22 U/L (12-78); Albumin Level 4.5 g/dl (3.5-5.0); Alkaline Phosphatase 105 U/L (38-126); Anion Gap 11.6 mEq/L (5-15); Aspartate Amino Transferase 38 U/L (17-59); Bilirubin,Direct 0.1 mg/dl (0.0-0.4); Bilirubin,Indirect 0.8 mg/dL (0.0-0.9); Bilirubin,Total 0.9 mg/dl (0.2-1.3); Bilirubin,Unconjugated 0.9 mg/dL (0.0-1.1); Blood Urea Nitrogen 15 mg/dl (9-20); Calcium 10.1 mg/dl (8.4-10.2); Carbon Dioxide 25 mmol/L (22.0-30.0); Chloride 106 mmol/L (98-107); Cholesterol 129 mg/dl (140-200); Creatinine,Serum 1.10 mg/dl (0.66-1.25); Estimated Glomerular Filt Rate 65 ml/min (>60); GFR (African American) 79 ML/MIN (>60); Glucose 92 mg/dl (74-100); HDL Cholesterol 43 mg/dl (40-60); Magnesium 1.7 mg/dl (1.6-2.3); Potassium 4.6 mmoL/L (3.5-5.1); Sodium 138 mmol/L (136-145); Total Protein,Serum 6.9 g/dl (6.3-8.2); Triglycerides 64 mg/dl (30-150)
== END 2024-12-03 23:59 | disposition home or self-care (01) ==
PROVIDERS: PCP Family Medicine; Visit Provider Physician Assistant
DX: I25.10 Atherosclerotic heart disease of native coronary artery without angina pectoris (principal); E78.2 Mixed hyperlipidemia
CPT/HCPCS: 36415; 80048; 80061; 80076; 83735; 85025

== ENCOUNTER 2025-01-06 08:18 | Day surgery (SDC) | payer OTHER, MEDICARE, SELFPAY ==
--- NOTE | 2025-01-02 13:15 | EXP.HP ---
History of Present Illness *Admission Date: 01/06/25 *History of present illness: Mr. Kuhn is a 74-year-old gentleman who is here for diagnostic/therapeutic EGD secondary to dysphagia, heartburn and regurgitation. He did have an endoscopy 5 years ago at which time dilation was performed. The examination is deemed medically necessary for diagnostic/therapeutic EGD. The patient has been seen, interviewed and examined prior to the procedure by both myself and the anesthesia provider. [facility] Disclaimer: The information contained in this section may have been updated after the patient was seen, as this information can be updated by other users. Medical History Abnormal ECG HLD (hyperlipidemia) Coronary artery disease Coronary artery calcification Abnormal findings on diagnostic imaging of heart and coronary circulation Equivocal stress test Abnormal result of cardiovascular function study Lumbar pain Musculoskeletal pain Nodule of kidney Surgical History S/P angioplasty with stent History of rotator cuff surgery History of back surgery History of hernia surgery History of knee replacement S/P total knee arthroplasty Family History Other Family history of cancer Family history of hyperlipidemia Family history of hypertension Family history of myocardial infarction Social History Smoking Status: Never smoker second hand exposure: No alcohol intake: never substance use type: denies use current occupational status: employed Travel in the last 8 weeks?: Inside the [place] household members: spouse 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 current occupational exposures/hazards: No caffeine: Yes Have you lived/traveled outside US in past 30 days?: No Contact w/someone who lives/traveled outside US past 30 days?: No Exposure to someone with infectious disease in past 14 days?: No Do you have a fever (greater than 100.4 F or 38 C)?: No Have you tested positive for COVID-19?: No Exposed to someone with COVID-19 in past 14 days?: No Do you have a sore throat?: No Do you have a cough?: No Do you have any weakness?: No Do you have any diarrhea?: No Are you experiencing any unusual bleeding?: No Do you have any muscle aches/pain?: No Do you have any abdominal pain?: No Are you experiencing loss of taste or smell?: No Other Medical History Have you received the Flu Vaccine for this season: No Have you received the Pneumonia Vaccine: No Review of Systems Review of Systems Review of systems (narrative): Negative *Cardiovascular Comments: Negative *Gastrointestinal Comments: Negative *Genitourinary Comments: Negative *Musculoskeletal Comments: Negative *Neurologic Comments: Negative Meds Home Medications and Allergies Home Medications ?Medication ?Instructions ?Recorded ?Confirmed ?Type aspirin 81 mg tablet,delayed 81 mg PO DAILY [facility] 06/02/23 01/06/25 History release amlodipine 5 mg tablet 5 mg PO DAILY 90 days #90 tabs 12/10/24 01/06/25 Rx rosuvastatin 5 mg tablet (Crestor) 5 mg PO DAILY 01/02/25 01/06/25 History New Prescriptions to Start Prescriptions: Allergies Allergy/AdvReac Type Severity Reaction Status Date / Time onion (ONION) AdvReac Mild Diarrhea Verified 01/06/25 08:49 Exam *Routine HEENT Exam Head: Present normocephalic Eye: Present EOMI and PERRL ENT: Present mucous membranes moist *Routine Neck Exam Neck: Present supple *Routine Respiratory Exam Respiratory: Present CTA bilaterally *Routine Cardiovascular Exam Cardiovascular: Present RRR *Routine Abdominal Exam Abdominal: Present soft and normoactive bowel sounds; Absent tenderness *Routine Rectal Exam Rectal:: deferred *Routine Genitalia Exam Genitalia:: deferred *Routine Extremities Exam Extremities: Absent cyanosis, clubbing or edema *Routine Skin Exam Skin: Present warm; Absent rash *Routine Neurological Exam Neurological: Present alert and oriented X3 Assessment and Plan *Assessment and plan (1) Dysphagia: Status: Acute Category: Medical Code(s): R13.10 - Dysphagia, unspecified (2) Heartburn: Status: Acute Category: Medical Code(s): R12 - Heartburn (3) Regurgitation of food: Status: Acute Category: Medical Code(s): R11.10 - Vomiting, unspecified Plan A/P: 1. Dysphagia, regurgitation of food and heartburn is the preprocedural diagnosis. The patient will be anesthetized/sedated using MAC sedation. The patient has been seen and examined. Cardiac and lung assessment prior to the examination is stable. Proceed with planned diagnostic/therapeutic EGD.
[2025-01-02 13:43] VITALS: BMI 26.4
[2025-01-06] VITALS (7 sets, daily range): BP systolic 96–138; BP diastolic 51–77; PULSE 57–67; RESP 18; TEMP 36.2–36.5; O2SAT 92–98
[2025-01-06] MEDS: LACTATED RINGERS 1000ML 1,000 ML 50 ML IV (08:42)
--- NOTE | 2025-01-06 09:02 | P.PNANES_ITS ---
[facility] Disclaimer: The information contained in this section may have been updated after the patient was seen, as this information can be updated by other users. Medical History Abnormal ECG HLD (hyperlipidemia) Coronary artery disease Coronary artery calcification Abnormal findings on diagnostic imaging of heart and coronary circulation Equivocal stress test Abnormal result of cardiovascular function study Lumbar pain Musculoskeletal pain Nodule of kidney Surgical History S/P angioplasty with stent History of rotator cuff surgery History of back surgery History of hernia surgery History of knee replacement S/P total knee arthroplasty Family History Other Family history of cancer Family history of hyperlipidemia Family history of hypertension Family history of myocardial infarction Social History Smoking Status: Never smoker second hand exposure: No alcohol intake: never substance use type: denies use current occupational status: employed Travel in the last 8 weeks?: Inside the [place] household members: spouse 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 current occupational exposures/hazards: No caffeine: Yes Have you lived/traveled outside US in past 30 days?: No Contact w/someone who lives/traveled outside US past 30 days?: No Exposure to someone with infectious disease in past 14 days?: No Do you have a fever (greater than 100.4 F or 38 C)?: No Have you tested positive for COVID-19?: No Exposed to someone with COVID-19 in past 14 days?: No Do you have a sore throat?: No Do you have a cough?: No Do you have any weakness?: No Do you have any diarrhea?: No Are you experiencing any unusual bleeding?: No Do you have any muscle aches/pain?: No Do you have any abdominal pain?: No Are you experiencing loss of taste or smell?: No [facility] Anesthesia Checklist Patient Identification Patient Identification: Arm Band and Verbal (Name & ) Structural Data Admitted From: Home Planned Operative Procedure/s: EGD Consent for Planned Operative Procedure(s) Verified: Yes Verified Documents: Surgical Consent NPO Status Verified Time NPO: 00:00 Chart Verification Results Verified: ECG Additional verifications Anesthesia Reactions: No Hx Blood Transfusions: No Blood Transfusion Reaction: No Airway Assessment Mallampati Score:: Class II C-Spine Mobility Assessed: Yes TMJ Mobility Assessed: Yes Dentition: Good Dentition Neurological Assessment Level of Consciousness: Awake, Alert and Appropriate Hx Seizures: No Numbness or tingling in extremities: No Anesthesia Plan Anesthesia Risk discussed: Yes Anesthesia Plan: Verified ASA Class: III Anesthesia Type: MAC
--- NOTE | 2025-01-06 10:04 | P.PCN_ITS ---
[facility] Procedure Note Date: 01/06/25 Time: 10:19 Procedure Note:: Upper Endoscopy Procedure Report: Esophagogastroduodenoscopy with cold biopsies and TTS balloon dilation Endoscopost: Tripp Abreu II, MD Referring Physician: Damion Petersen MD Date of Procedure: January 06, 2025 Equipment: Olympus GIF-1100 standard upper endoscope Sedation: MAC sedation Indications: Mr. Kuhn is a 74-year-old gentleman who is here for diagnostic/therapeutic EGD secondary to dysphagia, heartburn and regurgitation. He did have an endoscopy 5 years ago at which time dilation was performed. The patient does state that he has had some recurrent issues with dysphagia that began 4 to 5 months ago. He had a partial food impaction 1 month ago and had to regurgitate. He does get some heartburn and reflux. He reports no bloating, belching, indigestion or abdominal pain/discomfort. He reports regular bowel function. Procedure: Prior to the procedure, a history and physical exam was performed, and patient's medications and allergies were reviewed. The risks, benefits and alternatives of the sedation and procedure were discussed with the patient. All questions were answered and informed consent was obtained. The patient was brought to the procedure room. Patient identification and proposed procedure were verified by the physician and the nurse. The patient was placed in a left lateral decubitus position and the scope was passed under direct vision. Throughout the procedure, the patient's blood pressure, pulse, and oxygen saturations were monitored continuously. The upper GI endoscopy was accomplished without difficulty. The patient tolerated the procedure well. Findings: The scope was passed directly into the upper esophagus and advanced to the third portion of the duodenum. The post bulbar duodenum, ampulla and duodenal bulb were normal with normal mucosa and conniventes. The scope was withdrawn through a normal duodenal bulb and pylorus into the stomach. Within the antrum, there were some very small superficial erosions consistent with antral gastropathy and probable aspirin or NSAID gastropathy. The body and fundus of the stomach were normal. Upon retroflexion there was a very small sliding 1 to 2 cm hiatal hernia. Cold biopsies were taken at the incisura. The scope was then withdrawn into the esophagus. There was grade C?D reflux esophagitis with superficial linear ulceration in the distal esophagus that only extended 1.0-1.5 cm from the GE junction. There was a distal fibrotic ring. There was no evidence of Reza's esophagus. The fibrous ring was dilated to 20 mm/60 Welsh with a TTS hydrostatic balloon. The original diameter of the r ing was about 15 mm. The remainder of the esophageal mucosa was normal. Impression: 1. Grade C?the (LA classification) reflux esophagitis with distal esophageal fibrotic ring (dilated to 20 mm) and very small 1 to 2 cm hiatal hernia 2. Erosive gastropathy of antrum (probable aspirin or NSAID gastropathy) Plan: I will follow-up the biopsies. The patient does have complicated GERD and I would recommend long-term daily use of PPI or Voquezna.
== END 2025-01-06 11:30 | disposition home or self-care (01) ==
PROVIDERS: PCP Family Medicine; Visit Provider Internal Medicine Gastroenterology
PROC: 0DJ08ZZ Inspection of Upper Intestinal Tract, Via Natural or Artificial Opening Endoscopic (ICD-10-PCS; CPT 43239; principal; 2025-01-06 10:00)
DX: K21.00 Gastro-esophageal reflux disease with esophagitis, without bleeding (principal); K44.9 Diaphragmatic hernia without obstruction or gangrene; K22.2 Esophageal obstruction; K31.89 Other diseases of stomach and duodenum; E78.5 Hyperlipidemia, unspecified; I25.10 Atherosclerotic heart disease of native coronary artery without angina pectoris; Z79.82 Long term (current) use of aspirin
CPT/HCPCS: 43239; 43249; C1726; J2003; J2704; J7120